=== PATIENT | male | born 1955 | race Caucasian/White ===

== ENCOUNTER 2016-09-26 23:21 | Observation (INO) ==
--- NOTE | 2016-09-26 23:45 | Emergency Department Note ---
Disposition Clinical Impression: NSTEMI (non-ST elevated myocardial infarction) Disposition: Admitted As Inpatient Condition: Good Time of Disposition: 00:46 Chest Pain HPI - General Chief Complaint: ED Chest Pain Stated Complaint: "chest pain" Time Seen by Provider: 09/26/16 23:42 Source: patient Mode of arrival: ambulatory Limitations: no limitations Vital Signs Reviewed: Yes Nursing Notes Reviewed: Yes - History of Present Illness HPI Narrative: [id number] male history of CAD s/p CABG 2003, hypertension, hyperlipidemia, pack per day smoker presents to the ED with chest pain. He first experienced chest pain but did not want to tell anyone as his was sick. Pain worsened around 1600 today. He has some associated nausea, shortness of breath without vomiting. Pain is in the midsternum that radiates up both sides of the jaw and arms. This feels just like his last heart attack. He has a strong cardiac history. He has a nitro patch that he is suppose to wear all the time, currently on his right foot. Pain has not resolved with nitropaste. He took a full dose 324 aspirin prior to arrival. Follows with Dr. Shabazz, had stents placed last year. Takes aspirin and plavix. Denies any bloody stool, black tarry stool. Pt complaint: chest pain Severity scale (1-10): 3 - Related Data Home Medications Medication Instructions Recorded Confirmed Atorvastatin [Lipitor] 40 mg PO HS 05/29/16 09/27/16 Carvedilol 12.5 mg PO HS 05/29/16 09/27/16 Clopidogrel [Plavix] 75 mg PO DAILY 05/29/16 09/27/16 Isosorbide MONOnitrate [Isosorbide 120 mg PO HS 05/29/16 09/27/16 Mononitrate ER] Lisinopril [Zestril] 20 mg PO DAILY 05/29/16 09/27/16 Nitroglycerin 0.4 mg TD DAILY 05/29/16 09/27/16 Nitroglycerin [Nitrostat] 0.4 mg SL Q5M PRN 05/29/16 09/27/16 Oxycodone HCl 10 mg PO PRN PRN 05/29/16 09/27/16 Pantoprazole Sodium [Protonix] 40 mg PO DAILY 05/29/16 09/27/16 Quetiapine Fumarate [Seroquel Xr] 50 mg PO BID 05/29/16 09/27/16 Ranolazine [Ranexa] 1,000 mg PO BID 05/29/16 09/27/16 Venlafaxine HCl [Venlafaxine HCl 150 mg PO DAILY 05/29/16 09/27/16 ER] Aspirin 325 mg PO DAILY 08/16/16 09/27/16 ClonazePAM [Klonopin] 0.5 mg PO BID 09/27/16 09/27/16 Allergies Allergy/AdvReac Type Severity Reaction Status Date / Time No Known Allergies Allergy Verified 08/16/16 10:05 All systems ED: reviewed and negative except as stated. Constitutional: Denies: fever, chills Cardiovascular: Reports: chest pain. Denies: palpitations, dyspnea on exertion Respiratory: Denies: cough, dyspnea Gastrointestinal: Denies: abdominal pain, nausea, vomiting Genitourinary: Denies: urgency, dysuria, frequency Musculoskeletal: Denies: back pain Integumentary: Denies: rash, abrasion Chest Pain PMH - Past Medical History Medical history: Reports: arthritis, CHF, COPD, coronary artery disease, GERD, hyperlipidemia, hypertension, myocardial infarction Surgical history: Reports: no surgical history Psychiatric history: Reports: depression - Social History Smoking Status: Current every day smoker Alcohol use: Reports: none Drug use: Reports: none Physical Exam - General Limitations: no limitations General appearance: alert Course Course Narrative: History of CAD presents the ED with chest pain. He was a direct bed from triage with EKG changes in the anteroseptal and lateral leads, new T-wave inversions from prior 05/03/2013. He reports the pain is similar to his heart attack past. He continues to smoke. Pain radiates up the jaw. Chest pain workup initiated. His blood pressure is 150/90, give him a trial of nitroglycerin. Reports taken a full dose aspirin prior to arrival. Will likely admit. - Reevaluation(s) Reevaluation #1: Troponin elevated 0.09. Admit for NSTEMI. Pain did not improve much after 3 nitros. Morphine ordered for pain. Hospitalist paged for admission, NSTEMI and tobacco abuse. Time: 00:48 - Consultations Consultation #1: Spoke with on-call hospitalist pradip Prasad to admit for NSTEMI. After 3 nitro his pain did not improve much. Request to get pain controlled if not consult Cardiology. Lovenox 1mg/kg. Time: 00:48 Consultation #2: Pain improved, notified hospitalist pradip Prasad to admit to floor without cardiology consult. Time: 01:38 Vital Signs Temperature 98 F 09/26/16 23:36 Pulse Rate 74 09/26/16 23:36 Respiratory Rate 16 09/26/16 23:36 Blood Pressure 150/99 09/26/16 23:36 O2 Sat by Pulse Oximetry 98 09/26/16 23:36 Temperature 98 F 09/27/16 03:11 Pulse Rate 57 09/27/16 05:00 Respiratory Rate 18 09/27/16 05:00 Blood Pressure 106/63 09/27/16 05:00 O2 Sat by Pulse Oximetry 93 L 09/27/16 05:00 Oxygen Delivery Oxygen Delivery Room Air Chest Pain - Medical Records Medical records reviewed: Yes I reviewed the patient's medical records. - Lab Data Lab results reviewed: Yes I reviewed the patient's lab results. Result diagrams: 09/26/16 23:49 09/26/16 23:49 Lab Results 09/26/16 09/26/16 09/26/16 Range/Units 23:49 23:49 23:49 WBC 10.9 (4.3-11.1) K/mcL RBC 5.19 (4.19-5.50) M/mcL Hgb 14.6 (12.9-16.9) g/dL Hct 45.0 (37.5-50.1) % MCV 86.7 (83.0-100.0) fL MCH 28.1 (28.0-33.3) pg MCHC 32.4 (31.6-35.5) g/dL RDW 13.8 (11.5-14.5) % Plt Count 289 (140-400) K/mcL MPV 9.0 L (9.4-12.4) fL Immature Gran % 0.3 (0-4) % Seg Neutrophils % 59.5 % Lymphocytes % 26.6 % Monocytes % 7.8 % Eosinophils % 4.8 % Basophils % 1.0 % Neutrophils # 6.5 (1.6-8.9) K/mcL Lymphocytes # 2.9 (0.6-4.6) K/mcL Monocytes # 0.9 (0.0-1.3) K/mcL Eosinophils # 0.5 (0.0-0.6) K/mcL Basophils # 0.1 (0.0-0.2) K/mcL PT 11.7 (9.4-12.1) Seconds INR 1.1 APTT 33.0 (26.0-36.0) Seconds Sodium 138 (136-145) mEq/L Potassium 3.8 (3.5-4.5) mEq/L Chloride 107 (98-109) mEq/L Carbon Dioxide 25 (19-29) mEq/L BUN 18 (8-26) mg/dL Creatinine 0.99 (0.72-1.25) mg/dL Est GFR ( Amer) > 60 (> 60) Est GFR (Non-Af Amer) > 60 (> 60) BUN/Creatinine Ratio 18 (6-26) Glucose 122 H (70-99) mg/dL Calculated Osmolality 289 (280-300) Calcium 9.3 (8.6-10.8) mg/dL Troponin I (0-0.03) ng/mL 09/26/16 Range/Units 23:49 WBC (4.3-11.1) K/mcL RBC (4.19-5.50) M/mcL Hgb (12.9-16.9) g/dL Hct (37.5-50.1) % MCV (83.0-100.0) fL MCH (28.0-33.3) pg MCHC (31.6-35.5) g/dL RDW (11.5-14.5) % Plt Count (140-400) K/mcL MPV (9.4-12.4) fL Immature Gran % (0-4) % Seg Neutrophils % % Lymphocytes % % Monocytes % % Eosinophils % % Basophils % % Neutrophils # (1.6-8.9) K/mcL Lymphocytes # (0.6-4.6) K/mcL Monocytes # (0.0-1.3) K/mcL Eosinophils # (0.0-0.6) K/mcL Basophils # (0.0-0.2) K/mcL PT (9.4-12.1) Seconds INR APTT (26.0-36.0) Seconds Sodium (136-145) mEq/L Potassium (3.5-4.5) mEq/L Chloride (98-109) mEq/L Carbon Dioxide (19-29) mEq/L BUN (8-26) mg/dL Creatinine (0.72-1.25) mg/dL Est GFR ( Amer) (> 60) Est GFR (Non-Af Amer) (> 60) BUN/Creatinine Ratio (6-26) Glucose (70-99) mg/dL Calculated Osmolality (280-300) Calcium (8.6-10.8) mg/dL Troponin I 0.09 H* (0-0.03) ng/mL - Radiology Data Radiology results reviewed: Yes I reviewed the patient's radiology results. Chest X-Ray 09/26/16 23:42 IMPRESSION: No significant findings in the chest. D/ / Larry Lomas MD / Larry Lomas MD Interpreting Provider: Larry Lomas MD - EKG Data EKG attestation: Yes I reviewed and interpreted this EKG. EKG results narrative: EKG performed 2329 normal sinus rhythm 61 bpm, T wave inversions in V3-V6 as well as Lead II that are new from prior EKG 05/03/2013. He is having chest pain , DIRECT bed to 3 from triage. No STEMI pattern. Heart Score - Score History: Highly Suspicious EKG: Non Specific repolarisation Disturbance Age: 45-65 Risk Factors: 1-2 risk factors Troponin: 1-3x normal limit HEART Score Total: 6 Attestation Statement - Attestation Attestation: Dr. Dunlap note: Patient was seen in conjunction with resident Dr. Charles Chao; please see his chart for complete documentation. I spent [id number] time with the patient and agree with the patient's treatment and disposition. EKG was read and immediately upon arrival the patient. He admits he has been having pain for 2 days and did not want to tell me about his pain got worse tonight and went to both sides of his jaw. No diaphoresis at this time. Pain improved after nitroglycerin and morphine. He continues to smoke. He has had multiple cardiac events before and after his bypass surgery many years ago. Admitted in stabilized condition
[2016-09-26 23:57] LABS: Basophils # 0.1 K/mcL (0.0-0.2); Eosinophils # 0.5 K/mcL (0.0-0.6); Eosinophils % 4.8 %; Hemoglobin 14.6 g/dL (12.9-16.9); Immature Granulocytes % 0.3 % (0-4); Lymphocytes # 2.9 K/mcL (0.6-4.6); Lymphocytes % 26.6 %; Mean Corpuscular HGB Conc 32.4 g/dL (31.6-35.5); Mean Corpuscular Hemoglobin 28.1 pg (28.0-33.3); Mean Corpuscular Volume 86.7 fL (83.0-100.0); Monocytes # 0.9 K/mcL (0.0-1.3); Monocytes % 7.8 %; Neutrophils # 6.5 K/mcL (1.6-8.9); Platelet Count 289 K/mcL (140-400); Red Blood Count 5.19 M/mcL (4.19-5.50); Red Cell Distribution Width 13.8 % (11.5-14.5); Segmented Neutrophils % 59.5 %
[2016-09-26] MEDS: Nitroglycerin 0.4 MG TAB.SUBL SL PRN (23:57)
[2016-09-27] MEDS: Nitroglycerin 0.4 MG TAB.SUBL SL PRN ×2 (00:02→00:07)
[2016-09-27 00:03] LABS: INR 1.1; Prothrombin Time 11.7 Seconds (9.4-12.1)
[2016-09-27] MEDS ORDERED: 0.9 % Sodium Chloride 1,000 ML ONE ×3 (00:04→14:23)
[2016-09-27] MEDS ORDERED: 0.9 % Sodium Chloride 1,000 ML IVC ONE (00:05)
[2016-09-27 00:13] LABS: BUN/Creatinine Ratio 18 (6-26); Blood Urea Nitrogen 18 mg/dL (8-26); Calcium 9.3 mg/dL (8.6-10.8); Carbon Dioxide 25 mEq/L (19-29); Chloride 107 mEq/L (98-109); Glucose 122 mg/dL (70-99); Osmolality,Calculated 289 (280-300); Potassium 3.8 mEq/L (3.5-4.5); Sodium 138 mEq/L (136-145); eGFR For African Americans > 60 (> 60); eGFR For Non-African Americans > 60 (> 60)
[2016-09-27] MEDS ORDERED: *HR* Morphine 2 MG/ML SYRINGE IVP ONE (00:44)
[2016-09-27] MEDS ORDERED: *HR* Enoxaparin 80 MG/0.8 ML SYRINGE SQ STA (00:45)
--- NOTE | 2016-09-27 01:28 | Internal Med History&Physical ---
<Elmer Carpio - Last Filed: 09/27/16 02:13> Date of Encounter: 09/27/16 Time of Encounter: 01:24 Assessment and Plan (1) NSTEMI (non-ST elevated myocardial infarction) Current visit: Yes Status: Acute Possible NSTEMI given characteristics of chest pain at rest and elevated troponin with new t-wave inversions on EKG Will consult cardiology, appreciate recommendations Patient did receive a dose of therapeutic Lovenox, which will continue tomorrow Continue supportive measures with Morphine, Nitro drip, gentle maintenance IVF as he is NPO for possible intervention per cardiology Initial troponins 0.09, will trend x2 (2) CAD (coronary artery disease) of artery bypass graft Current visit: Yes Status: Chronic Continue home ASA, Ranexa, Lipitor, Coreg and Nitro Qualifiers: Qualified Code(s): I25.810 - Atherosclerosis of coronary artery bypass graft( s) without angina pectoris (3) HTN (hypertension) Current visit: No Status: Acute Qualifiers: Hypertension type: essential hypertension Qualified Code(s): I10 - Essential (primary) hypertension (4) Systolic CHF Current visit: No Status: Chronic Not in overt failure at this point as patient is not fluid overloaded He does not take any diuretics at home, will restart home Lisinopril when he advances diet Qualifiers: Congestive heart failure chronicity: chronic Qualified Code(s): I50.22 - Chronic systolic (congestive) heart failure (5) DVT prophylaxis Current visit: No Status: Acute Therapeutic Lovenox as above Internal Medicine - H&P: HPI Chief complaint: Chest pain Admitted From: Home Plans for Post Hospital Care: Home History of present illness: Mr. Blake is a 60 year old male who presents with chest pain that started last . He states that he has chronic chest pain intermittently and is usually relieved with Nitropaste. However these last few episodes were not relieved with Nitropaste and prompted him to visit the emergency department. He states the pain is located substernally and radiates to both jaws and both arms. The pain is not related with exertion or position, as it comes and goes randomly. He has had previous heart attacks and states this feels similar. He also reports intermittent shortness of breath, lightheadedness, and nausea but not denies any vomiting. Patient states that upon arrival to the ED the only thing that relieved his chest pain was morphine, however he still has mild substernal chest pain. Of note, patient has a significant cardiac history, including his first heart attack at age 38. He has also had a CABG in 2003 and received stents last year. He follows with Dr. Shabazz as an outpatient and recently had a loop recorder placed last month for history of TIAs, and has not been analyzed yet. Past Med Surg Social Fam HX - Past Medical History Medical history: arthritis, CHF, COPD, coronary artery disease, GERD, hyperlipidemia, hypertension, myocardial infarction Psychiatric history: depression - Past Surgical History Surgical History: no surgical history - Social History Smoking Status: Current every day smoker Smokeless Tobacco Status: Yes Alcohol use: none Drug use: none - Family History Mother Living Status: Hx Family Cardiac Disorders: Yes Hx Family Respiratory Disorders: No Hx Family Cancer: Yes Hx Family GI Disorders: No Hx Family Endocrine Disorder: Yes Hx Family Neuromuscular Disorders: No Hx Family Neurologic Disorders: Yes Hx Family HEENT Disorders: No Hx Family Autoimmune Disorders: No Internal Medicine - H&P: Meds Atorvastatin [Lipitor] 40 mg PO HS 05/29/16 [History] Carvedilol 12.5 mg PO HS 05/29/16 [History] Clopidogrel [Plavix] 75 mg PO DAILY 05/29/16 [History] Isosorbide MONOnitrate [Isosorbide Mononitrate ER] 120 mg PO HS 05/29/16 [ History] Lisinopril [Zestril] 20 mg PO DAILY 05/29/16 [History] Nitroglycerin 0.4 mg TD DAILY 05/29/16 [History] Nitroglycerin [Nitrostat] 0.4 mg SL Q5M PRN 05/29/16 [History] Oxycodone HCl 10 mg PO PRN PRN 05/29/16 [History] Pantoprazole Sodium [Protonix] 40 mg PO DAILY 05/29/16 [History] Quetiapine Fumarate [Seroquel Xr] 50 mg PO BID 05/29/16 [History] Ranolazine [Ranexa] 1,000 mg PO BID 05/29/16 [History] Venlafaxine HCl [Venlafaxine HCl ER] 150 mg PO DAILY 05/29/16 [History] Aspirin 325 mg PO DAILY 08/16/16 [History] ClonazePAM [Klonopin] 0.5 mg PO BID 09/27/16 [History] Allergies No Known Allergies Allergy (Verified 08/16/16 10:05) All Systems PM: A 10-system review of systems was performed and is negative for pertinent findings except as documented above in the HPI. - Constitutional Constitutional: no chills, no fever(s), no night sweats - EENT Eyes: no change in vision, no discharge, no pain, no photophobia Ears: no ear discharge, no ear pain, no tinnitus Nose, mouth and throat: no dysphagia, no nasal discharge, no neck pain, no sore throat - Cardiovascular Cardiovascular ROS IM: chest pain, dyspnea, lightheadedness, no diaphoresis, no palpitations, no syncope - Respiratory Respiratory: dyspnea, no cough, no wheezing, no excessive phlegm production - Gastrointestinal Gastrointestinal: nausea, no abdominal pain, no diarrhea, no hematemesis, no hematochezia, no melena, no vomiting - Musculoskeletal Musculoskeletal ROS IM: no numbness, no tingling - Integumentary Integumentary IM: no rash, no unusual bruising - Neurological Neurological ROS: no confusion, no convulsions, no focal weakness, no numbness, no tingling, no tremor(s) - Hematologic/Lymphatic Hematologic/Lymphatic: no easy bruising - Constitutional Vitals: Temp Pulse Resp BP Pulse Ox 98 F 56 16 159/87 97 09/26/16 23:36 09/27/16 01:11 09/27/16 01:12 09/27/16 01:12 09/27/16 01:11 General appearance: Present: cooperative, pleasant, no acute distress, answers questions appropriately - Head Head exam: Present: atraumatic, normocephalic - Eye Eye exam: Present: PERRL, conjuntiva pink, sclera anicteric - Neck Neck exam general surgery: Present: supple, trachea midline. Absent: lymphadenopathy - Respiratory Respiratory exam: Present: CTAB. Absent: accessory muscle use, rales, rhonchi, wheezes - Cardiovascular Cardiovascular exam: Present: RRR, +S1, +S2. Absent: diastolic murmur, gallop, rubs, systolic murmur - GI/Abdominal GI/Abdominal exam: Present: normal bowel sounds, soft, no peritoneal signs. Absent: distended, tenderness - Extremities Exam Extremities exam: Present: warm, radial pulses palpable and symetrical. Absent : calf tenderness, cyanotic, pedal edema - Neurological Exam Neurological exam: Present: alert, CN II-XII intact, no focal deficits. Absent : facial droop, speech deficit - Skin Skin exam: Present: dry, intact Internal Med - H&P Results - Labs CBC & Chem 7: 09/26/16 23:49 09/26/16 23:49 - EKG Data EKG shows normal: sinus rhythm Rate: normal - EKG Data Prior EKG available for review: yes When compared to previous EKG: there are significant changes Interpretation IM: other EKG comments: new t-wave inversions noted in lateral leads not seen in previous EKG 09/27/16 02:13 <Alejandrina Acosta - Last Filed: 09/27/16 05:21> Internal Medicine - H&P: HPI Admitted From: Emergency Dept History of present illness: Mr. Blake is a 60 year old male All Systems PM: A 10-system review of systems was performed and is negative for pertinent findings except as documented above in the HPI. - Constitutional Vitals: Temp Pulse Resp BP Pulse Ox 98 F 56 16 159/87 97 09/26/16 23:36 09/27/16 01:11 09/27/16 01:12 09/27/16 01:12 09/27/16 01:11 Internal Med - H&P Results - Labs CBC & Chem 7: 09/26/16 23:49 09/26/16 23:49 - Impressions ITS Impressions Chest X-Ray 09/26/16 23:42 IMPRESSION: No significant findings in the chest. D/ / Larry Lomas MD / Larry Lomas MD Interpreting Provider: Larry Lomas MD - Attending Attestation I examined this patient and my medical decision-making was reviewed with the Resident / Furniture Servicer (Dr Carpio). I agree with the documented findings, disposition and treatment plan as described except to the extent set forth below. 60 Y/M with history of CAD/CABG in 2003, current smoker presents with sharp, severe midsternal chest pain with radiation to jaws, constant with improvement with morphine and minimal improvement nitroglycerine. O/E: RRR, lungs clear to auscultation. EKG reviewed by me shows sinus rhythm, ST depression with T-wave inversion in V2 to V6 and lead 2. A/P: Acute coronary syndrome/NSTEMI: Aspirin, Lovenox, continue clopidogrel. Nitroglycerine infusion and morphine PRN. Cardiology consultation. Keep him nothing by mouth for possible cardiac catheterization.
[2016-09-27] MEDS ORDERED: Naloxone 0.4 MG/ML INJ IVP PRN (01:44)
[2016-09-27] MEDS ORDERED: Ondansetron 4 MG/2 ML VIAL IVP PRN (01:44)
[2016-09-27] MEDS ORDERED: Nitroglycerin 25 MG/250 ML INFUS..BTL IVC SCH (02:00)
[2016-09-27] MEDS: *HR* Morphine 2 MG/ML SYRINGE IVP PRN ×2 (02:35→20:07)
[2016-09-27] MEDS: 0.9 % Sodium Chloride 1,000 ML IVC SCH ×2 (03:12→22:47)
[2016-09-27 06:16] LABS: BUN/Creatinine Ratio 18 (6-26); Blood Urea Nitrogen 16 mg/dL (8-26); Calcium 8.3 mg/dL (8.6-10.8); Carbon Dioxide 24 mEq/L (19-29); Chloride 110 mEq/L (98-109); Chol/HDL Ratio 4.3 (0-4.9); Cholesterol 108 mg/dL (< 200); Glucose 100 mg/dL (70-99); HDL Cholesterol 25 mg/dL (40-59); LDL Cholesterol,Calculated 51 mg/dL (0-99); Magnesium 1.9 mg/dL (1.6-2.6); Osmolality,Calculated 291 (280-300); Phosphorous 3.1 mg/dL (2.3-4.7); Potassium 4.1 mEq/L (3.5-4.5); Sodium 140 mEq/L (136-145); Triglycerides 158 mg/dL (< 150); eGFR For African Americans > 60 (> 60); eGFR For Non-African Americans > 60 (> 60)
[2016-09-27] MEDS: Pantoprazole 40 MG VIAL IVP SCH (06:35)
[2016-09-27] MEDS: Lisinopril 20 MG TABLET PO SCH (08:00)
[2016-09-27] MEDS: Nicotine 21 MG PATCH.TD24 TD SCH (08:03)
[2016-09-27] MEDS: Aspirin 325 MG TABLET PO SCH (08:04)
[2016-09-27] MEDS: Ranolazine 500 MG TAB.ER.12H PO SCH ×2 (08:04→20:06)
[2016-09-27] MEDS: Venlafaxine XR (24 HR) 150 MG CAP.ER.24H PO SCH (08:04)
[2016-09-27] MEDS: clonazePAM 0.5 MG TABLET PO SCH ×2 (08:04→20:06)
--- NOTE | 2016-09-27 08:29 | Cardiology Consult Note ---
Date of Encounter: 09/27/16 Time of Encounter: 08:30 Assessment and Plan (1) NSTEMI (non-ST elevated myocardial infarction) Current Visit: Yes Status: Acute Per Cardiology: Troponin is elevated at 0.09 and 0.22. Currently chest pain-free on IV nitroglycerin drip.. ECG shows ST changes in leads 2, aVF, V3-V6. Discussed and reviewed with Dr. Sagar Suarez and Dr. Collins, plan for left heart catheterization today. Further recs after catheterization. (2) CAD (coronary artery disease) Current Visit: No Status: Chronic Per Cardiology: With CABG 4 in 2003. Last heart catheterization August 2014 showed patent SVG to LAD, SVG to diagonal 1, and SVG to PDA with patent stents. Patient had successful PTCA of proximal in-stent restenosis of the SVG to the OM1, however the failed attempt at PTCA and severe distal OM1 in-stent restenosis (noted to be small vessel). No LAI graft noted-- cath report reviewed with Dr. Collins and no LAI was used for CABG. On cath report was mention of suspicion of apical LV thrombus, however echo at that time showed no evidence of apical thrombus. On aspirin, Plavix, Lovenox, statin, beta vinay, CHANTAL inhibitor, long-acting nitrate, and max dose of Ranexa. Qualifiers: Coronary Disease-Associated Artery/Lesion type: [place] artery [place] vs. transplanted heart: [place] heart Associated angina: with stable angina Qualified Code(s): I25.118 - Atherosclerotic heart disease of [place] coronary artery with other forms of angina pectoris (3) Encounter for loop recorder check Current Visit: Yes Status: Acute Per Cardiology: Had suspected TIA April 2016. Now has loop recorder inserted July 2016. Patient appears to be asymptomatic with no concerns of A. fib. Telemetry reviewed and shows sinus rhythm with no arrhythmias noted. Will interrogate loop recorder for further evaluation Discussion w patient/family: The assessment and plan as outlined above was discussed with the patient and/or family members who expressed understanding and agreement. All questions were answered. Thank you for involving us in the care of your patient. Please call with any questions. History of Present Illness Consult date: 09/27/16 Requesting physician: Alejandrina Acosta Consult reason: CP Chief complaint: CP History of present illness: Mr. Blake is a 60 year old male with a relevant PMH: CAD with CABG 4 in 2003 and history of stenting, nicotine abuse, dyslipidemia, COPD, hypertension. Follows with Dr. Shabazz with cardiology. Last saw Dr. Sagar Suarez July 2016 for loop insertion for evaluation of cryptogenic TIA. Patient seen today with son at bedside. She reports intermittent midsternal chest pressure/burning over the past 4-5 days relieved with rest. He reports yesterday evening he awakened with about 7 out of 10 midsternal chest pressure with radiation to his bilateral neck and jaw region with radiation to his bilateral arms. He reports he took nitroglycerin with minimal to no relief. Reports experienced some nausea and mild shortness of breath with his episode. He reports he continues to smoke. His episodes he denies any palpitations or fluttering sensations. Does report back in April 2016 experienced difficulty with speech with facial drooping. Has had no further recurrence. Past Med Surg Social Fam HX - Past Medical History Attestation: Yes The following information was validated with the patient. Source: patient, old records reviewed, obtained from family Medical history: arthritis, CHF, COPD, coronary artery disease, GERD, hyperlipidemia, hypertension, myocardial infarction Psychiatric history: depression - Past Surgical History Surgical History: no surgical history - Social History Smoking Status: Current every day smoker Smokeless Tobacco Status: Yes Alcohol use: none Drug use: none - Family History Mother Living Status: Hx Family Cardiac Disorders: Yes Hx Family Respiratory Disorders: No Hx Family Cancer: Yes Hx Family GI Disorders: No Hx Family Endocrine Disorder: Yes Hx Family Neuromuscular Disorders: No Hx Family Neurologic Disorders: Yes Hx Family HEENT Disorders: No Hx Family Autoimmune Disorders: No Medications and Allergies Atorvastatin [Lipitor] 40 mg PO HS 05/29/16 [History] Carvedilol 12.5 mg PO BID 05/29/16 [History] Clopidogrel [Plavix] 75 mg PO DAILY 05/29/16 [History] Isosorbide MONOnitrate [Isosorbide Mononitrate ER] 120 mg PO HS 05/29/16 [ History] Lisinopril [Zestril] 20 mg PO DAILY 05/29/16 [History] Nitroglycerin [Nitrostat] 0.4 mg SL Q5M PRN 05/29/16 [History] Oxycodone HCl 10 mg PO Q2H PRN 05/29/16 [History] Pantoprazole Sodium [Protonix] 40 mg PO DAILY 05/29/16 [History] Quetiapine Fumarate [Seroquel Xr] 50 mg PO BID 05/29/16 [History] Ranolazine [Ranexa] 1,000 mg PO BID 05/29/16 [History] Venlafaxine HCl [Venlafaxine HCl ER] 150 mg PO DAILY 05/29/16 [History] Aspirin 325 mg PO DAILY 08/16/16 [History] ClonazePAM [Klonopin] 0.5 mg PO BID 09/27/16 [History] Tamsulosin [Flomax] 0.4 mg PO DAILY 09/27/16 [History] Allergies No Known Allergies Allergy (Verified 09/27/16 09:21) All Systems Review: A 10-system review of systems was performed and is negative for pertinent findings except as documented above in the HPI. - Cardiovascular Cardiovascular: as per HPI, chest pain at rest, dyspnea at rest - Gastrointestinal Gastrointestinal: nausea Physical Examination Vital Signs, Last 4 Hours Temp Pulse Resp BP Pulse Ox 09/27/16 08:17 54 127/78 09/27/16 08:05 53 133/78 09/27/16 07:45 63 138/86 09/27/16 07:30 57 128/74 09/27/16 07:15 58 117/59 09/27/16 07:08 98.0 F 82 19 117/68 97 09/27/16 05:00 57 18 106/63 93 L General: Conversant, No Apparent Distress HEENT: Atraumatic, Normocephaly, Mucus Membranes Moist Neck: No JVD, Normal carotid pulses Cardiac: Reg Rate and Rhythm, Normal S1 and S2, No Murmur Lungs: Normal Breath Sounds, No Wheeze, Rales, Rhonchi Neuro: Alert and responsive, No focal deficits noted, Other (Somewhat somnolent) Abdomen: Soft, Non-Tender Skin: No rashes noted on visualized skin, Other (Loop recorder insertion site well approximated and healed) Musculoskeletal: No Chest Wall Tenderness Extremities: No Edema, Normal Pulses Results 09/26/16 23:49 09/27/16 05:48 Lab Results Laboratory Tests 09/26/16 09/26/16 09/27/16 23:49 23:49 05:48 INR 1.1 Troponin I 0.09 H* LDL Cholesterol, Calc 51 09/27/16 05:48 INR Troponin I 0.22 H* LDL Cholesterol, Calc ITS Impressions Chest X-Ray 09/26/16 23:42 IMPRESSION: No significant findings in the chest. D/ / Larry Lomas MD / Larry Lomas MD Interpreting Provider: Larry Lomas MD Intake & Output 09/24/16 09/25/16 09/26/16 09/27/16 22:59 22:59 23:59 23:59 Intake Total Balance Weight 84.323 kg Active Medications Aspirin (Aspirin) 325 mg PO DAILY [facility] Stop: 03/29/17 09:01 Last Admin: 09/27/16 08:04 Dose: 325 mg Atorvastatin Calcium (Lipitor) 40 mg PO HS [facility] Stop: 03/29/17 21:01 Carvedilol (Coreg) 12.5 mg PO HS [facility] Stop: 03/29/17 21:01 Clonazepam (Klonopin) 0.5 mg PO BID [facility] Stop: 03/29/17 09:01 Last Admin: 09/27/16 08:04 Dose: 0.5 mg Clopidogrel Bisulfate (Plavix) 75 mg PO DAILY [facility] Stop: 03/29/17 09:01 Last Admin: 09/27/16 08:04 Dose: 75 mg Enoxaparin Sodium (Lovenox) 80 mg 1 mg/kg (80 mg) SQ Q12HR [facility] PRN Reason: Protocol Stop: 03/29/17 15:01 Sodium Chloride (0.9 % Sodium Chloride) 1,000 mls @ 50 mls/hr IVC .Q20H [facility] Stop: 03/29/17 01:46 Last Admin: 09/27/16 03:12 Dose: 50 mls/hr Nitroglycerin (Nitroglycerin) 25 mg in 250 mls @ 3 mls/hr IVC .Q24H [facility] PRN Reason: 5 MCG/MIN Stop: 03/29/17 02:01 Last Infusion: 09/27/16 07:42 Dose: 12.5 mcg/min, 7.5 mls/hr Isosorbide Mononitrate (Imdur) 120 mg PO HS [facility] Stop: 03/29/17 21:01 Lisinopril (Zestril) 20 mg PO DAILY [facility] PRN Reason: Protocol Stop: 03/29/17 09:01 Last Admin: 09/27/16 08:00 Dose: Not Given Morphine Sulfate (Morphine Sulfate) 2 mg IVP Q3H PRN PRN Reason: Severe Pain (7-10) Stop: 03/29/17 01:45 Last Admin: 09/27/16 02:35 Dose: 2 mg Naloxone HCl (Narcan) 0.4 mg IVP Q2MIN PRN PRN Reason: Opioid Reversal Stop: 03/29/17 01:45 Nicotine (Nicoderm) 21 mg TD DAILY [facility] PRN Reason: Protocol Stop: 03/29/17 09:01 Last Admin: 09/27/16 08:03 Dose: 21 mg Nitroglycerin (Nitroglycerin) 0.4 mg SL Q5MIN PRN PRN Reason: Chest Pain Stop: 03/28/17 23:48 Last Admin: 09/27/16 00:07 Dose: 0.4 mg Omeprazole (Prilosec) 20 mg PO DAILY [facility] Stop: 03/29/17 09:01 Last Admin: 09/27/16 08:04 Dose: 20 mg Ondansetron HCl (Zofran) 4 mg IVP Q6HR PRN PRN Reason: Nausea And Vomiting Stop: 03/29/17 01:45 Oxycodone HCl (Roxicodone) 10 mg PO Q4H PRN PRN Reason: Pain Stop: 03/29/17 06:53 Pantoprazole Sodium (Protonix) 40 mg IVP 0630 [facility] Stop: 03/29/17 06:31 Last Admin: 09/27/16 06:35 Dose: 40 mg Quetiapine Fumarate (Seroquel) 50 mg PO BID [facility] Stop: 03/29/17 09:01 Last Admin: 09/27/16 08:04 Dose: 50 mg Ranolazine (Ranexa) 1,000 mg PO BID [facility] Stop: 03/29/17 09:01 Last Admin: 09/27/16 08:04 Dose: 1,000 mg Venlafaxine HCl (Effexor Xr) 150 mg PO DAILY [facility] PRN Reason: Protocol Stop: 03/29/17 09:01 Last Admin: 09/27/16 08:04 Dose: 150 mg - Imaging and Cardiology Chest Xray: report reviewed Stress Test: report reviewed Echo: report reviewed Cardiac cath: report reviewed - EKG Interpretation EKG results cardiology: personally reviewed (ST depression noted in leads 2, aVF , and V3 through V6), other (24-hour telemetry reviewed with average heart rate 57, sinus bradycardia to sinus rhythm, no significant events noted) Consult Discharge Plan - Plan Referrals: Isabelle Redman, [employer] [Primary Care Provider] -
[2016-09-27] MEDS ORDERED: *HR* Midazolam HCl 2 MG/2 ML VIAL ONE ×2 (13:38→14:21)
[2016-09-27] MEDS ORDERED: *HR* Heparin 10,000 UNIT/10 ML VIAL ONE (13:39)
[2016-09-27] MEDS ORDERED: Verapamil 5 MG/2 ML VIAL ONE (13:39)
[2016-09-27] MEDS ORDERED: *HR* FentaNYL (PF) 100 MCG/2 ML VIAL ONE ×2 (13:39→14:35)
[2016-09-27] MEDS ORDERED: Heparin 1,000 UNITS/500 mL NS 500 ML ONE (13:39)
[2016-09-27] MEDS ORDERED: Nitroglycerin 1,000 MCG/10 ML VIAL IV ONE (13:40)
--- NOTE | 2016-09-27 14:14 | Pre-Sedation Evaluation ---
Pre-sedation evaluation - Pre-sedation checklist Date of procedure: 09/27/16 Procedure: [facility] Recent Vitals: Last Vital Signs Temp 99 F 09/27/16 11:24 Pulse 60 09/27/16 11:24 Resp 16 09/27/16 11:24 BP 122/75 09/27/16 11:24 Pulse Ox 97 09/27/16 07:08 H&P (including ROS) documented in medical record: Yes Previous reaction to sedatives/anesthetics: No Dietary Status: NPO after Midnight Dentition: No loose teeth or bridges ASA Classification *see protocol: CLASS II-Mild systemic disease Plan of Care: Pt appropriate candidate for procedure/moderate/conscious sedation , Risks/benefits of procedure/sedation discussed w/ patient/family
[2016-09-27] MEDS ORDERED: *HR* Midazolam HCl 5 MG/5 ML VIAL IVP ONE (14:40)
[2016-09-27] MEDS ORDERED: *HR* Enoxaparin 80 MG/0.8 ML SYRINGE SQ SCH (15:00)
--- NOTE | 2016-09-27 15:44 | Invasive Diagnostic Lab Proc ---
Name: Sagar Blake Date of Study: 09/27/2016 Date: 1955 Ht: 72.0in Medical Record#: [id number] Age: 60 Wt: 185.41lb Gender: Male BSA: 2.06 Order #: [id number] BMI: 25.14 Physicians Procedure Physician: Steffen Collins MD[facility] Referring MD: Referring MD: Staff Name Position Time In Barbara Dee RT (R) Monitor 02:11 PM Re Perri RT (R) Scrub 02:12 PM Ron Valenzuela RN Supervisor Ore Dressing 02:12 PM Indications Indication Non-Stemi Procedures Performed Procedure L HRT ART/GRFT ANGIO PRQ CARD REVASC WI 1 VSL Pre-Procedure Checklist Informed consent is complete signed and on chart. H\\T\\P is on chart. ID band is on and ID verified with patient. Patient NPO for procedure The procedure was described for the patient and questions were answered. Blood Pressure: 121/76 ECG is on chart. Plan of Care Patient will tolerate the procedure without complications. Adequate level of comfort will be maintained. Hemodynamics will remain stable Patient will recover from procedure without complications. Respiratory function will be maintained. Cardiac rhythm will remain stable. Patient temperature will be maintained. Patient and/or family have verbalized understanding of the procedure. Patient Education Chief Complaint/Reason for Test: Cardiac Cath Developmental Category: Adult (18-64 years) Developmentally Appropriate for Age: Yes Learning Barriers: None Education Needs: Procedure Education Method: Verbal Information Taught: Cardiac Cath Educational Evaluation: Able to repeat information Intravenous Access Time IV Size Location DC'd Fluid/Drip Rate Units RN 01:36 PM 18g 1 1/" Peripheral-Lock On Arrival 0.9NaCl 25 ml/hr Allergies No Known Allergies Vital Signs Time BP (mmHg) HR (bpm) O2 Sat. RR (bpm) LOC 121 / 76 55 97 % 19 5 = Fully awake and oriented or at pre-proc level 02:13 PM / % 4 = Oriented but drowsy 02:13 PM / % 4 = Oriented but drowsy 02:11 PM 142 / 75 61 97 % 22 02:15 PM 136 / 78 66 95 % 18 02:20 PM 129 / 75 64 94 % 20 02:26 PM 134 / 68 65 93 % 26 02:31 PM 150 / 96 70 93 % 17 02:36 PM 172 / 141 81 94 % 10 02:41 PM 176 / 109 87 94 % 8 02:46 PM 167 / 116 87 89 % 18 02:51 PM 173 / 112 84 94 % 39 02:56 PM 156 / 109 82 97 % 18 03:01 PM 147 / 93 81 97 % 26 03:23 PM 158 / 96 75 96 % 20 4 = Oriented but drowsy 03:32 PM 160 / 96 71 96 % 16 4 = Oriented but drowsy Procedural Medications Time Medication Dose Units Method Given By 02:12 PM Oxygen 2 L/min nasal cannula [place], Ron RN 02:12 PM Versed 2 mg Intravenous [place], Ron RN 02:12 PM Fentanyl 50 mcg Intravenous [place], Ron RN 02:20 PM Versed 1 mg Intravenous [place], Ron RN 02:20 PM Fentanyl 25 mcg Intravenous [place], Ron RN 02:22 PM Lidocaine 2% 20 ml Subcutaneous Steffen Collins MD, [facility] 02:32 PM Versed 1 mg Intravenous [place], Ron RN 02:33 PM Fentanyl 50 mcg Intravenous [place], Ron RN 02:36 PM Nitroglycerin 15 mcg/min Intravenous [place], Ron RN 02:39 PM Versed 2 mg Intravenous [place], Ron RN 02:39 PM Fentanyl 50 mcg Intravenous [place], Ron RN 02:46 PM Heparin 3000 units Intravenous [place], Ron RN 02:51 PM Oxygen 10 L/min simple face mask Qi Ball RN 02:53 PM Oxygen 15 L/min 100% non rebreather mask Qi Ball RN 03:08 PM Oxygen 6 L/min nasal cannula Qi Ball RN 03:22 PM Oxygen 4 L/min nasal cannula Qi Ball RN 02:40 PM Benadryl 50 mg Intravenous [place], Ron CONNELLY ASA Classification: CLASS II- Mild systemic disease (i.e. well-controlled diabetes, hypertension, asthma, cigarette smoking) Daniel Score Preprocedure Postprocedure Activity 2- Moves 4 extremities sustained head lift Activity 2- Moves 4 extremities sustained head lift Circulation 2- SBP +/= 20 points of pre-anesthetic level Circulation 2- SBP +/= 20 points of pre-anesthetic level Consciousness 2- Awake and alert oriented x 3 Consciousness 2- Awake and alert oriented x 3 O2 Saturation 2- Able to maintain O2 satruation of 92% on room air O2 Saturation 2- Able to maintain O2 satruation of 92% on room air Respiratory 2- Able to deep breathe and cough well Respiratory 2- Able to deep breathe and cough well Total Score 10 Total Score 10 Contrast Agent: Isovue Diagnostic Contrast: 130 ml Total Contrast: 130 ml Fluoro Dose: 899 mGy Activated Clotting Time Time Seconds to Clot Procedure Log Time Note Enter By 02:10 PM Vitals capture started with the following parameters, Patient=Adult, Interval=5 min, Initial Mjxtlqtm=849 mmHg, Deflation Rate=5 mmHg, Cuff placed on Left Arm 02:10 PM CathStat 02:11 PM HR=61 bpm, UBLV=955/75 mmhg, SpO2=97.0 %, Resp=22 B/min, Comment=NSR 02:11 PM Pt 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 Bilateral groin prepped with Chloraprep by Barbara Dee RT (R), safety strap applied then patient was draped. Skin intact. [email or web address] 02:12 PM Physician arrived 14:12 [email or web address] 02:12 PM ASA Class CLASS II- Mild systemic disease (i.e. well-controlled diabetes, hypertension, asthma, cigarette smoking) [email or web address] 02:12 PM Bari and srinivas completed 3 02:12 PM Sign in performed according to hospital policy. [email or web address] 02:12 PM Procedure start 14:12 [email or web address] 02:12 PM Time: 14:12 Oxygen on at 2 L/min per nasal cannula by Ron Valenzuela RN [email or web address] 02:12 PM Time: 14:12 Versed 2 mg Intravenous Given by Ron Valenzuela RN [email or web address] 02:12 PM Time: 14:12 Fentanyl 50 mcg Intravenous Given by Ron Valenzuela RN [email or web address] 02:13 PM Time: 14:13 Patient comfortable and pain free: Yes [email or web address] 02:13 PM Time: 14:13LOC: 4 = Oriented but drowsy [email or web address] 02:15 PM HR=66 bpm, BZNV=794/78 mmhg, SpO2=95.0 %, Resp=18 B/min, Comment=NSR 02:20 PM [ Start or Stop Vital ] 02:20 PM Time: 14:20 Versed 1 mg Intravenous Given by Ron Valenzuela RN [email or web address] 02:20 PM Time: 14:20 Fentanyl 25 mcg Intravenous Given by Ron Valenzuela RN [email or web address] 02:20 PM HR=64 bpm, EBEP=194/75 mmhg, SpO2=94.0 %, Resp=20 B/min, Comment=NSR 02:21 PM Time out performed according to hospital policy [email or web address] 02:22 PM Recorded ECG: HR=67 Condition=Condition 1 02:22 PM Pressure channel 1 zeroed. 02:23 PM Time: 14:22 20 ml Lidocaine 2% to right groin Subcutaneous Given by [facility], [email or web address] 02[facility]23 PM Access obtained by percutaneous puncture. 6Fr 10cm [place] sheath placed in right Femoral artery. [id number] [email or web address] 02:24 PM 0.035 145cm Navilyst 3mmJ wire [id number] [email or web address] 02:24 PM 5Fr FR 4 catheter inserted over the wire [facility] [email or web address] 02:25 PM SVG to the RPDA angio performed in multiple views. [email or web address] 02:25 PM Recorded Pressure: Ao, HR=66, Condition=Condition 1 (Aorta) Ao 121/73/95 02:26 PM HR=65 bpm, DWUI=195/68 mmhg, SpO2=93.0 %, Resp=26 B/min, Comment=NSR 02:27 PM Recorded Pressure: Ao, HR=69, Condition=Condition 1 (Aorta) Ao 125/76/99 02:28 PM Time: 14:13LOC: 4 = Oriented but drowsy [email or web address] 02:28 PM Time: 14:13 Patient comfortable and pain free: Yes [email or web address] 02:29 PM Recorded Pressure: Ao, HR=70, Condition=Condition 1 (Aorta) Ao 100/62/80 02:31 PM HR=70 bpm, GFCT=137/96 mmhg, SpO2=93.0 %, Resp=17 B/min, Comment=NSR 02:32 PM Catheter removed [email or web address] 02:32 PM 5Fr LCB catheter inserted over the wire [id number] [email or web address] 02:32 PM SVG to the 1st OM angio performed in multiple views. [email or web address] 02:33 PM Time: 14:32 Versed 1 mg Intravenous Given by Ron Valenzuela RN [email or web address] 02:33 PM Time: 14:33 Fentanyl 50 mcg Intravenous Given by Ron Valenzuela [email or web address] 02:33 PM SVG to the LAD angio performed in multiple views. [email or web address] 02:35 PM Catheter removed [email or web address] 02:36 PM 5Fr FL 4 catheter inserted over the wire DNC [email or web address] 02:36 PM HR=81 bpm, ELXQ=664/141 mmhg, SpO2=94.0 %, Resp=10 B/min, Comment=NSR 02:37 PM Time: 14:36 Nitroglycerin 15 mcg/min Intravenous Given by Ron Valenzuela RN Willson pump [email or web address] 02:37 PM Recorded Pressure: Ao, HR=80, Condition=Condition 1 (Aorta) Ao 159/106/131 02:38 PM Catheter removed [email or web address] 02:38 PM 5Fr MPA catheter inserted over the wire [id number] [email or web address] 02:39 PM Time: 14:39 Versed 2 mg Intravenous Given by Ron Valenzuela RN [email or web address] 02:39 PM Time: 14:39 Fentanyl 50 mcg Intravenous Given by Ron Valenzuela RN [email or web address] 02:40 PM Time: 14:40 Benadryl 50 mg Intravenous Given by Ron Valenzuela RN [email or web address] 02:41 PM HR=87 bpm, HLVV=889/109 mmhg, SpO2=94.0 %, Resp=8 B/min, Comment=NSR 02:42 PM Catheter removed [email or web address] 02:43 PM 6Fr MPA Runway guide catheter was used to cannulate the PCI vessel successfully. reused? No [email or web address] 02:43 PM .014 PT Graphix 182cm guide wire across target lesion- successful. reused? No [email or web address] 02:43 PM Inflation device was opened. [email or web address] 02:44 PM Recorded Pressure: Ao, HR=90, Condition=Condition 1 (Aorta) Ao 173/110/138 02:46 PM HR=87 bpm, EOPN=298/116 mmhg, SpO2=89.0 %, Resp=18 B/min 02:46 PM Time: 14:46 Heparin 3000 units Intravenous Given by Ron Valenzuela RN [email or web address] 02:46 PM 2.5 mm x 8 mm Emerge Monorail balloon across target lesion- successful. reused? No [email or web address] 02:47 PM respiratory called [email or web address] 02:48 PM Balloon inflated @ 14 brenda for 10 seconds [email or web address] 02:48 PM Balloon inflated @ 14 brenda for 7 seconds [email or web address] 02:49 PM Balloon catheter removed intact. [email or web address] 02:50 PM 2.5mm x 16mm Synergy drug-eluting stent across target lesion- successful Lot #[id number] [email or web address] 02:51 PM HR=84 bpm, NOSC=589/112 mmhg, SpO2=94.0 %, Resp=39 B/min 02:51 PM Time: 14:51 Oxygen on at 10 L/min per simple face mask by Qi Ball RN [email or web address] 02:52 PM Stent deployed @ 18 brenda for 26 seconds [email or web address] 02:53 PM Stent delivery system removed intact. [email or web address] 02:53 PM Time: 14:53 Oxygen on at 15 L/min per 100% non rebreather mask by Qi Ball RN [email or web address] 02:54 PM 2.5 mm x 12mm NC Emerge balloon across target lesion- successful. reused? No [email or web address] 02:55 PM Balloon inflated @ 20 brenda for 16 seconds [email or web address] 02:55 PM Balloon inflated @ 20 brenda for 14 seconds [email or web address] 02:56 PM HR=82 bpm, EGFK=340/109 mmhg, SpO2=97.0 %, Resp=40 B/min 02:56 PM Balloon catheter removed intact. [email or web address] 02:57 PM wire removed [email or web address] 02:57 PM guide removed [email or web address] 02:58 PM 5Fr Pigtail catheter inserted over the wire [facility] [email or web address] 02:58 PM wire removed [email or web address] 02:58 PM Catheter selectively placed in left ventricle [email or web address] 02:58 PM Recorded Pressure: LV, HR=80, Condition=Condition 1 (Left Ventricle) LV 163/0/144 02:58 PM Bolus angiogram of left Ventricle complete: 10 ml/sec for a total of 25 mls [email or web address] 02:59 PM Recorded Pressure: LV, Ao, HR=80, Condition=Condition 1 (Left Ventricle) LV 162/1/135, (Aorta) Ao 162/82/116 02:59 PM Bolus angiogram of right Femoral complete: 2 ml/sec for a total of 4 mls [email or web address] 03:01 PM HR=81 bpm, ZLPZ=805/93 mmhg, SpO2=97.0 %, Resp=26 B/min 03:01 PM Lesion found in Mid RCA. Pre Stenosis: 100 Pre TRA Flow: 3: Complete and Brisk Flow/Perfusion [email or web address] 03:01 PM Lesion found in LMCA. Pre Stenosis: 99 Pre TRA Flow: [email or web address] 03:02 PM Lesion found in Proximal LAD. Pre Stenosis: 100 Pre TRA Flow: [email or web address] 03:02 PM Lesion found in Proximal Circumflex. Pre Stenosis: 100 Pre TRA Flow: [email or web address] 03:03 PM Coronary Dominance: right [email or web address] 03:03 PM Left Main Coronary Artery with 99% stenosis [email or web address] 03:03 PM Proximal Left Anterior Descending Coronary Artery with 100% stenosis. If graft is supplying this territory, 0 % stenosis. [email or web address] 03:04 PM Mid/Distal Left Anterior Descending Coronary Artery and diagonal branches with 0% stenosis. If graft is supplying this area, 0 % stenosis [email or web address] 03:04 PM Circumflex, Obtuse Marginal, Left Posterior Descending, and Left Posterolateral Coronary Arteries with 100 % stenosis. If graft is supplying this area, 0 % stenosis [email or web address] 03:04 PM Right Coronary, Right Posterior Descending Arteries with Right Posterolateral and Acute Marginal branches with 100 % stenosis. If graft is supplying this area, 0 % stenosis [email or web address] 03:04 PM Ramus with 0% stenosis. If graft is supplying this area, 0 % stenosis [email or web address] 03:04 PM Procedure completed at 15:04 [email or web address] 03:04 PM At 15:04 the ACT was 215 seconds. [email or web address] 03:05 PM Sign out completed: Radiation Dose 898.99 mGy Fluoro Time: 10.3 Isovue 370 - 200ml contrast 130 ml given by Steffen Collins MD, FACC. Complications: NoneCardiac Rehab Consult needed: YesConfirmed administered medications: Yes [email or web address] 03:05 PM Isovue 370 - 200ml,1 Bottle(s) used. [email or web address] 03:05 PM Sheath left in place to be pulled on floor/holding area [email or web address] 03:05 PM Post ECG NSR [email or web address] 03:05 PM Post Blood Pressure 147/93 [email or web address] 03:05 PM 15:05 Post Pulses Bilateral DP \\T\\ PT 2+ [email or web address] 03:06 PM Information taught Cardiac Cath and PCI [email or web address] 03:06 PM Education needs Procedure, Plan of Care, and Responsibilities of Patient in Care [email or web address] 03:06 PM Learning barriers :None [email or web address] 03:06 PM Education Methods Verbal [email or web address] 03:06 PM Education evaluation Able to repeat information [email or web address] 03:06 PM Site status No bleeding/hematoma - Rt Groin as reported by Perri Grimaldo RT (R) at 15:06 [email or web address] 03:06 PM Opsite applied [email or web address] 03:06 PM Plavix, Effient or Brilinta given No [email or web address] 03:06 PM Delay to floor No [email or web address] 03:06 PM Patient out of room: 15:06 [email or web address] 03:07 PM Family placed in consult room. [email or web address] 03:07 PM Complications: None [email or web address] 03:07 PM Fluoro Time: 10.3 [email or web address] 03:08 PM Isovue 370 - 200ml contrast 130 ml given by Steffen Collins MD, FACC. [email or web address] 03:08 PM Radiation Dose 898.99 mGy [email or web address] 03:08 PM Time: 15:08 Oxygen on at 6 L/min per nasal cannula by Qi Ball RN [email or web address] 03:22 PM Time: 15:22 Oxygen on at 4 L/min per nasal cannula by Qi Ball RN [email or web address] 03:37 PM Report given to Karla CONNELLY Pt taken to Room #13. 15:37 [email or web address] Complications Complication None Hemodynamics Pressures Site Systolic/A Wave Diastolic/V Wave Mean AO 121 73 95 AO 125 76 99 AO 100 62 80 AO 159 106 131 AO 173 110 138 LV 163 0 144 LV 162 1 135 AO 162 82 116 Post Procedure Information Blood Pressure: 147/93 mmHg Rhythm: NSR Post procedural instructions were given Site Checks Time Location Status Staff Sheath In? Note 03:06 PM Rt Groin No bleeding/hematoma Perri Grimaldo RT (R) Yes 03:22 PM Rt Groin No bleeding/ No Hematoma Qi Ball RN Yes 03:31 PM Rt Groin No bleeding/ No Hematoma Ron Valenzuela RN Pulses Time Site Pre-Procedure Post-Procedure Note Bilateral DP \\T\\ PT 2+ Bilateral radial 2+ 3:05:00 PM Bilateral DP \\T\\ PT 2+ 09/27/2016 3:22:00 PM Bilateral DP \\T\\ PT 2+ 09/27/2016 3:32:00 PM Bilateral DP \\T\\ PT 1+ Updated by Awa Dos Santos RT (R) on 09/27/2016 3:37:35 PM electronically signed on 09/27/2016 3:39:45 PM with status of Final
--- NOTE | 2016-09-27 15:46 | Electrocardiograph Report ---
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
--- NOTE | 2016-09-27 15:46 | Electrocardiograph Report ---
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
--- NOTE | 2016-09-27 15:53 | Invasive Diagnostic Lab ---
Name: Sagar Blake Date of Study: 09/27/2016 Date: 1955 Ht: 182.9 cm /72.0 in Medical Record#: [id number] Age: 60 Wt: 84.1 kg / 185.41 lb Account/Order#: [id number] Gender: Male BSA: 2.06 Order #: [id number] Fluoro Dose: 899 mGy BMI: 25.14 Procedure Physician: Steffen Collins MD, [facility] Referring MD: Isabelle Redman Referring MD: Procedures Performed: LEFT HEART CATH W/ GRAFTS PCI of Acute CT Indications: Non-Stemi, ongoing chest pain on NTG drip Impressions: There is severe three vessel coronary artery disease. The left ventricle is normal and has normal contractility EF 50% patent bypass grafts with successful PCI of SVG PDA for culprit for NSTEMI Recommendations: Optimal medical therapy of patient's disease. Aggressive risk factor modification. History/Risk Factors: COPD CAD GERD CP Hypertension Dyslipidemia CHF Procedure Access obtained in the right Femoral artery by percutaneous puncture Patient had successful PTCA/Drug-Eluting Stent placement in the SVG PDA. Complications: None Contrast: Isovue 130ml Hemodynamics: Pressures Site Systolic/ A Wave Diastolic/ V Wave End Diastolic/ Mean HR AO 121 73 95 66 AO 125 76 99 69 AO 100 62 80 70 AO 159 106 131 80 AO 173 110 138 90 LV 163 0 144 80 LV 162 1 135 79 AO 162 82 116 82 LV Ventriculography Ejection Method: LV Gram Ejection Fraction: 50% Wall Motion: CLINE Anterobasal Normal Anterolateral Normal Apical: Normal Inferoapical Normal Inferobasal Normal Coronary Dominance: right Lesion Findings/Interventions * Left Main Coronary Artery There is a 99% stenosis in the LMCA. * Left Anterior Descending There is a 100% stenosis in the Proximal LAD. * Circumflex There is a 95% stenosis in the Proximal Circumflex. * Right Coronary Artery There is a 100% stenosis in the Mid RCA. The lesion has a TRA flow of 0. There is a 16 mm long, 90-95% stenosis in the SVG to Right PDA. Initial TRA flow 2. An intervention was performed on the SVG to Right PDA with a final stenosis of 0%. There were no lesion complications. The final TRA flow was 3. Additional Findings: Grafts * The saphenous vein graft to the Right PDA has a 90-95% stenosis in the body of graft. TRA 2 flow that improved to TRA 3 after PCI. No complications. * The saphenous vein graft to the proximal 1st Marginal has a 60% in stent restenosis in the proximal anastomosis. * The saphenous vein graft to the distal 1st Marginal has a 95% in stent restenosis in the distal anastomosis, unchanged from previous [facility]. Small vessel * The saphenous vein graft to the LAD is patent. TRA flow is 3 . Updated by RT Priyanka (R) on 09/27/2016 3:23:48 PM Steffen Collins MD, FACC electronically signed on 09/27/2016 3:49:01 PM with status of Final
--- NOTE | 2016-09-27 17:05 | Invasive Diagnostic Lab Proc ---
Name: Sagar Blake Date of Study: 09/27/2016 Date: 1955 Ht: 72.0in Medical Record#: [id number] Age: 60 Wt: 185.41lb Gender: Male BSA: 2.06 Order #: [id number] BMI: 25.14 Physicians Procedure Physician: Steffen Collins MD, FACC Referring MD: Isabelle Redman, MILES Referring MD: Staff Name Position Time In Barbara Dee RT (R) Monitor 02:11 PM RePerri lyle RT (R) Scrub 02:12 PM Ron Valenzuela RN Environmental Restoration Planner 02:12 PM Indications Indication Non-Stemi Procedures Performed Procedure L HRT ART/GRFT ANGIO PRQ CARD REVASC W[place] 1 VSL Pre-Procedure Checklist Informed consent is complete signed and on chart. H\\T\\P is on chart. ID band is on and ID verified with patient. Patient NPO for procedure The procedure was described for the patient and questions were answered. Blood Pressure: 121/76 ECG is on chart. Plan of Care Patient will tolerate the procedure without complications. Adequate level of comfort will be maintained. Hemodynamics will remain stable Patient will recover from procedure without complications. Respiratory function will be maintained. Cardiac rhythm will remain stable. Patient temperature will be maintained. Patient and/or family have verbalized understanding of the procedure. Patient Education Chief Complaint/Reason for Test: Cardiac Cath Developmental Category: Adult (18-64 years) Developmentally Appropriate for Age: Yes Learning Barriers: None Education Needs: Procedure Education Method: Verbal Information Taught: Cardiac Cath Educational Evaluation: Able to repeat information Intravenous Access Time IV Size Location DC'd Fluid/Drip Rate Units RN 01:36 PM 18g 1 1/4" Peripheral-Lock On Arrival 0.9NaCl 25 ml/hr Allergies No Known Allergies Vital Signs Time BP (mmHg) HR (bpm) O2 Sat. RR (bpm) LOC 121 / 76 55 97 % 19 5 = Fully awake and oriented or at pre-proc level 02:13 PM / % 4 = Oriented but drowsy 02:13 PM / % 4 = Oriented but drowsy 02:11 PM 142 / 75 61 97 % 22 02:15 PM 136 / 78 66 95 % 18 02:20 PM 129 / 75 64 94 % 20 02:26 PM 134 / 68 65 93 % 26 02:31 PM 150 / 96 70 93 % 17 02:36 PM 172 / 141 81 94 % 10 02:41 PM 176 / 109 87 94 % 8 02:46 PM 167 / 116 87 89 % 18 02:51 PM 173 / 112 84 94 % 39 02:56 PM 156 / 109 82 97 % 18 03:01 PM 147 / 93 81 97 % 26 03:23 PM 158 / 96 75 96 % 20 4 = Oriented but drowsy 03:32 PM 160 / 96 71 96 % 16 4 = Oriented but drowsy 03:59 PM 115 / 77 71 97 % 21 4 = Oriented but drowsy 04:56 PM 130 / 86 68 98 % 23 4 = Oriented but drowsy Procedural Medications Time Medication Dose Units Method Given By 02:12 PM Oxygen 2 L/min nasal cannula Ron Valenzuela RN 02:12 PM Versed 2 mg Intravenous [place], Ron RN 02:12 PM Fentanyl 50 mcg Intravenous [place], Ron RN 02:20 PM Versed 1 mg Intravenous [place], Ron RN 02:20 PM Fentanyl 25 mcg Intravenous [place], Ron RN 02:22 PM Lidocaine 2% 20 ml Subcutaneous Steffen Collins MD, FACC 02:32 PM Versed 1 mg Intravenous [place], Ron RN 02:33 PM Fentanyl 50 mcg Intravenous [place], Ron RN 02:36 PM Nitroglycerin 15 mcg/min Intravenous [place], Ron RN 02:39 PM Versed 2 mg Intravenous [place], Ron RN 02:39 PM Fentanyl 50 mcg Intravenous [place], Ron RN 02:46 PM Heparin 3000 units Intravenous [place], Ron RN 02:51 PM Oxygen 10 L/min simple face mask Qi Ball RN 02:53 PM Oxygen 15 L/min 100% non rebreather mask Qi Ball RN 03:08 PM Oxygen 6 L/min nasal cannula Qi Ball RN 03:22 PM Oxygen 4 L/min nasal cannula Qi Ball RN 02:40 PM Benadryl 50 mg Intravenous Henthornstephany, Ron CONNELLY ASA Classification: CLASS II- Mild systemic disease (i.e. well-controlled diabetes, hypertension, asthma, cigarette smoking) Daniel Score Preprocedure Postprocedure Activity 2- Moves 4 extremities sustained head lift Activity 2- Moves 4 extremities sustained head lift Circulation 2- SBP +/= 20 points of pre-anesthetic level Circulation 2- SBP +/= 20 points of pre-anesthetic level Consciousness 2- Awake and alert oriented x 3 Consciousness 2- Awake and alert oriented x 3 O2 Saturation 2- Able to maintain O2 satruation of 92% on room air O2 Saturation 2- Able to maintain O2 satruation of 92% on room air Respiratory 2- Able to deep breathe and cough well Respiratory 2- Able to deep breathe and cough well Total Score 10 Total Score 10 Contrast Agent: Isovue Diagnostic Contrast: 130 ml Total Contrast: 130 ml Fluoro Dose: 899 mGy Activated Clotting Time Time Seconds to Clot Procedure Log Time Note Enter By 02:10 PM Vitals capture started with the following parameters, Patient=Adult, Interval=5 min, Initial Zzdxglsi=361 mmHg, Deflation Rate=5 mmHg, Cuff placed on Left Arm 02:10 PM CathStat 02:11 PM HR=61 bpm, EFMX=224/75 mmhg, SpO2=97.0 %, Resp=22 B/min, Comment=NSR 02:11 PM Pt arrived to [facility] slabs 2 at 14:11 [email or web address] 02:11 PM Barbara Dee RT (R) Position: Monitor Time in: 14:11 [email or web address] 02:12 PM Perri Grimaldo RT (R) Position: Scrub Time in: 14:12 [email or web address] 02:12 PM Ron Valenzuela RN Position: Environmental Restoration Planner Time in: 14:12 [email or web address] 02:12 PM Patient charges- Angio tray pack, Navilyst 3mm J, Pulse Oximetry and ACIST tubing and transducer [email or web address] 02:12 PM Case Delayed No [email or web address] 02:12 PM Hair removed from procedure site in holding area using clippers. Bilateral groin prepped with Chloraprep by Barbara Dee RT (R), safety strap applied then patient was draped. Skin intact. [email or web address] 02:12 PM Physician arrived 14:12 [email or web address] 02:12 PM ASA Class CLASS II- Mild systemic disease (i.e. well-controlled diabetes, hypertension, asthma, cigarette smoking) [email or web address] 02:12 PM Meet and greet completed [email or web address] 02:12 PM Sign in performed according to hospital policy. [email or web address] 02:12 PM Procedure start 14:12 [email or web address] 02:12 PM Time: 14:12 Oxygen on at 2 L/min per nasal cannula by Ron Valenzuela RN [email or web address] 02:12 PM Time: 14:12 Versed 2 mg Intravenous Given by Ron Valenzuela RN [email or web address] 02:12 PM Time: 14:12 Fentanyl 50 mcg Intravenous Given by Ron Valenzuela RN [email or web address] 02:13 PM Time: 14:13 Patient comfortable and pain free: Yes [email or web address] 02:13 PM Time: 14:13LOC: 4 = Oriented but drowsy [email or web address] 02:15 PM HR=66 bpm, UBRU=170/78 mmhg, SpO2=95.0 %, Resp=18 B/min, Comment=NSR 02:20 PM [ Start or Stop Vital ] 02:20 PM Time: 14:20 Versed 1 mg Intravenous Given by Ron Valenzuela RN [email or web address] 02:20 PM Time: 14:20 Fentanyl 25 mcg Intravenous Given by Ron Valenzuela RN [email or web address] 02:20 PM HR=64 bpm, HXGB=299/75 mmhg, SpO2=94.0 %, Resp=20 B/min, Comment=NSR 02:21 PM Time out performed according to hospital policy [email or web address] 02:22 PM Recorded ECG: HR=67 Condition=Condition 1 02:22 PM Pressure channel 1 zeroed. 02:23 PM Time: 14:22 20 ml Lidocaine 2% to right groin Subcutaneous Given by Ste[facility] Collins MD, [email or web address] 02[facility] PM Access obtained by percutaneous puncture. 6Fr 10cm Terumo [place] sheath placed in right Femoral artery. [id number] [email or web address] 02:24 PM 0.035 145cm Navilyst 3mmJ wire [id number] [email or web address] 02:24 PM 5Fr FR 4 catheter inserted over the wire [facility] [email or web address] 02:25 PM SVG to the RPDA angio performed in multiple views. [email or web address] 02:25 PM Recorded Pressure: Ao, HR=66, Condition=Condition 1 (Aorta) Ao 121/73/95 02:26 PM HR=65 bpm, OFBE=554/68 mmhg, SpO2=93.0 %, Resp=26 B/min, Comment=NSR 02:27 PM Recorded Pressure: Ao, HR=69, Condition=Condition 1 (Aorta) Ao 125/76/99 02:28 PM Time: 14:13LOC: 4 = Oriented but drowsy [email or web address] 02:28 PM Time: 14:13 Patient comfortable and pain free: Yes [email or web address] 02:29 PM Recorded Pressure: Ao, HR=70, Condition=Condition 1 (Aorta) Ao 100/62/80 02:31 PM HR=70 bpm, GZYU=697/96 mmhg, SpO2=93.0 %, Resp=17 B/min, Comment=NSR 02:32 PM Catheter removed [email or web address] 02:32 PM 5Fr LCB catheter inserted over the wire [id number] [email or web address] 02:32 PM SVG to the 1st OM angio performed in multiple views. [email or web address] 02:33 PM Time: 14:32 Versed 1 mg Intravenous Given by Ron Valenzuela RN [email or web address] 02:33 PM Time: 14:33 Fentanyl 50 mcg Intravenous Given by Ron Valenzuela RN [email or web address] 02:33 PM SVG to the LAD angio performed in multiple views. [email or web address] 02:35 PM Catheter removed [email or web address] 02:36 PM 5Fr FL 4 catheter inserted over the wire DNC [email or web address] 02:36 PM HR=81 bpm, VHSZ=722/141 mmhg, SpO2=94.0 %, Resp=10 B/min, Comment=NSR 02:37 PM Time: 14:36 Nitroglycerin 15 mcg/min Intravenous Given by Ron Valenzuela RN Willson pump [email or web address] 02:37 PM Recorded Pressure: Ao, HR=80, Condition=Condition 1 (Aorta) Ao 159/106/131 02:38 PM Catheter removed [email or web address] 02:38 PM 5Fr MPA catheter inserted over the wire [id number] [email or web address] 02:39 PM Time: 14:39 Versed 2 mg Intravenous Given by Ron Valenzuela RN [email or web address] 02:39 PM Time: 14:39 Fentanyl 50 mcg Intravenous Given by Ron Valenzuela RN [email or web address] 02:40 PM Time: 14:40 Benadryl 50 mg Intravenous Given by Ron Valenzuela RN [email or web address] 02:41 PM HR=87 bpm, TPOG=362/109 mmhg, SpO2=94.0 %, Resp=8 B/min, Comment=NSR 02:42 PM Catheter removed [email or web address] 02:43 PM 6Fr MPA Runway guide catheter was used to cannulate the PCI vessel successfully. reused? No [email or web address] 02:43 PM .014 PT Graphix 182cm guide wire across target lesion- successful. reused? No [email or web address] 02:43 PM Inflation device was opened. [email or web address] 02:44 PM Recorded Pressure: Ao, HR=90, Condition=Condition 1 (Aorta) Ao 173/110/138 02:46 PM HR=87 bpm, KYDT=501/116 mmhg, SpO2=89.0 %, Resp=18 B/min 02:46 PM Time: 14:46 Heparin 3000 units Intravenous Given by Ron Valenzuela RN [email or web address] 02:46 PM 2.5 mm x 8 mm Emerge Monorail balloon across target lesion- successful. reused? No [email or web address] 02:47 PM respiratory called [email or web address] 02:48 PM Balloon inflated @ 14 brenda for 10 seconds [email or web address] 02:48 PM Balloon inflated @ 14 brenda for 7 seconds [email or web address] 02:49 PM Balloon catheter removed intact. [email or web address] 02:50 PM 2.5mm x 16mm Synergy drug-eluting stent across target lesion- successful Lot #[id number] [email or web address] 02:51 PM HR=84 bpm, HFFO=950/112 mmhg, SpO2=94.0 %, Resp=39 B/min 02:51 PM Time: 14:51 Oxygen on at 10 L/min per simple face mask by Qi Ball RN [email or web address] 02:52 PM Stent deployed @ 18 brenda for 26 seconds [email or web address] 02:53 PM Stent delivery system removed intact. [email or web address] 02:53 PM Time: 14:53 Oxygen on at 15 L/min per 100% non rebreather mask by Qi Ball [email or web address] 02:54 PM 2.5 mm x 12mm NC Emerge balloon across target lesion- successful. reused? No [email or web address] 02:55 PM Balloon inflated @ 20 brenda for 16 seconds [email or web address] 02:55 PM Balloon inflated @ 20 brenda for 14 seconds [email or web address] 02:56 PM HR=82 bpm, WTHC=501/109 mmhg, SpO2=97.0 %, Resp=40 B/min 02:56 PM Balloon catheter removed intact. [email or web address] 02:57 PM wire removed [email or web address] 02:57 PM guide removed [email or web address] 02:58 PM 5Fr Pigtail catheter inserted over the wire DNC [email or web address] 02:58 PM wire removed [email or web address] 02:58 PM Catheter selectively placed in left ventricle [email or web address] 02:58 PM Recorded Pressure: LV, HR=80, Condition=Condition 1 (Left Ventricle) LV 163/0/144 02:58 PM Bolus angiogram of left Ventricle complete: 10 ml/sec for a total of 25 mls [email or web address] 02:59 PM Recorded Pressure: LV, Ao, HR=80, Condition=Condition 1 (Left Ventricle) LV 162/1/135, (Aorta) Ao 162/82/116 02:59 PM Bolus angiogram of right Femoral complete: 2 ml/sec for a total of 4 mls [email or web address] 03:01 PM HR=81 bpm, PJYZ=547/93 mmhg, SpO2=97.0 %, Resp=26 B/min 03:01 PM Lesion found in Mid RCA. Pre Stenosis: 100 Pre TRA Flow: 3: Complete and Brisk Flow/Perfusion [email or web address] 03:01 PM Lesion found in LMCA. Pre Stenosis: 99 Pre TRA Flow: [email or web address] 03:02 PM Lesion found in Proximal LAD. Pre Stenosis: 100 Pre TRA Flow: [email or web address] 03:02 PM Lesion found in Proximal Circumflex. Pre Stenosis: 100 Pre TRA Flow: [email or web address] 03:03 PM Coronary Dominance: right [email or web address] 03:03 PM Left Main Coronary Artery with 99% stenosis [email or web address] 03:03 PM Proximal Left Anterior Descending Coronary Artery with 100% stenosis. If graft is supplying this territory, 0 % stenosis. [email or web address] 03:04 PM Mid/Distal Left Anterior Descending Coronary Artery and diagonal branches with 0% stenosis. If graft is supplying this area, 0 % stenosis [email or web address] 03:04 PM Circumflex, Obtuse Marginal, Left Posterior Descending, and Left Posterolateral Coronary Arteries with 100 % stenosis. If graft is supplying this area, 0 % stenosis [email or web address] 03:04 PM Right Coronary, Right Posterior Descending Arteries with Right Posterolateral and Acute Marginal branches with 100 % stenosis. If graft is supplying this area, 0 % stenosis [email or web address] 03:04 PM Ramus with 0% stenosis. If graft is supplying this area, 0 % stenosis [email or web address] 03:04 PM Procedure completed at 15:04 [email or web address] 03:04 PM At 15:04 the ACT was 215 seconds. [email or web address] 03:05 PM Sign out completed: Radiation Dose 898.99 mGy Fluoro Time: 10.3 Isovue 370 - 200ml contrast 130 ml given by Steffen Collins MD, FACC. Complications: NoneCardiac Rehab Consult needed: YesConfirmed administered medications: Yes [email or web address] 03:05 PM Isovue 370 - 200ml,1 Bottle(s) used. [email or web address] 03:05 PM Sheath left in place to be pulled on floor/holding area [email or web address] 03:05 PM Post ECG NSR [email or web address] 03:05 PM Post Blood Pressure 147/93 [email or web address] 03:05 PM 15:05 Post Pulses Bilateral DP \\T\\ PT 2+ [email or web address] 03:06 PM Information taught Cardiac Cath and PCI [email or web address] 03:06 PM Education needs Procedure, Plan of Care, and Responsibilities of Patient in Care [email or web address] 03:06 PM Learning barriers :None [email or web address] 03:06 PM Education Methods Verbal [email or web address] 03:06 PM Education evaluation Able to repeat information [email or web address] 03:06 PM Site status No bleeding/hematoma - Rt Groin as reported by Perri Grimaldo RT (R) at 15:06 [email or web address] 03:06 PM Opsite applied [email or web address] 03:06 PM Plavix, Effient or Brilinta given No [email or web address] 03:06 PM Delay to floor No [email or web address] 03:06 PM Patient out of room: 15:06 [email or web address] 03:07 PM Family placed in consult room. [email or web address] 03:07 PM Complications: None [email or web address] 03:07 PM Fluoro Time: 10.3 [email or web address] 03:08 PM Isovue 370 - 200ml contrast 130 ml given by Steffen Collins MD, FACC. [email or web address] 03:08 PM Radiation Dose 898.99 mGy [email or web address] 03:08 PM Time: 15:08 Oxygen on at 6 L/min per nasal cannula by Qi Ball RN [email or web address] 03:22 PM Time: 15:22 Oxygen on at 4 L/min per nasal cannula by Qi Ball RN [email or web address] 03:37 PM Report given to Karla CONNELLY Pt taken to Room #13. 15:37 [email or web address] 04:49 PM Arterial sheath pulled using manual compression and for 13 minutes by Awa Dos Santos RT jil Complications Complication None Hemodynamics Pressures Site Systolic/A Wave Diastolic/V Wave Mean AO 121 73 95 AO 125 76 99 AO 100 62 80 AO 159 106 131 AO 173 110 138 LV 163 0 144 LV 162 1 135 AO 162 82 116 Post Procedure Information Blood Pressure: 147/93 mmHg Rhythm: NSR Post procedural instructions were given Site Checks Time Location Status Staff Sheath In? Note 03:06 PM Rt Groin No bleeding/hematoma Perri Grimaldo RT (R) Yes 03:22 PM Rt Groin No bleeding/ No Hematoma Qi Ball RN Yes 03:31 PM Rt Groin No bleeding/ No Hematoma Ron Valenzuela RN 03:59 PM Rt Groin No bleeding/ No Hematoma Awa Dos Santos 04:56 PM Rt Groin No bleeding/ No Hematoma Awa Dos Santos RT Pulses Time Site Pre-Procedure Post-Procedure Note Bilateral DP \\T\\ PT 2+ Bilateral radial 2+ 3:05:00 PM Bilateral DP \\T\\ PT 2+ 09/27/2016 3:22:00 PM Bilateral DP \\T\\ PT 2+ 09/27/2016 3:32:00 PM Bilateral DP \\T\\ PT 1+ 09/27/2016 3:59:00 PM Bilateral DP \\T\\ PT 1+ 09/27/2016 4:56:00 PM Bilateral DP \\T\\ PT 1+ Updated by Awa Dos Santos RT (R) on 09/27/2016 4:59:50 PM electronically signed on 09/27/2016 5:00:29 PM with status of Final
--- NOTE | 2016-09-27 20:45 | Internal Med Progress Note ---
Date of Encounter: 09/27/16 Time of Encounter: 10:00 - Assessment and plan (1) NSTEMI (non-ST elevated myocardial infarction) Current Visit: Yes Status: Acute Assessment and plan: Cardiology is on case. Had a catheterization and stenting today. Continue medical treatment for risk factor. Closely monitor pt. (2) DVT prophylaxis Current Visit: No Status: Acute Assessment and plan: Heparin subcutaneously (3) HTN (hypertension) Current Visit: No Status: Acute Assessment and plan: Continue home medication. BP is stable Qualifiers: Hypertension type: essential hypertension Qualified Code(s): I10 - Essential (primary) hypertension (4) Systolic CHF Current Visit: No Status: Chronic Assessment and plan: EF of 50% on catherization report. Continue beta vinay and CHANTAL inhibitor. Qualifiers: Congestive heart failure chronicity: chronic Qualified Code(s): I50.22 - Chronic systolic (congestive) heart failure - Time Spent With Patient 25 - 35 minutes - Subjective Interval history: Patient is a 60-year-old male admitted for chest pain. His past medical history is significant for CHF, COPD, CAD S/P CABG and stenting, hyperlipidemia , hypertension. Patient was seen and examined. He is on nitroglycerin drip and is still complaining 6-7 out of 10 chest pain, radiating to neck and both arm. Vitals are stable. Cardiology consult appreciated. Patient has elevated troponin and EKG change. Consider NSTEMI. Will have catheterization today. Continue closer monitoring and pain management. - Constitutional Vitals: Temp Pulse Resp BP Pulse Ox 98.3 F 68 16 139/81 93 L 09/27/16 20:17 09/27/16 20:17 09/27/16 20:17 09/27/16 20:17 09/27/16 20:17 General appearance: Present: cooperative, mild distress, pleasant, answers questions appropriately - Head Head exam: Present: atraumatic, normocephalic - Eye Eye exam: Present: PERRL, conjuntiva pink, sclera anicteric Pupils: Present: PERRL - Neck Neck exam general surgery: Present: supple, trachea midline. Absent: lymphadenopathy - Respiratory Respiratory exam: Present: CTAB. Absent: accessory muscle use, rales, rhonchi, wheezes - Cardiovascular Cardiovascular exam: Present: RRR, +S1, +S2. Absent: diastolic murmur, gallop, rubs, systolic murmur - GI/Abdominal GI/Abdominal exam: Present: normal bowel sounds, soft, no peritoneal signs. Absent: distended, tenderness - Extremities Exam Extremities exam: Present: warm, radial pulses palpable and symetrical. Absent : calf tenderness, cyanotic, pedal edema - Neurological Exam Neurological exam: Present: CN II-XII intact, oriented X3, no focal deficits. Absent: pronater drift, facial droop, speech deficit - Skin Skin exam: Present: dry, intact Internal Medicine: Result - Labs CBC & Chem 7: 09/26/16 23:49 09/27/16 05:48 Labs: BMP 09/27/16 05:48 Sodium 140 Potassium 4.1 Chloride 110 H Carbon Dioxide 24 BUN 16 Creatinine 0.91 Glucose 100 H Calcium 8.3 L Cardiac Enzymes 09/27/16 09/27/16 Range/Units 05:48 12:26 Troponin I 0.22 H* 0.26 H* (0-0.03) ng/mL - ABG Interpretation ABG results: PT/INR, D-dimer PT 11.7 Seconds (9.4-12.1) 09/26/16 23:49 Consult Discharge Plan - Plan Referrals: Isabelle Redman, ASSOCIATE ART DIRECTOR [Primary Care Provider] -
[2016-09-27] MEDS ORDERED: Isosorbide MONOnitrate (24 HR) 60 MG TAB.ER.24H PO SCH (21:00)
[2016-09-27] MEDS: *HR* OxyCODONE Immed Rel 5 MG TABLET PO PRN (22:47)
[2016-09-28 05:22] LABS: Basophils # 0.1 K/mcL (0.0-0.2); Basophils % 0.8 %; Eosinophils # 0.4 K/mcL (0.0-0.6); Eosinophils % 3.7 %; Hematocrit 42.6 % (37.5-50.1); Hemoglobin 13.8 g/dL (12.9-16.9); Immature Granulocytes % 0.3 % (0-4); Lymphocytes # 3.1 K/mcL (0.6-4.6); Lymphocytes % 30.3 %; Mean Corpuscular HGB Conc 32.4 g/dL (31.6-35.5); Mean Corpuscular Hemoglobin 28.3 pg (28.0-33.3); Mean Corpuscular Volume 87.5 fL (83.0-100.0); Monocytes # 0.9 K/mcL (0.0-1.3); Monocytes % 8.9 %; Neutrophils # 5.8 K/mcL (1.6-8.9); Platelet Count 247 K/mcL (140-400); Red Blood Count 4.87 M/mcL (4.19-5.50); Red Cell Distribution Width 14.2 % (11.5-14.5)
[2016-09-28] MEDS: Pantoprazole 40 MG VIAL IVP SCH (05:24)
[2016-09-28] MEDS: *HR* OxyCODONE Immed Rel 5 MG TABLET PO PRN (05:24)
[2016-09-28 05:47] LABS: BUN/Creatinine Ratio 16 (6-26); Blood Urea Nitrogen 13 mg/dL (8-26); Calcium 8.2 mg/dL (8.6-10.8); Carbon Dioxide 22 mEq/L (19-29); Chloride 110 mEq/L (98-109); Glucose 90 mg/dL (70-99); Osmolality,Calculated 288 (280-300); Potassium 4.1 mEq/L (3.5-4.5); Sodium 139 mEq/L (136-145); eGFR For African Americans > 60 (> 60); eGFR For Non-African Americans > 60 (> 60)
[2016-09-28] MEDS ORDERED: *HR* Heparin 5,000 UNIT/ML VIAL SQ SCH (06:00)
--- NOTE | 2016-09-28 08:31 | Cardiology Progress Note ---
Date of Encounter: 09/28/16 Time of Encounter: 08:30 Assessment and Plan (1) NSTEMI (non-ST elevated myocardial infarction) Current Visit: Yes Status: Acute Per Cardiology: Peak troponin 0.26. S/p left heart catheterization and successful PCI/DENNY of the SVG to PDA 90-95% stenosis-- culprit for NSTEMI. Patient has SVG to proximal OM1 with 60% in-stent restenosis in the proximal anastomosis, SVG to distal OM1 has 95% in-stent restenosis distal to anastomosis, unchanged from previous left heart cath (small vessel). Has patent SVG to LAD. Currently chest pain-free. Discussed and reviewed with Dr. Sagar Suarez, cardiology signoff, re- consult as needed, follow-up as outpatient scheduled. Post cath instructions provided and all questions answered. (2) CAD (coronary artery disease) Current Visit: No Status: Chronic Per Cardiology: Hx CABG 4 in 2003-- No LAI graft noted-- cath report reviewed with Dr. Collins and no LAI was used for CABG. On aspirin, Plavix, statin, BB, ACEI, long- acting nitrate, and max dose of Ranexa. Qualifiers: Coronary Disease-Associated Artery/Lesion type: [place] artery [place] vs. transplanted heart: [place] heart Associated angina: with stable angina Qualified Code(s): I25.118 - Atherosclerotic heart disease of [place] coronary artery with other forms of angina pectoris (3) Encounter for loop recorder check Current Visit: Yes Status: Acute Per Cardiology: Had suspected TIA April 2016. Now has loop recorder inserted July 2016. Patient appears to be asymptomatic with no concerns of A. fib. Telemetry reviewed and shows sinus rhythm with no arrhythmias noted. Loop interrogation pending this am-- will f/u as outpatient. (4) Nicotine addiction Current Visit: Yes Status: Chronic Per Cardiology: I provided at least 3-5 minutes of smoking cessation counseling. Patient reports he wants to quit and is willing to utilize patch at home. Qualifiers: Nicotine product type: cigarettes Qualified Code(s): F17.219 - Nicotine dependence, cigarettes, with unspecified nicotine-induced disorders Discussion w patient/family: The assessment and plan as outlined above was discussed with the patient who expressed understanding and agreement. All questions were answered. Thank you for involving us in the care of your patient. Please call with any questions. Subjective Principal diagnosis: NSTEMI Interval history: Patient denies any chest pain, shortness of breath, palpitations. Denies any concerns with his right groin site from catheterization. Objective Vital Signs, Last 4 Hours Temp Pulse Resp BP Pulse Ox 09/28/16 07:38 98.1 F 65 16 121/64 94 L General: Conversant, No Apparent Distress HEENT: Atraumatic, Normocephaly Cardiac: Reg Rate and Rhythm, Normal S1 and S2, No Murmur Lungs: Normal Breath Sounds, No Wheeze, Rales, Rhonchi Neuro: Alert and responsive, No focal deficits noted Skin: No rashes noted on visualized skin, Other (Right groin site dry and intact , no hematoma, no ecchymosis, no active bleeding, right dorsalis pedis and posterior tibial pulses 2+ palpable) Extremities: No Edema Results 09/28/16 05:10 09/28/16 05:10 Lab Results Active Medications Amlodipine Besylate (Norvasc) 2.5 mg PO DAILY TARAN PRN Reason: Protocol Stop: 03/30/17 09:01 Aspirin (Aspirin) 325 mg PO DAILY TARAN Stop: 03/29/17 09:01 Last Admin: 09/27/16 08:04 Dose: 325 mg Atorvastatin Calcium (Lipitor) 40 mg PO HS TARAN Stop: 03/29/17 21:01 Last Admin: 09/27/16 20:06 Dose: 40 mg Carvedilol (Coreg) 12.5 mg PO HS TARAN Stop: 03/29/17 21:01 Last Admin: 09/27/16 20:06 Dose: 12.5 mg Clonazepam (Klonopin) 0.5 mg PO BID TARAN Stop: 03/29/17 09:01 Last Admin: 09/27/16 20:06 Dose: 0.5 mg Clopidogrel Bisulfate (Plavix) 75 mg PO DAILY TARAN Stop: 03/29/17 09:01 Last Admin: 09/27/16 08:04 Dose: 75 mg Hydralazine HCl (Hydralazine) 10 mg IVP Q6HR PRN PRN Reason: Hypertension Stop: 03/29/17 15:17 Sodium Chloride (0.9 % Sodium Chloride) 1,000 mls @ 50 mls/hr IVC .Q20H TARAN Stop: 03/29/17 01:46 Last Admin: 09/27/16 22:47 Dose: 50 mls/hr Isosorbide Mononitrate (Imdur) 120 mg PO HS [facility] Stop: 03/29/17 21:01 Last Admin: 09/27/16 20:06 Dose: 120 mg Lisinopril (Zestril) 20 mg PO DAILY TARAN PRN Reason: Protocol Stop: 03/29/17 09:01 Last Admin: 09/27/16 08:00 Dose: Not Given Morphine Sulfate (Morphine Sulfate) 2 mg IVP Q3H PRN PRN Reason: Severe Pain (7-10) Stop: 03/29/17 01:45 Last Admin: 09/27/16 20:07 Dose: 2 mg Naloxone HCl (Narcan) 0.4 mg IVP Q2MIN PRN PRN Reason: Opioid Reversal Stop: 03/29/17 01:45 Nicotine (Nicoderm) 21 mg TD DAILY TARAN PRN Reason: Protocol Stop: 03/29/17 09:01 Last Admin: 09/27/16 08:03 Dose: 21 mg Nitroglycerin (Nitroglycerin) 0.4 mg SL Q5MIN PRN PRN Reason: Chest Pain Stop: 03/28/17 23:48 Last Admin: 09/27/16 00:07 Dose: 0.4 mg Omeprazole (Prilosec) 20 mg PO DAILY [facility] Stop: 03/29/17 09:01 Last Admin: 09/27/16 08:04 Dose: 20 mg Ondansetron HCl (Zofran) 4 mg IVP Q6HR PRN PRN Reason: Nausea And Vomiting Stop: 03/29/17 01:45 Oxycodone HCl (Roxicodone) 10 mg PO Q4H PRN PRN Reason: Pain Stop: 03/29/17 06:53 Last Admin: 09/28/16 05:24 Dose: 10 mg Pantoprazole Sodium (Protonix) 40 mg IVP 0630 [facility] Stop: 03/29/17 06:31 Last Admin: 09/28/16 05:24 Dose: 40 mg Quetiapine Fumarate (Seroquel) 50 mg PO BID [facility] Stop: 03/29/17 09:01 Last Admin: 09/27/16 20:06 Dose: Not Given Ranolazine (Ranexa) 1,000 mg PO BID [facility] Stop: 03/29/17 09:01 Last Admin: 09/27/16 20:06 Dose: 1,000 mg Venlafaxine HCl (Effexor Xr) 150 mg PO DAILY TARAN PRN Reason: Protocol Stop: 03/29/17 09:01 Last Admin: 09/27/16 08:04 Dose: 150 mg - Imaging and Cardiology Cardiac cath: report reviewed - EKG Interpretation EKG results cardiology: other (Sinus rhythm on telemetry) Consult Discharge Plan - Plan Referrals: Isabelle Redman, BIOINFORMATICIST [Primary Care Provider] -
[2016-09-28] MEDS ORDERED: Aspirin Enteric Coated 81 MG Tablet PO SCH (08:36)
[2016-09-28] MEDS ORDERED: amLODIPine 5 MG TABLET PO SCH (09:00)
[2016-09-28] MEDS: Nicotine 21 MG PATCH.TD24 TD SCH (09:08)
[2016-09-28] MEDS: Ranolazine 500 MG TAB.ER.12H PO SCH (09:08)
[2016-09-28] MEDS: Aspirin 325 MG TABLET PO SCH (09:09)
[2016-09-28] MEDS: Lisinopril 20 MG TABLET PO SCH (09:09)
[2016-09-28] MEDS: clonazePAM 0.5 MG TABLET PO SCH (09:09)
[2016-09-28] MEDS: Venlafaxine XR (24 HR) 150 MG CAP.ER.24H PO SCH (09:10)
[2016-09-28 10:53] VITALS: BP 153/93
--- NOTE | 2016-09-28 11:36 | Discharge Summary ---
Date of Encounter: 09/28/16 Time of Encounter: 11:33 - Discharge Diagnosis (1) NSTEMI (non-ST elevated myocardial infarction) Priority: Primary Status: Acute (2) Nicotine addiction Priority: Secondary Status: Chronic Qualifiers: Nicotine product type: cigarettes Substance use status: uncomplicated Qualified Code(s): F17.210 - Nicotine dependence, cigarettes, uncomplicated (3) HTN (hypertension) Priority: Secondary Status: Chronic Qualifiers: Hypertension type: essential hypertension Qualified Code(s): I10 - Essential (primary) hypertension (4) CAD (coronary artery disease) Priority: Secondary Status: Chronic Qualifiers: Coronary Disease-Associated Artery/Lesion type: bypass graft [place] vs. transplanted heart: [place] heart Associated angina: with stable angina Qualified Code(s): I25.708 - Atherosclerosis of coronary artery bypass graft(s) , unspecified, with other forms of angina pectoris (5) Systolic CHF Priority: Secondary Status: Chronic Qualifiers: Congestive heart failure chronicity: chronic Qualified Code(s): I50.22 - Chronic systolic (congestive) heart failure - Discharge Medications Prescriptions: Amlodipine [Norvasc] 2.5 mg PO DAILY #30 tablet Nicotine Patch [Nicoderm] 21 mg TD DAILY #30 patch.td24 Home Medications: Atorvastatin [Lipitor] 40 mg PO HS 05/29/16 [History] Carvedilol 12.5 mg PO BID 05/29/16 [History] Clopidogrel [Plavix] 75 mg PO DAILY 05/29/16 [History] Isosorbide MONOnitrate [Isosorbide Mononitrate ER] 120 mg PO HS 05/29/16 [ History] Lisinopril [Zestril] 20 mg PO DAILY 05/29/16 [History] Nitroglycerin [Nitrostat] 0.4 mg SL Q5M PRN 05/29/16 [History] Oxycodone HCl 10 mg PO Q2H PRN 05/29/16 [History] Pantoprazole Sodium [Protonix] 40 mg PO DAILY 05/29/16 [History] Quetiapine Fumarate [Seroquel Xr] 50 mg PO BID 05/29/16 [History] Ranolazine [Ranexa] 1,000 mg PO BID 05/29/16 [History] Venlafaxine HCl [Venlafaxine HCl ER] 150 mg PO DAILY 05/29/16 [History] Aspirin 325 mg PO DAILY 08/16/16 [History] ClonazePAM [Klonopin] 0.5 mg PO BID 09/27/16 [History] Tamsulosin [Flomax] 0.4 mg PO DAILY 09/27/16 [History] Amlodipine [Norvasc] 2.5 mg PO DAILY #30 tablet 09/28/16 [Rx] Nicotine Patch [Nicoderm] 21 mg TD DAILY #30 patch.td24 09/28/16 [Rx] Allergies/Adverse Reactions: Allergies No Known Allergies Allergy (Verified 09/27/16 09:21) Procedures/tests Complete & Pending: Procedures Performed prior 72 hours Category Date Time Status CL Cardiac Catheterization [CL] Routine Clerk 09/27/16 09:47 Completed ECG 12 lead ECG [ECG] AM 0600 Y 09/28/16 06:00 Ordered ECG 12 lead ECG [ECG] Routine Y 09/27/16 00:54 Completed ECG 12 lead ECG [ECG] Routine Y 09/27/16 15:14 Completed Date of admission: 09/27/16 01:00 Primary care physician: Isabelle Redman CNP Consults: 09/27/16 01:50 Consult to Cardiology [CONS] Routine Comment: Consulting Provider: Cardiology Eloina Reason for Consult: NSTEMI, h/o multiple MIs, may need C Call Completed: No 09/27/16 15:14 Consult to Cardiac Rehabilitation-Phase1 [CONS] Routine Comment: Reason for Consult: post op cath Call Completed: Yes Discharging clinician: Fabiola Ornelas Anticipated date of discharge: 09/28/16 - Patient Status Disposition: Home, Self-Care Condition: Good Functional capacity at discharge: independent ambulation Overall status at discharge: patient is back to baseline - Discharge Instructions Instructions: Myocardial Infarction (DC), How to Stop Smoking (DC) Follow Up With: Isabelle Redman CNP [Primary Care Provider] - 10/05/16 1:25 pm Jakub Shabazz DO [Partnered Physician] - (OFFICE WILL CALL PATIENT AT HOME WITH FOLLOW UP APPOINTMENT/ DUE TO OFFICE MAKES THEIR OWN APPOINTMENTS) Additional Instructions: F/up with in 2-3 weeks - Diet and Activity Activity: increase activity as tolerated Diet: low fat, low cholesterol, low salt diet Hospital course: Mr. Blake is a 60 year old male with history of chronic nicotine dependence and coronary artery disease s/p CABG was admitted with retrosternal chest pain. He was noted to have ischemic changes on EKG along with slight troponin elevation and was started on therapeutic anticoagulation, aspirin and beta vinay for non -ST elevation GA. Cardiology was consulted and patient underwent left heart catheterization and received drug-eluting stent to SVG og PDA. He is recommended to be on medical management and is being continued on aspirin, Plavix, beta vinay, statin, CHANTAL inhibitor, long-acting nitrate and Ranexa. Smoking cessation counseling was done, at least for 5 minutes and patient is motivated to quit smoking and requests for nicotine transdermal patches and a prescription is being provided for the same. Patient is otherwise medically stable for discharge with outpatient cardiology follow-up. - Time Spent with Patient Total time spent providing and/or coordinating discharge services: Greater than 30 minutes (45 min) - Constitutional Vitals: Temp Pulse Resp BP Pulse Ox 98.8 F 71 16 153/93 98 09/28/16 10:52 09/28/16 10:52 09/28/16 10:52 09/28/16 10:52 09/28/16 10:52 General appearance: Present: A&O X 3, answers questions appropriately - Respiratory Respiratory exam: Present: CTAB. Absent: accessory muscle use, rales, rhonchi, wheezes - Cardiovascular Cardiovascular exam: Present: RRR, +S1, +S2. Absent: diastolic murmur, gallop, rubs, systolic murmur
--- NOTE | 2016-09-28 15:49 | Electrocardiograph Report ---
[place] [id number] Test Date: 2016-09-27 Pat Name: Sagar Blake Department: 110 Room: 2N13 Gender: M Psychology Clinician: : 1955 Requested By: Steffen Collins Order Number: [id number] Reading MD: Harper Suarez Measurements Intervals [place] Rate: 62 P: 31 SD: 143 QRS: 10 QRSD: 107 T: 211 QT: 439 QTc: 444 Interpretive Statements SINUS RHYTHM ST DEVIATION AND MODERATE T-WAVE ABNORMALITY, CONSIDER ANTEROLATERAL ISCHEMIA ST DEVIATION AND MODERATE T-WAVE ABNORMALITY, CONSIDER INFERIOR ISCHEMIA Electronically Signed On 09-28-2016 15:48:14 EDT by Harper Suarez
== END 2016-09-28 12:38 | disposition home or self-care (01) ==
LOC: EMEROO 23:21 → 3BNU 23:21 → SUATTDRO 09-27 01:00 → 3BNU 09-27 01:35 → 2NNU 09-27 16:44
PROVIDERS: ADMIT Internal Medicine; ATTEND Internal Medicine

== ENCOUNTER 2017-06-14 19:57 | Inpatient (IN) ==
[2017-06-14] MEDS ORDERED: *HR* Heparin 5,000 UNIT/ML VIAL IVP PRN ×2 (20:03)
[2017-06-14] MEDS ORDERED: *HR* Heparin 5,000 UNIT/ML VIAL IVP ONE (20:03)
--- NOTE | 2017-06-14 20:07 | Emergency Department Note ---
Disposition Clinical Impression: NSTEMI (non-ST elevated myocardial infarction), JUAN (acute kidney injury) Disposition: Admitted As Inpatient Condition: Undetermined Referrals: NONE,PCP [Non-Partnered Physician] - Forms: ED Satisfaction Letter Time of Disposition: 21:21 Chest Pain HPI - General Chief Complaint: ED Chest Pain Stated Complaint: chest pain Time Seen by Provider: 06/14/17 19:58 Source: patient, family, EMS Mode of arrival: EMS Limitations: no limitations Vital Signs Reviewed: Yes Nursing Notes Reviewed: Yes - History of Present Illness HPI Narrative: 61-year-old male with history of DE and 5-way bypass [facility] emergency department after experiencing worsening chest pain that began yesterday. The patient states that it acutely worsened this evening. He has taken 4 nitroglycerin without relief. The patient is diaphoretic upon arrival. The patient feels very short of breath and nauseated and feels as though this was exactly like his previous DE in September 2015. The patient states he had 3 stents placed at that time. He denies any other complaints at this time. The patient states he did not think much of his chest pain yesterday has been taking nitroglycerin for it. The patient again is very diaphoretic upon arrival to the emergency department. He denies any black or bloody stools and any history of GI bleed. The patient has been taking his medications as prescribed. Pt complaint: chest pain Onset (ago): day(s) (1, worsened tonight) Duration: constant, gradually worsening Onset: during rest Pain Location: substernal, left chest Severity: severe Severity scale (1-10): 10 Quality: tightness, heaviness Pain Radiation: neck, jaw/teeth Improves with: nothing Worsens with: nothing Associated symptoms: Reports: nausea, diaphoresis, dyspnea Treatments prior to arrival chest pain: nitroglycerin - Related Data On Oral Contraceptives: No Home Medications Medication Instructions Recorded Confirmed Atorvastatin [Lipitor] 40 mg PO HS 05/29/16 09/27/16 Carvedilol 12.5 mg PO BID 05/29/16 09/27/16 Clopidogrel [Plavix] 75 mg PO DAILY 05/29/16 09/27/16 Isosorbide MONOnitrate [Isosorbide 120 mg PO HS 05/29/16 09/27/16 Mononitrate ER] Lisinopril [Zestril] 20 mg PO DAILY 05/29/16 09/27/16 Nitroglycerin [Nitrostat] 0.4 mg SL Q5M PRN 05/29/16 09/27/16 Oxycodone HCl 10 mg PO Q2H PRN 05/29/16 09/27/16 Pantoprazole Sodium [Protonix] 40 mg PO DAILY 05/29/16 09/27/16 Quetiapine Fumarate [Seroquel Xr] 50 mg PO BID 05/29/16 09/27/16 Ranolazine [Ranexa] 1,000 mg PO BID 05/29/16 09/27/16 Venlafaxine HCl [Venlafaxine HCl 150 mg PO DAILY 05/29/16 09/27/16 ER] Aspirin 325 mg PO DAILY 08/16/16 09/27/16 Tamsulosin [Flomax] 0.4 mg PO DAILY 09/27/16 09/27/16 Allergies Allergy/AdvReac Type Severity Reaction Status Date / Time No Known Allergies Allergy Verified 09/27/16 09:21 All systems ED: reviewed and negative except as stated. Constitutional: Denies: fever, chills, weakness ENT ED: Denies: congestion Cardiovascular: Reports: chest pain, dyspnea on exertion. Denies: edema, syncope Respiratory: Reports: dyspnea. Denies: cough, wheezes Gastrointestinal: Reports: nausea. Denies: abdominal pain, vomiting, diarrhea, constipation Genitourinary: Denies: urgency, dysuria Musculoskeletal: Reports: neck pain. Denies: back pain, arthralgia, myalgia Neurological: Denies: headache, weakness, paresthesias Chest Pain PMH - Past Medical History Medical history: Reports: arthritis, CHF, COPD, coronary artery disease, GERD, hyperlipidemia, hypertension, myocardial infarction Surgical history: Reports: no surgical history Psychiatric history: Reports: depression - Social History Smoking Status: Current every day smoker Alcohol use: Reports: none Drug use: Reports: none Physical Exam - General Limitations: no limitations General appearance: alert, anxious, in distress - Head Head exam: atraumatic, normocephalic, normal inspection - Eye Eye exam: Present: normal appearance, PERRL, EOMI - ENT ENT exam: normal exam, normal oropharynx, mucous membranes moist - Neck Neck exam: Present: normal inspection, full ROM, trachea midline - Chest Chest inspection: Present: normal inspection, symmetric chest wall rise - Respiratory Respiratory exam: Present: normal lung sounds bilaterally - Cardiovascular Cardiovascular exam: Present: regular rate, normal rhythm, normal heart sounds - Abdominal Exam Abdominal exam: Present: soft, Non-Tender. Absent: tenderness, distention, guarding, rebound, rigidity - Extremities Exam Extremities exam: Present: normal inspection, full ROM. Absent: tenderness, pedal edema Course - Consultations Consultation #1: Spoke to Dr. Shabazz in cardiology who agreed that they will see the patient in consult. He stated that given the patient's pain is under control and the fact that we have started him on heparin, he has taken aspirin and he is not having any ST elevation that we do not feel as though he needs to have a cardiac catheter this evening. They will see him on consultation. No further recommendations this time. Time: 20:51 Vital Signs Temperature 98.1 F 06/14/17 19:58 Pulse Rate 94 06/14/17 19:58 Respiratory Rate 24 06/14/17 19:58 Blood Pressure 184/102 06/14/17 19:58 O2 Sat by Pulse Oximetry 100 06/14/17 19:58 Temperature 98.1 F 06/14/17 19:58 Pulse Rate 94 06/14/17 19:58 Respiratory Rate 24 06/14/17 19:58 Blood Pressure 184/102 06/14/17 19:58 O2 Sat by Pulse Oximetry 100 06/14/17 19:58 Oxygen Delivery Oxygen Delivery Room Air Chest Pain - MDM Narrative Medical decision making narrative: Patient's EKG initially demonstrated inferolateral ST depression. The patient was started on a heparin drip, given aspirin, started on a nitro drip. The patient's EKG was repeated and demonstrated an improvement on the ST depression. The patient states that his pain went from a 10 to a 4. He is resting comfortably at this time. After speaking with cardiology they recommended admission to the hospital with continued heparin and they will see the patient in consultation. No further recommendation given at this time. I do not feels that the patient meets catheter lab criteria at this time. We will admit the patient to the hospitalist with concern for N STEMI. Accepted by the hospitalist Dr. Sanches. - Lab Data Lab results reviewed: Yes I reviewed the patient's lab results. Result diagrams: 06/14/17 20:06 06/14/17 20:06 Lab Results 06/14/17 06/14/17 06/14/17 Range/Units 20:05 20:06 20:06 WBC 9.3 (4.3-11.1) K/mcL RBC 5.32 (4.19-5.50) M/mcL Hgb 14.8 (12.9-16.9) g/dL Hct 44.9 (37.5-50.1) % MCV 84.4 (83.0-100.0) fL MCH 27.8 L (28.0-33.3) pg MCHC 33.0 (31.6-35.5) g/dL RDW 13.7 (11.5-14.5) % Plt Count 232 (140-400) K/mcL MPV 8.8 L (9.4-12.4) fL Immature Gran % 0.4 (0-4) % Seg Neutrophils % 52.7 % Lymphocytes % 29.6 % Monocytes % 14.5 % Eosinophils % 2.2 % Basophils % 0.6 % Neutrophils # 4.9 (1.6-8.9) K/mcL Lymphocytes # 2.8 (0.6-4.6) K/mcL Monocytes # 1.4 H (0.0-1.3) K/mcL Eosinophils # 0.2 (0.0-0.6) K/mcL Basophils # 0.1 (0.0-0.2) K/mcL PT 11.4 (9.4-12.1) Seconds INR 1.1 APTT 29.6 (26.0-36.0) Seconds Sodium 135 L (136-145) mEq/L Potassium 4.1 (3.5-4.5) mEq/L Chloride 100 (98-109) mEq/L Carbon Dioxide 25 (19-29) mEq/L BUN 18 (8-26) mg/dL Creatinine 1.51 H (0.72-1.25) mg/dL Est GFR ( Amer) 57 L (> 60) Est GFR (Non-Af Amer) 47 L (> 60) BUN/Creatinine Ratio 12 (6-26) Glucose 94 (70-99) mg/dL Calculated Osmolality 282 (280-300) Calcium 9.7 (8.6-10.8) mg/dL Troponin I (0-0.03) ng/mL 06/14/17 Range/Units 20:06 WBC (4.3-11.1) K/mcL RBC (4.19-5.50) M/mcL Hgb (12.9-16.9) g/dL Hct (37.5-50.1) % MCV (83.0-100.0) fL MCH (28.0-33.3) pg MCHC (31.6-35.5) g/dL RDW (11.5-14.5) % Plt Count (140-400) K/mcL MPV (9.4-12.4) fL Immature Gran % (0-4) % Seg Neutrophils % % Lymphocytes % % Monocytes % % Eosinophils % % Basophils % % Neutrophils # (1.6-8.9) K/mcL Lymphocytes # (0.6-4.6) K/mcL Monocytes # (0.0-1.3) K/mcL Eosinophils # (0.0-0.6) K/mcL Basophils # (0.0-0.2) K/mcL PT (9.4-12.1) Seconds INR APTT (26.0-36.0) Seconds Sodium (136-145) mEq/L Potassium (3.5-4.5) mEq/L Chloride (98-109) mEq/L Carbon Dioxide (19-29) mEq/L BUN (8-26) mg/dL Creatinine (0.72-1.25) mg/dL Est GFR ( Amer) (> 60) Est GFR (Non-Af Amer) (> 60) BUN/Creatinine Ratio (6-26) Glucose (70-99) mg/dL Calculated Osmolality (280-300) Calcium (8.6-10.8) mg/dL Troponin I 0.04 H* (0-0.03) ng/mL - Radiology Data Radiology results reviewed: Yes I reviewed the patient's radiology results. - EKG Data EKG attestation: Yes I reviewed and interpreted this EKG. EKG results narrative: Heart rate 10 5 bpm. MA interval 147 ms. QTc 408 ms. Normal axis. Sinus tachycardia. ST depression noted in leads 2, aVF, V3 through V6. This is new compared to old EKG from 05/02/2017. ST elevation noted in aVR. EKG changes from EKG as mentioned before. EKG #2:2016: R rate 91 bpm. MA interval 141 ms. QTC 419 ms. Normal sinus rhythm with mild ST depression in V2, V3, V4, V5, V6 that is improved from EKG performed at 1953. No ST elevation.
--- NOTE | 2017-06-14 20:07 | Emergency Department Note ---
START Narrative - START START: I examined this patient and my medical decision-making was reviewed with the Resident Physician. I agree with the documented findings, disposition and treatment plan as described except to the extent set forth below. 61 year old male [place] and states that he is having crushing chest pain that is simliar to his episodes in the past and has had a 5-vessel bypass in 2014 followed by a 3 vessel ccath which resutled in stents secondary to the stenosis of the grafts. He appears diaphoretic and is compmlaing onf nausea and shortness of breath that started this evening. He has taken 4 nitro before arrival. WE will start cardiopulmonary workup and it appears he has numerous leads with ST depression in addition to sT elevation in AvR. PAtinet will be started on nitro drip, heparin, and brillenta for therapy now. We will consult cardiology and admit .
[2017-06-14] MEDS: *HR* Ticagrelor 90 MG TABLET PO ONE ×2 (20:14→22:01)
[2017-06-14] MEDS: Nitroglycerin 25 MG/250 ML INFUS..BTL IVC SCH (20:15)
[2017-06-14] MEDS ORDERED: Heparin 25,000 UNIT/500 ML D5W 25,000 UNIT/500 ML MLS IVC SCH (20:15)
[2017-06-14 20:16] LABS: Basophils # 0.1 K/mcL (0.0-0.2); Basophils % 0.6 %; Eosinophils # 0.2 K/mcL (0.0-0.6); Eosinophils % 2.2 %; Hematocrit 44.9 % (37.5-50.1); Hemoglobin 14.8 g/dL (12.9-16.9); Immature Granulocytes % 0.4 % (0-4); Lymphocytes # 2.8 K/mcL (0.6-4.6); Lymphocytes % 29.6 %; Mean Corpuscular Hemoglobin 27.8 pg (28.0-33.3); Mean Corpuscular Volume 84.4 fL (83.0-100.0); Mean Platelet Volume 8.8 fL (9.4-12.4); Monocytes # 1.4 K/mcL (0.0-1.3); Monocytes % 14.5 %; Neutrophils # 4.9 K/mcL (1.6-8.9); Platelet Count 232 K/mcL (140-400); Red Blood Count 5.32 M/mcL (4.19-5.50); Red Cell Distribution Width 13.7 % (11.5-14.5); Segmented Neutrophils % 52.7 %
[2017-06-14 20:20] LABS: INR 1.1; Prothrombin Time 11.4 Seconds (9.4-12.1)
[2017-06-14 20:23] LABS: Activated Partial Thrombo Time 29.6 Seconds (26.0-36.0)
[2017-06-14 20:30] LABS: Calcium 9.7 mg/dL (8.6-10.8); Potassium 4.1 mEq/L (3.5-4.5)
[2017-06-14] MEDS ORDERED: 0.9 % Sodium Chloride 1,000 ML IVC ONE (20:44)
[2017-06-14] MEDS ORDERED: Aspirin 325 MG TABLET PO ONE (20:44)
[2017-06-14] MEDS ORDERED: *HR* Morphine 2 MG/ML SYRINGE IVP ONE ×2 (21:00→22:35)
--- NOTE | 2017-06-14 22:10 | Internal Med History&Physical ---
<Tonie Gardiner - Last Filed: 06/15/17 00:55> Date of Encounter: 06/15/17 Time of Encounter: 21:54 Assessment and Plan (1) NSTEMI (non-ST elevated myocardial infarction) Current visit: Yes Status: Acute NSTEMI at admission. Rerosternal chest pain that radiated to jaw and left arm. Total of 15 nitroglcerin taken today along with nitro patch. EKG showed anterolateral ischemia. 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 Shabazz Continue home medications Qualifiers: Citizen [place] vs. transplanted heart: [place] heart Associated angina: with unspecified angina Qualified Code(s): I25.709 - Atherosclerosis of coronary artery bypass graft(s), unspecified, with unspecified angina pectoris (3) JUAN (acute kidney injury) Current visit: Yes Status: Acute JUAN most likely pre-renal Cr 1.51 IV fluids hold lisinipril avoid nephrotoxic agents (4) HTN (hypertension) Current visit: No Status: Chronic History of hypertension blood pressure elevated at admission 184/102 Continue carvedilol holding lisinopril Qualifiers: Hypertension type: essential hypertension Qualified Code(s): I10 - Essential (primary) hypertension (5) DVT prophylaxis Current visit: No Status: Acute heparin Internal Medicine - H&P: HPI Chief complaint: chest pain Admitted From: Home Plans for Post Hospital Care: Home History of present illness: Mr. Blake is a 61 year old male with a past medical history of multiple [place] with 5 stents, HLD, TIA presented to the hospital complaining of chest pain that began this morning. He stated that it was a pressure like sensation that was retrosternal and radiated down his left arm but was relieved with nitroglycerin tablets (he also has a patch). He reported that he took 15 nitroglycerin in total today. He did not go to the hospital until the evening after he had eaten dinner. He felt sudden severe chest pressure that was similar to when he had an NJ in the past. He also felt diaphoretic, nausea, blurry vision, headache, shortness of breathe. He then drove to the hospital with his . He reported that he has chest pain about every day and has to take nitroglycerin about 5x a week. He reported that in September 2016 he had a CABG with 5 stents placed. He reports that he has had many caths and NJ since he was 38yo. He has a significant family history of cardiac disease: his mother at 53 [place], father 78, brother. He reported that he has to be admitted about once a year for chest pain. Dr. Shabazz is his floriculture professor. He denied fever, chills, syncope, wheezing, hemoptysis, abdominal pain, diarrhea. EKG in the ED showed . He received IV heparin, morphine, nitroglcerin drip which reduced his pain from 10 to 4. Cardiology was consulted and will see patient tomorrow. Past Med Surg Social Fam HX - Past Medical History Source: patient Medical history: arthritis, CHF, COPD, coronary artery disease, GERD, hyperlipidemia, hypertension, myocardial infarction Psychiatric history: depression - Past Surgical History Surgical History: no surgical history, angioplasty/stent, coronary bypass (CABG) - Social History Smoking Status: Former smoker Smokeless Tobacco Status: Yes Alcohol use: none Drug use: none Current living situation: Home Activity Level: Independent ambulation - Family History Mother Living Status: Hx Family Cardiac Disorders: Yes ([place]) Hx Family Respiratory Disorders: No Hx Family Cancer: Yes Hx Family GI Disorders: No Hx Family Endocrine Disorder: Yes Hx Family Neuromuscular Disorders: No Hx Family Neurologic Disorders: Yes Hx Family HEENT Disorders: No Hx Family Autoimmune Disorders: No Father Hx Family Cardiac Disorders: Yes Brother Hx Family Cardiac Disorders: Yes ([place]) Internal Medicine - H&P: Meds Atorvastatin [Lipitor] 40 mg PO HS 05/29/16 [History] Carvedilol 12.5 mg PO BID 05/29/16 [History] Clopidogrel [Plavix] 75 mg PO DAILY 05/29/16 [History] Isosorbide MONOnitrate [Isosorbide Mononitrate ER] 120 mg PO HS 05/29/16 [ History] Lisinopril [Zestril] 10 mg PO DAILY 05/29/16 [History] Nitroglycerin [Nitrostat] 0.4 mg SL Q5M PRN 05/29/16 [History] Oxycodone HCl 10 mg PO TID PRN 05/29/16 [History] Pantoprazole Sodium [Protonix] 40 mg PO DAILY 05/29/16 [History] Quetiapine Fumarate [Seroquel Xr] 50 mg PO BID 05/29/16 [History] Ranolazine [Ranexa] 1,000 mg PO BID 05/29/16 [History] Venlafaxine HCl [Venlafaxine HCl ER] 150 mg PO DAILY 05/29/16 [History] Aspirin 325 mg PO DAILY 08/16/16 [History] Tamsulosin [Flomax] 0.4 mg PO DAILY 09/27/16 [History] Nitroglycerin [Nitro-Dur] 1 patch TD DAILY 06/14/17 [History] 3 Allergy/AdvReac Type Severity Reaction Status Date / Time No Known Allergies Allergy Verified 06/14/17 21:23 All Systems PM: A 10-system review of systems was performed and is negative for pertinent findings except as documented above in the HPI. - Constitutional Constitutional: chills, night sweats, no fever(s), no falls - EENT Eyes: blurry vision, change in vision Nose, mouth and throat: nasal congestion, no sinus pain, no sore throat - Cardiovascular Cardiovascular ROS IM: chest pain, diaphoresis, dyspnea, no palpitations, no syncope - Respiratory Respiratory: cough, no hemoptysis, no wheezing - Gastrointestinal Gastrointestinal: nausea, no abdominal pain, no diarrhea, no vomiting - Genitourinary Genitourinary ROS male: no dysuria, no hematuria - Integumentary Integumentary IM: no rash - Neurological Neurological ROS: headache(s), no dizziness, no frequent falls, no loss of vision - Constitutional Vitals: Temp Pulse Resp BP Pulse Ox 98.1 F 96 24 175/100 98 06/14/17 19:58 06/14/17 21:00 06/14/17 19:58 06/14/17 21:00 06/14/17 21:00 General appearance: Present: mild distress, A&O X 3, pleasant - Head Head exam: Present: atraumatic, normocephalic - Eye Eye exam: Present: conjunctival injection, normal appearance, PERRL - ENT ENT exam: Present: mucous membranes moist, normal exam - Neck Neck exam general surgery: Present: normal inspection. Absent: lymphadenopathy , tenderness - Respiratory Respiratory exam: Present: CTAB. Absent: rales, wheezes - Cardiovascular Cardiovascular exam: Present: RRR, +S1, +S2. Absent: clicks - GI/Abdominal GI/Abdominal exam: Absent: firm, guarding, tenderness - Extremities Exam Extremities exam: Present: normal inspection. Absent: calf tenderness, pedal edema, tenderness - Back Exam Back exam: Present: normal inspection. Absent: rash noted, tenderness - Neurological Exam Neurological exam: Present: alert, oriented X3 - Skin Skin exam: Present: dry, intact Internal Med - H&P Results - Labs CBC & Chem 7: 06/14/17 20:06 06/14/17 20:06 Labs: Short CBC 06/14/17 Range/Units 20:06 WBC 9.3 (4.3-11.1) K/mcL Hgb 14.8 (12.9-16.9) g/dL Hct 44.9 (37.5-50.1) % Plt Count 232 (140-400) K/mcL Neutrophils # 4.9 (1.6-8.9) K/mcL BMP 06/14/17 20:06 Sodium 135 L Potassium 4.1 Chloride 100 Carbon Dioxide 25 BUN 18 Creatinine 1.51 H Glucose 94 Calcium 9.7 Cardiac Enzymes 06/14/17 Range/Units 20:06 Troponin I 0.04 H* (0-0.03) ng/mL - Impressions ITS Impressions Chest X-Ray 06/14/17 19:58 IMPRESSION: 1. Low lung volumes is secondary bronchovascular crowding. No acute abnormalities detected otherwise. D/ / Jay Hyman MD / Jay Hyman MD Interpreting Provider: Jay Hyman MD <Hakan Sanches - Last Filed: 06/15/17 01:36> Date of Encounter: 06/15/17 Time of Encounter: 00:40 - Constitutional Constitutional: no fever(s) - EENT Eyes: no blurry vision, no change in vision - Cardiovascular Cardiovascular ROS IM: chest pain, diaphoresis, dyspnea, dyspnea on exertion, no palpitations, no syncope - Respiratory Respiratory: no hemoptysis, no wheezing - Neurological Neurological ROS: no dizziness, no focal weakness, no frequent falls, no weakness - Constitutional Vitals: Temp Pulse Resp BP Pulse Ox 99 F 85 22 157/91 94 06/15/17 00:30 06/15/17 00:30 06/15/17 00:30 06/15/17 00:30 06/15/17 00:30 Internal Med - H&P Results - Labs CBC & Chem 7: 06/14/17 20:06 06/14/17 20:06 - EKG Data -: EKG Interpreted by Myself EKG shows normal: sinus rhythm - EKG Data Prior EKG available for review: yes When compared to previous EKG: there are significant changes EKG comments: 06/15/17 01:30 lateral wall ischemic changes noted - Diagnostic Studies Chest x-ray Status: image reviewed by me (negative) - Attending Attestation I discussed the patient [place], PMH, ROS, lab data, and exam findings with Dr. Gardiner. I then saw and examined patient independently as well. Patient has extensive history of CAD and NJ. He presented to ER today with chest pain and pressure very similar to that of prior NJ. He had recent LHC with PCI/Stent placement this spring. He has been complaint with his medication and he has not smoked since September when he had his PCI/Stent. He still has minimal chest pain now, and it is much improved compared to presentation in ER. He denies any fever or cough. We will continue his nitroglycerin drip, heparin drip, and Morphine as needed for ongoing chest pain. He will remain npo for now until cardiology see him in the morning. I recommend LHC, but I defer to cardiology. Other than my comments above and noted exam findings, I agree with Dr. Gardiner's assessment and plan.
[2017-06-14] MEDS ORDERED: Naloxone 0.4 MG/ML INJ IVP PRN (22:41)
[2017-06-14] MEDS ORDERED: Ondansetron ODT 4 MG TAB.RAPDIS SL PRN (22:41)
[2017-06-14] MEDS ORDERED: *HR* Morphine 2 MG/ML SYRINGE IVP PRN (22:48)
[2017-06-15] MEDS: 0.9 % Sodium Chloride 1,000 ML IVC SCH ×4 (00:05→22:29)
[2017-06-15] MEDS: *HR* Morphine 2 MG/ML SYRINGE IVP PRN ×4 (01:16→22:27)
[2017-06-15 06:14] LABS: BUN/Creatinine Ratio 16 (6-26); Blood Urea Nitrogen 17 mg/dL (8-26); Calcium 8.5 mg/dL (8.6-10.8); Carbon Dioxide 22 mEq/L (19-29); Chloride 106 mEq/L (98-109); Glucose 106 mg/dL (70-99); Osmolality,Calculated 284 (280-300); Potassium 3.9 mEq/L (3.5-4.5); Sodium 136 mEq/L (136-145); eGFR For African Americans > 60 (> 60); eGFR For Non-African Americans > 60 (> 60)
[2017-06-15] MEDS: Venlafaxine XR (24 HR) 150 MG CAP.ER.24H PO SCH (08:15)
[2017-06-15] MEDS: Aspirin 325 MG TABLET PO SCH (08:15)
[2017-06-15] MEDS: Ranolazine 500 MG TAB.ER.12H PO SCH ×2 (08:15→19:51)
--- NOTE | 2017-06-15 08:21 | Electrocardiograph Report ---
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
--- NOTE | 2017-06-15 08:21 | Electrocardiograph Report ---
[place] [address] Test Date: 2017-06-14 Pat Name: Sagar Blake Department: 104 Room: 2NE33 Gender: M Administrative Staff Supervisor: : 1955 Requested By: Michael Hester Order Number: [id number] Reading MD: Harper Suarez Measurements Intervals [place] Rate: 105 P: 43 RI: 147 QRS: -30 QRSD: 113 T: 123 QT: 347 QTc: 408 Interpretive Statements SINUS TACHYCARDIA POSSIBLE LEFT ATRIAL ENLARGEMENT [-0.1mV P WAVE IN V1/V2] MODERATE INTRAVENTRICULAR CONDUCTION DELAY [105+ ms QRS DURATION, 80+ ms Q/S IN V1/V2, NO Q AND 60+ ms R IN I/aVL/V5/V6] ST DEVIATION AND MODERATE T-WAVE ABNORMALITY, CONSIDER LATERAL ISCHEMIA [-0.1+ mV T WAVE IN I/aVL/V5/V6] Electronically Signed On 06-15-2017 8:19:20 EST by Harper Suarez
--- NOTE | 2017-06-15 08:21 | Electrocardiograph Report ---
[place] [id number] Test Date: 2017-06-14 Pat Name: Sagar Blake Department: 104 Room: 2NE33 Gender: M Hydrology Technician: : 1955 Requested By: Og Crabtree Order Number: [id number] Reading MD: Harper Suarez Measurements Intervals [place] Rate: 91 P: 15 AL: 141 QRS: -29 QRSD: 106 T: 128 QT: 370 QTc: 419 Interpretive Statements SINUS RHYTHM POSSIBLE LEFT ATRIAL ENLARGEMENT [-0.1mV P WAVE IN V1/V2] BORDERLINE LEFT AXIS DEVIATION [QRS AXIS < -20] ST DEVIATION AND MODERATE T-WAVE ABNORMALITY, CONSIDER LATERAL ISCHEMIA [-0.1+ mV T WAVE IN I/aVL/V5/V6] Electronically Signed On 06-15-2017 8:19:30 EST by Harper Suarez
[2017-06-15 08:33] LABS: Basophils # 0.1 K/mcL (0.0-0.2); Basophils % 1.1 %; Eosinophils # 0.2 K/mcL (0.0-0.6); Eosinophils % 2.9 %; Immature Granulocytes % 0.5 % (0-4); Lymphocytes # 2.6 K/mcL (0.6-4.6); Lymphocytes % 38.6 %; Mean Corpuscular HGB Conc 31.8 g/dL (31.6-35.5); Mean Corpuscular Hemoglobin 27.6 pg (28.0-33.3); Mean Corpuscular Volume 86.8 fL (83.0-100.0); Mean Platelet Volume 8.8 fL (9.4-12.4); Monocytes # 0.9 K/mcL (0.0-1.3); Monocytes % 14.2 %; Neutrophils # 2.8 K/mcL (1.6-8.9); Platelet Count 208 K/mcL (140-400); Red Blood Count 5.07 M/mcL (4.19-5.50); Segmented Neutrophils % 42.7 %
--- NOTE | 2017-06-15 09:17 | Cardiology Consult Note ---
Date of Encounter: 06/15/17 Time of Encounter: 09:40 Assessment and Plan (1) NSTEMI (non-ST elevated myocardial infarction) Current Visit: Yes Status: Acute Patient continues to have chest pain despite IV NTG. Troponin 0.04, 0.18. Also in the setting of JUAN on admission. JUAN resolved. Known CAD. Last [facility] 09/2016- showed severe 3 vessel CAD. 90-95% stenosis in the SVG to Right PDA. PTCA and DENNY completed. 60% stenosis in the proximal SVG-1st OM. 95% ISR in the distal SVG-OM1. SVG to LAD was patent. Plan for [facility] today. Continues to have chest pain despite IV NTG. R/B/A of [facility] discussed. Patient agrees to proceed. Check TTE. (2) CAD (coronary artery disease) Current Visit: No Status: Chronic H/o 4V CABG and multiple PCI. Continue asa, plavix, statin, and bb. Reports compliance with medication. Qualifiers: Coronary Disease-Associated Artery/Lesion type: bypass graft [place] vs. transplanted heart: [place] heart Associated angina: with stable angina Qualified Code(s): I25.708 - Atherosclerosis of coronary artery bypass graft(s) , unspecified, with other forms of angina pectoris Discussion w patient/family: The assessment and plan as outlined above was discussed with the patient and/or family members who expressed understanding and agreement. All questions were answered. Thank you for involving us in the care of your patient. Please call with any questions. History of Present Illness Consult date: 06/15/17 Requesting physician: Hakan Sanches Consult reason: NSTEMI Chief complaint: Chest pain History of present illness: Mr. Blake is a 61 year old male with a history of 4V CABG 2003, multiple PCI, mild ischemic cardiomyopathy, and HTN who presents with increased chest pain over the past 24 hours. He has a history of recent [place] in September 2016. He received DENNY to his SVG to RPDA at that time. He states his shortness of breath improved after his stent. He experienced chronic angina since that time but was improved. He reports taking 3-5 NTG SL daily over the last several months. Over the past two days he took up to 15 SL NTG. His pain increased yesterday after eating his dinner and was not relieved after multiple SL NTG. His pain radiated to his neck, Jaw and bilateral arms. He states that his pain is like his previous [place]. Cardiac enzymes were found to be mildly elevated. Cardiology consulted for NSTEMI. Past Med Surg Social Fam HX - Past Medical History Medical history: arthritis, CHF, COPD, coronary artery disease, GERD, hyperlipidemia, hypertension, myocardial infarction Psychiatric history: depression - Past Surgical History Surgical History: no surgical history - Social History Smoking Status: Current every day smoker Smokeless Tobacco Status: Yes Alcohol use: none Drug use: none - Family History Father Hx Family Cardiac Disorders: Yes Brother Hx Family Cardiac Disorders: Yes ([place]) Mother Living Status: Hx Family Cardiac Disorders: Yes ([place]) Hx Family Respiratory Disorders: No Hx Family Cancer: Yes Hx Family GI Disorders: No Hx Family Endocrine Disorder: Yes Hx Family Neuromuscular Disorders: No Hx Family Neurologic Disorders: Yes Hx Family HEENT Disorders: No Hx Family Autoimmune Disorders: No Medications and Allergies Atorvastatin [Lipitor] 40 mg PO HS 05/29/16 [History] Carvedilol 12.5 mg PO BID 05/29/16 [History] Clopidogrel [Plavix] 75 mg PO DAILY 05/29/16 [History] Isosorbide MONOnitrate [Isosorbide Mononitrate ER] 120 mg PO HS 05/29/16 [ History] Lisinopril [Zestril] 10 mg PO DAILY 05/29/16 [History] Nitroglycerin [Nitrostat] 0.4 mg SL Q5M PRN 05/29/16 [History] Oxycodone HCl 10 mg PO TID PRN 05/29/16 [History] Pantoprazole Sodium [Protonix] 40 mg PO DAILY 05/29/16 [History] Quetiapine Fumarate [Seroquel Xr] 50 mg PO BID 05/29/16 [History] Ranolazine [Ranexa] 1,000 mg PO BID 05/29/16 [History] Venlafaxine HCl [Venlafaxine HCl ER] 150 mg PO DAILY 05/29/16 [History] Aspirin 325 mg PO DAILY 08/16/16 [History] Tamsulosin [Flomax] 0.4 mg PO DAILY 09/27/16 [History] Nitroglycerin [Nitro-Dur] 1 patch TD DAILY 06/14/17 [History] 3 Allergy/AdvReac Type Severity Reaction Status Date / Time No Known Allergies Allergy Verified 06/14/17 21:23 All Systems Review: A 10-system review of systems was performed and is negative for pertinent findings except as documented above in the HPI. Physical Examination Vital Signs, Last 4 Hours Temp Pulse Resp BP Pulse Ox 06/15/17 08:42 73 18 110/57 97 06/15/17 06:44 97.9 F 72 12 112/66 95 General: Conversant, No Apparent Distress HEENT: Atraumatic, Normocephaly, Mucus Membranes Moist Neck: No JVD, Normal carotid pulses Cardiac: Reg Rate and Rhythm, Normal S1 and S2, No Murmur Lungs: Normal Breath Sounds, No Wheeze, Rales, Rhonchi Neuro: Alert and responsive, No focal deficits noted Abdomen: Soft, Non-Tender Skin: No rashes noted on visualized skin Musculoskeletal: No Chest Wall Tenderness Extremities: No Clubbing, No Cyanosis, No Edema, Normal Pulses Results 06/15/17 08:22 06/15/17 05:00 Lab Results 06/15/17 06/15/17 06/15/17 03:19 03:19 05:00 WBC Hgb Hct Plt Count APTT 60.5 H D Sodium 136 Potassium 3.9 Chloride 106 Carbon Dioxide 22 BUN 17 Creatinine 1.07 Glucose 106 H Calcium 8.5 L Troponin I 0.18 H* 06/15/17 06/15/17 06/15/17 08:22 08:22 08:22 WBC 6.6 Hgb 14.0 Hct 44.0 Plt Count 208 APTT 55.7 H Sodium Potassium Chloride Carbon Dioxide BUN Creatinine Glucose Calcium Troponin I 0.11 H* - Imaging and Cardiology Echo: report reviewed Cardiac cath: report reviewed - EKG Interpretation EKG results cardiology: personally reviewed Consult Discharge Plan - Plan Referrals: Isabelle Redman, [employer] [Primary Care Provider] -
[2017-06-15] MEDS: *HR* HYDROmorphone 2 MG/ML SYRINGE IVP PRN ×4 (12:45→23:59)
[2017-06-15] MEDS: Nitroglycerin 25 MG/250 ML INFUS..BTL IVC SCH ×2 (12:46→16:10)
[2017-06-15] MEDS ORDERED: *HR* Midazolam HCl 2 MG/2 ML VIAL ONE ×2 (13:25→14:38)
[2017-06-15] MEDS ORDERED: 0.9 % Sodium Chloride 1,000 ML ONE ×2 (13:25→13:31)
[2017-06-15] MEDS ORDERED: *HR* Heparin 10,000 UNIT/10 ML VIAL ONE (13:31)
[2017-06-15] MEDS ORDERED: Heparin 1,000 UNITS/500 mL NS 500 ML ONE (13:31)
[2017-06-15] MEDS ORDERED: Nitroglycerin 1,000 MCG/10 ML VIAL IV ONE (13:31)
--- NOTE | 2017-06-15 13:36 | Pre-Sedation Evaluation ---
Pre-sedation evaluation - Pre-sedation checklist Date of procedure: 06/15/17 [address]: [facility] Recent Vitals: Last Vital Signs Temp 98.2 F 06/15/17 10:56 Pulse 59 06/15/17 10:56 Resp 12 06/15/17 10:56 BP 125/75 06/15/17 10:56 Pulse Ox 97 06/15/17 10:56 H&P (including ROS) documented in medical record: Yes Previous reaction to sedatives/anesthetics: No Dietary Status: NPO after Midnight Airway Assessment: Patient can open mouth completely, TMJ function normal Dentition: No loose teeth or bridges Possible difficult airway: No ASA Classification *see protocol: CLASS IV-Severe systemic disease/constant threat to pt's life Plan of Care: Pt appropriate candidate for procedure/moderate/conscious sedation , Risks/benefits of procedure/sedation discussed w/ patient/family, If not NPO; Risk of intake outweiged by necessity to perform procedure
[2017-06-15] MEDS ORDERED: *HR* Morphine 2 MG/ML SYRINGE ONE (14:24)
--- NOTE | 2017-06-15 15:18 | Invasive Diagnostic Lab Proc ---
Name: Sagar Blake Date of Study: 06/15/2017 Date: 1955 Ht: 72.0in Medical Record#: [id number] Age: 61 Wt: 194.01lb Gender: Male BSA: 2.1 Order #: [id number] BMI: 26.28 Physicians Procedure Physician: Bhavik Rosales DO Referring MD: Referring MD: Staff Name Position Time In Kyara Byrd RN Monitor 01:23 PM Binta Hackett RN Forest Pathology Professor 01:23 PM Jamaal Cortez RT (R) Scrub 01:24 PM Indications Indication Non-Stemi Procedures Performed Procedure L HRT ART/GRFT ANGIO PRQ CARD DENNY STENT W/ANGIO 1 VSL Pre-Procedure Checklist Informed consent is complete signed and on chart. H&P is on chart. ID band is on and ID verified with patient. Patient NPO for procedure The procedure was described for the patient and questions were answered. ECG is on chart. Plan of Care Patient will tolerate the procedure without complications. Adequate level of comfort will be maintained. Hemodynamics will remain stable Patient will recover from procedure without complications. Respiratory function will be maintained. Cardiac rhythm will remain stable. Patient temperature will be maintained. Patient and/or family have verbalized understanding of the procedure. Patient Education Chief Complaint/Reason for Test: Cardiac Cath Developmental Category: Adult (18-64 years) Developmentally Appropriate for Age: Yes Learning Barriers: None Education Needs: Procedure Education Method: Verbal Information Taught: Cardiac Cath Educational Evaluation: Able to repeat information Intravenous Access Time IV Size Location DC'd Fluid/Drip Rate Units RN 10:58 AM 18g 1 1/4" Patent On Arrival Lt Antecubital 10:58 AM 18g 1 1/4" Patent On Arrival Rt Antecubital Allergies No Known Allergies Vital Signs Time BP (mmHg) HR (bpm) O2 Sat. RR (bpm) LOC 01:29 PM / % 5 = Fully awake and oriented or at pre-proc level 01:29 PM / % 4 = Oriented but drowsy 01:56 PM / % 4 = Oriented but drowsy 02:11 PM / % 4 = Oriented but drowsy 02:26 PM / % 4 = Oriented but drowsy 02:41 PM / % 5 = Fully awake and oriented or at pre-proc level 02:06 PM 148 / 92 77 99 % 15 02:11 PM 158 / 83 74 94 % 19 02:16 PM 154 / 89 70 94 % 18 02:22 PM 167 / 103 69 98 % 22 02:26 PM 130 / 103 66 96 % 16 02:32 PM 120 / 93 64 98 % 17 02:37 PM 137 / 87 69 99 % 20 02:41 PM 126 / 85 70 98 % 21 02:47 PM 168 / 99 75 93 % 21 01:40 PM 164 / 78 61 95 % 18 01:41 PM 128 / 74 62 95 % 17 01:46 PM 126 / 76 62 95 % 18 01:51 PM 127 / 56 67 98 % 18 01:56 PM 136 / 81 64 98 % 18 02:01 PM 140 / 75 65 99 % 17 Procedural Medications Time Medication Dose Units Method Given By 01:28 PM Oxygen 2 L/min nasal cannula Binta Hackett RN 01:31 PM Versed 2 mg Intravenous Binta Hackett RN 01:47 PM Lidocaine 2% 10 ml Subcutaneous Bhavik Rosales DO 01:48 PM Lidocaine 2% 10 ml Subcutaneous Bhavik Rosales DO 02:04 PM Heparin 2000 units Intravenous Binta Hackett RN 02:08 PM Nitroglycerin 100 mcg Intracoronary Bhavik Rosales DO 02:24 PM Morphine 2 mg Intravenous Binta Hackett RN 02:39 PM Versed 1 mg Intravenous Binta Hackett RN ASA Classification: CLASS IV- Severe systemic that is constant threat to patient's life Daniel Score Preprocedure Postprocedure Activity 2- Moves 4 extremities sustained head lift Activity 2- Moves 4 extremities sustained head lift Circulation 2- SBP +/= 20 points of pre-anesthetic level Circulation 2- SBP +/= 20 points of pre-anesthetic level Consciousness 2- Awake and alert oriented x 3 Consciousness 2- Awake and alert oriented x 3 O2 Saturation 2- Able to maintain O2 satruation of 92% on room air O2 Saturation 2- Able to maintain O2 satruation of 92% on room air Respiratory 2- Able to deep breathe and cough well Respiratory 2- Able to deep breathe and cough well Total Score 10 Total Score 10 Contrast Agent: Isovue Diagnostic Contrast: 175 ml Total Contrast: 175 ml Fluoro Dose: 2674 mGy Activated Clotting Time Time Seconds to Clot 02:13 PM 271 02:52 PM 199 Procedure Log Time Note Enter By 01:20 PM CathStat 01:20 PM Case Start 01:23 PM Pt arrived to slab worker 2 at 13:23 mm: PM Kyara Byrd RN Position: Monitor Time in: :: PM Binta Hackett RN Position: Forest Pathology Professor Time in: ::24 PM Jamaal Cortez (R) Position: Scrub Time in: 13:24 mm:24 PM Patient charges- Angio tray pack, Navilyst 3mm J, Pulse Oximetry and ACIST tubing and transducer mm: PM Case Delayed No : PM Hair removed from procedure site in procedure lab using clippers. Bilateral groin prepped with Chloraprep by Jamaal Cortez (R), safety strap applied then patient was draped. Skin intact. : PM Physican paged/called 13:24. oumm: PM Physican responded and notified patient is ready 13:24 mm: PM Physician arrived 13:: PM Meet and greet completed : PM Sign in performed according to hospital policy. : PM Procedure start 13:: PM Time: 13:28 Oxygen on at 2 L/min per nasal cannula by Binta Hackett RN : PM Time: 13:29 Patient comfortable and pain free: No mm: PM Complaint: Pain; Pain Score: 6 (1-10); Pain Location: Chest; Relief Measure: Medication; Response: . : PM Time: 13:29LOC: 5 = Fully awake and oriented or at pre-proc level oumm:31 PM Vitals capture started with the following parameters, Patient=Adult, Interval=5 min, Initial Arxsnuqv=824 mmHg, Deflation Rate=5 mmHg, Cuff placed on Right Arm :31 PM Time: 13:31 Versed 2 mg Intravenous Given by Binta Hackett RN [email or web address] 01:32 PM Recorded ECG: HR=60 Condition=Condition 1 01:34 PM Pressure channel 2 zeroed. 01:34 PM Vitals capture stopped. 01:34 PM Pressure channel 2 zeroed. 01:35 PM Vitals capture started with the following parameters, Patient=Adult, Interval=5 min, Initial Nryyopwv=065 mmHg, Deflation Rate=5 mmHg, Cuff placed on Right Arm 01:38 PM Vitals capture stopped. 01:39 PM NIBP STAT measurement started. 01:39 PM ASA Class CLASS IV- Severe systemic that is constant threat to patient's life tsoummers 01:40 PM HR=61 bpm, AUMD=164/78 mmhg, SpO2=95.0 %, Resp=18 B/min, Comment=SR 01:40 PM Vitals capture started with the following parameters, Patient=Adult, Interval=5 min, Initial Fbblrape=954 mmHg, Deflation Rate=5 mmHg, Cuff placed on Right Arm 01:41 PM HR=62 bpm, KVMV=834/74 mmhg, SpO2=95.0 %, Resp=17 B/min, Comment=SR 01:46 PM HR=62 bpm, MEDQ=057/76 mmhg, SpO2=95.0 %, Resp=18 B/min, Comment=SR 01:48 PM Clinical Presentation: Non-STEMI tsoummers 01:48 PM Time out performed according to hospital policy oumm 01:48 PM Time: 13:48 10 ml Lidocaine 2% to right groin Subcutaneous Given by Bhavik Rosales DO oumm 01:49 PM Micro-Introducer Kit utilized for sheath placement tsoumm 01:50 PM Access obtained by percutaneous puncture. 6Fr 10cm Terumo [place] sheath placed in right Femoral artery. [id number] oummers 01:50 PM 0.035 145cm Navilyst 3mmJ wire [id number] oumm 01:51 PM HR=67 bpm, QHEB=630/56 mmhg, SpO2=98.0 %, Resp=18 B/min, Comment=SR 01:51 PM 6Fr FR 4 catheter inserted over the wire [facility] mm 01:51 PM Recorded Pressure: LV, HR=63, Condition=Condition 1 (Left Ventricle) LV 75/-18/-8 01:52 PM Recorded Pressure: LV, Ao, HR=65, Condition=Condition 1 (Left Ventricle) LV 116/-2/8, (Aorta) Ao 114/55/79 01:52 PM Catheter selectively placed in left ventricle tsoummers 01:52 PM Bolus angiogram of left Ventricle complete: hand injection tsoummers 01:53 PM SVG to the LAD angio performed in multiple views. tsoummers 01:53 PM Recorded Pressure: Ao, HR=64, Condition=Condition 1 (Aorta) Ao 127/64/89 01:54 PM Recorded Pressure: Ao, HR=63, Condition=Condition 1 (Aorta) Ao 133/66/92 01:55 PM SVG to the RPDA angio performed in one view. tsoummers 01:56 PM HR=64 bpm, NWAQ=100/81 mmhg, SpO2=98.0 %, Resp=18 B/min, Comment=SR 01:56 PM Time: 13:29LOC: 4 = Oriented but drowsy tsoummers 01:56 PM Time: 13:29 Patient comfortable and pain free: Yes tsoummers 01:57 PM Recorded Pressure: Ao, HR=64, Condition=Condition 1 (Aorta) Ao 117/23/56 01:58 PM RCA angiography performed in multiple views. tsoummers 01:58 PM Catheter removed tsoumm 01:58 PM 6Fr JL4 Runway guide catheter was used to cannulate the PCI vessel successfully. reused? No tsoummers 01:59 PM Recorded Pressure: Ao, HR=64, Condition=Condition 1 (Aorta) Ao 128/61/87 02:00 PM LCA angiography performed in multiple views. tsoumm 02:01 PM Guide catheter removed intact. tsoummers 02:01 PM HR=65 bpm, XZTX=196/75 mmhg, SpO2=99.0 %, Resp=17 B/min, Comment=SR 02:01 PM 6Fr JL5 Runway guide catheter was used to cannulate the PCI vessel successfully. reused? No tsoummers 02:02 PM Recorded Pressure: Ao, HR=63, Condition=Condition 1 (Aorta) Ao 69/-1/27 02:04 PM Inflation device was opened. tsoumm 02:04 PM Time: 14:04 Heparin 2000 units Intravenous Given by Binta Hackett RN tsoummjason 02:05 PM Wire removed tsoummjason 02:05 PM .014 ChoICE PT Extra Support 300cm guide wire across target lesion- successful. reused? No tsoummers 02:06 PM Coronary Dominance: right tsoummers 02:06 PM Lesion found in Mid RCA. Pre Stenosis: 100 Pre TRA Flow: tsoummers 02:06 PM HR=77 bpm, PLYO=133/92 mmhg, SpO2=99.0 %, Resp=15 B/min, Comment=SR 02:06 PM Lesion found in Proximal LAD. Pre Stenosis: 100 Pre TRA Flow: 0: No Flow/No perfusion tsoummers 02:07 PM Lesion found in Proximal Circumflex. Pre Stenosis: 95 Pre TRA Flow: tsoummers 02:07 PM 2.0 mm x 15 mm Emerge Monorail balloon across target lesion- successful. reused? No tsoummers 02:09 PM Time: 14:08 Nitroglycerin 100 mcg Intracoronary Given by Bhavik Rosales DO tsoummers 02:09 PM Lesion found in LMCA. Pre Stenosis: 99 Pre TRA Flow: tsoummers 02:09 PM Right Coronary, Right Posterior Descending Arteries with Right Posterolateral and Acute Marginal branches with 100 % stenosis. If graft is supplying this area, 100 % stenosis tsoummers 02:10 PM Circumflex, Obtuse Marginal, Left Posterior Descending, and Left Posterolateral Coronary Arteries with 95 % stenosis. If graft is supplying this area, 100% stenosis tsoummers 02:11 PM Left Main Coronary Artery with 99% stenosis tsoummers 02:11 PM Proximal Left Anterior Descending Coronary Artery with 100% stenosis. If graft is supplying this territory, 0 % stenosis. tsoummers 02:11 PM HR=74 bpm, WOWK=830/83 mmhg, SpO2=94.0 %, Resp=19 B/min, Comment=SR 02:11 PM Time: 13:56LOC: 4 = Oriented but drowsy tsoummers 02:11 PM Time: 13:56 Patient comfortable and pain free: Yes tsoummers 02:12 PM Balloon catheter removed intact. tsoummers 02:12 PM Guide wire removed intact. tsoummers 02:12 PM Guide catheter removed intact. tsoummers 02:12 PM 6Fr XB LAD 3.5 Larned Bright-Tip guide catheter was used to cannulate the PCI vessel successfully. reused? No tsoummers 02:13 PM At 14:13 the ACT was 271 seconds. tsoummers 02:14 PM guide wire reinserted tsoummers 02:16 PM HR=70 bpm, PUEB=034/89 mmhg, SpO2=94.0 %, Resp=18 B/min, Comment=SR 02:17 PM 1.5 mm x 15 mm Emerge Monorail balloon across target lesion- successful. reused? No tsoummers 02:22 PM HR=69 bpm, JTSE=739/103 mmhg, SpO2=98.0 %, Resp=22 B/min, Comment=SR 02:22 PM Balloon inflated @ 14 brenda for 21 seconds tsoummers 02:23 PM Balloon inflated @ 14 brenda for 15 seconds tsoummers 02:23 PM Recorded Pressure: Ao, HR=67, Condition=Condition 1 (Aorta) Ao 171/92/123 02:24 PM Time: 14:24 Morphine 2 mg Intravenous Given by Binta Hackett RN 02:26 PM HR=66 bpm, FUEV=090/103 mmhg, SpO2=96.0 %, Resp=16 B/min, Comment=SR 02:26 PM Time: 14:11LOC: 4 = Oriented but drowsy mm 02:26 PM Time: 14:11 Patient comfortable and pain free: No tsoummers 02:26 PM Pt complains of chest pressure, treated with medication. tsoumm 02:29 PM Balloon catheter removed intact. mm 02:29 PM Guide wire removed intact. mm 02:29 PM .014 ChoICE PT Extra Support 300cm guide wire across target lesion- successful. reused? No oummers 02:30 PM 2.0 x 15mm Emerge Monorail reinserted. tsmm 02:32 PM HR=64 bpm, MDPO=791/93 mmhg, SpO2=98.0 %, Resp=17 B/min, Comment=SR 02:32 PM Balloon inflated @ 10 brenda for 15 seconds tsoummers 02:33 PM Balloon inflated @ 14 brenda for 23 seconds tsoummers 02:33 PM Balloon inflated @ 14 brenda for 16 seconds tsoummers 02:34 PM Balloon inflated @ 14 brenda for 16 seconds tsoummers 02:34 PM Balloon catheter removed intact. tsoummers 02:35 PM 2.5 mm x 15mm NC Emerge balloon across target lesion- successful. reused? No tsoummers 02:36 PM Balloon inflated @ 12 brenda for 13 seconds tsoummers 02:37 PM Balloon inflated @ 14 brenda for 14 seconds tsoummers 02:37 PM Balloon inflated @ 16 brenda for 15 seconds tsoummers 02:37 PM HR=69 bpm, DJWR=285/87 mmhg, SpO2=99.0 %, Resp=20 B/min, Comment=SR 02:38 PM Balloon inflated @ 18 brenda for 17 seconds tsoummers 02:38 PM Balloon catheter removed intact. tsoummers 02:39 PM Time: 14:39 Versed 1 mg Intravenous Given by Binta Hackett RN tsoummers 02:40 PM 2.5mm x 20mm Synergy drug-eluting stent across target lesion- successful Lot #[id number] tsoummers 02:41 PM Stent deployed @ 14 brenda for 20 seconds tsoummers 02:41 PM HR=70 bpm, XBPK=550/85 mmhg, SpO2=98.0 %, Resp=21 B/min, Comment=SR 02:41 PM Time: 14:26 Patient comfortable and pain free: Yes tsoummers 02:41 PM Time: 14:26LOC: 4 = Oriented but drowsy tsoummers 02:42 PM Stent delivery system removed intact. tsoummers 02:42 PM 2.5mm x 16mm Synergy drug-eluting stent across target lesion- successful Lot #[id number] tsoummers 02:43 PM Stent deployed @ 18 brenda for 18 seconds tsoummers 02:44 PM Stent balloon reinflated @ 18 brenda for 12 seconds tsoummers 02:45 PM Stent delivery system removed intact. tsoummers 02:46 PM Guide wire removed intact. tsoummers 02:47 PM Guide catheter removed intact. tsoummers 02:47 PM HR=75 bpm, HQLT=333/99 mmhg, SpO2=93.0 %, Resp=21 B/min, Comment=SR 02:48 PM Procedure completed at 14:48 tsmmers 02:49 PM Sign out completed: Radiation Dose 2673.67 mGy Fluoro Time: 25.3 Isovue 370 - 200ml contrast 275 ml given by Bhavik Rosales DO. Complications: NoneCardiac Rehab Consult needed: YesConfirmed administered medications: Yes tsmmers 02:49 PM Isovue 370 - 200ml,2 Bottle(s) used. tsoummers 02:49 PM Post ECG Sinus Rhythm tsoummers 02:49 PM Post Blood Pressure 168/99 tsoummers 02:49 PM Information taught Cardiac Cath and PCI tsoummers 02:49 PM Education needs Procedure, Plan of Care, and Responsibilities of Patient in Care tsoumm 02:49 PM Learning barriers :None tsoummers 02:49 PM Education Methods Verbal tsoummers 02:49 PM Education evaluation Able to repeat information tsoummers 02:49 PM Site status No bleeding/hematoma - Rt Groin as reported by Jamaal Cortez RT (R) at 14:49 tsoummers 02:50 PM Opsite applied tsoummers 02:50 PM Complications: None tsoummers 02:50 PM Fluoro Time: 25.3 tsoummers 02:50 PM Isovue 370 - 200ml contrast 275 ml given by Bhavik Rosales DO. tsoumm 02:51 PM Radiation Dose 2673.67 mGy tsoummers 02:51 PM Vitals capture stopped. 02:52 PM At 14:52 the ACT was 199 seconds. tsoummers 02:52 PM Sheath left in place to be pulled on floor/holding area tsoummers 02:57 PM Time: 14:41LOC: 5 = Fully awake and oriented or at pre-proc level tsoummers 02:57 PM Time: 14:41 Patient comfortable and pain free: Yes tsoummers 02:59 PM Family placed in consult room. tsoummers 03:06 PM Report given to Radha CONNELLY Pt taken to ICU Room #04. 15:06 tsoummers 03:06 PM Patient out of room: 15:06 tsoummers Complications Complication None Hemodynamics Pressures Site Systolic/A Wave Diastolic/V Wave Mean LV 75 -18 -8 LV 116 -2 8 AO 114 55 79 AO 127 64 89 AO 133 66 92 AO 117 23 56 AO 128 61 87 AO 69 -1 27 AO 171 92 123 Post Procedure Information Blood Pressure: 168/99 mmHg Rhythm: Sinus Rhythm Post procedural instructions were given Site Checks Time Location Status Staff Sheath In? Note 02:49 PM Rt Groin No bleeding/hematoma Jamaal Cortez RT (R) Pulses Time Site Pre-Procedure Post-Procedure Note 06/15/2017 10:58:00 AM Bilateral DP 2+ 06/15/2017 10:58:00 AM Bilateral radial 2+ Updated by Kyara Byrd RN on 06/15/2017 3:12:45 PM electronically signed on 06/15/2017 3:13:29 PM with status of Final
--- NOTE | 2017-06-15 15:34 | Event Note ---
Date of Encounter: 06/15/17 Time of Encounter: 09:10 Patient continues to have chest pain and also has a headache. Associated with some shortness of breath with minimal exertion. On nitro drip and heparin drip. Awaiting evaluation by cardiology. Plan for cardiac catheterization later today. We will change pain medication regimen to Dilaudid to control pain better.
[2017-06-15] MEDS ORDERED: Mag Hydrox/Al Hydrox/Simeth 30 ML UDC PO ONE (17:33)
[2017-06-16] MEDS: *HR* Morphine 2 MG/ML SYRINGE IVP PRN ×4 (01:55→14:06)
[2017-06-16 03:23] LABS: Basophils % 0.5 %; Eosinophils # 0.3 K/mcL (0.0-0.6); Eosinophils % 4.1 %; Hemoglobin 12.6 g/dL (12.9-16.9); Immature Granulocytes % 0.3 % (0-4); Lymphocytes # 2.6 K/mcL (0.6-4.6); Lymphocytes % 39.8 %; Mean Corpuscular HGB Conc 32.3 g/dL (31.6-35.5); Mean Corpuscular Hemoglobin 28.3 pg (28.0-33.3); Mean Corpuscular Volume 87.4 fL (83.0-100.0); Mean Platelet Volume 8.8 fL (9.4-12.4); Monocytes # 0.8 K/mcL (0.0-1.3); Monocytes % 12.7 %; Neutrophils # 2.8 K/mcL (1.6-8.9); Platelet Count 178 K/mcL (140-400); Red Blood Count 4.46 M/mcL (4.19-5.50); Red Cell Distribution Width 14.3 % (11.5-14.5); Segmented Neutrophils % 42.6 %
[2017-06-16 03:38] LABS: BUN/Creatinine Ratio 18 (6-26); Blood Urea Nitrogen 15 mg/dL (8-26); Calcium 8.3 mg/dL (8.6-10.8); Carbon Dioxide 24 mEq/L (19-29); Chloride 107 mEq/L (98-109); Glucose 100 mg/dL (70-99); Osmolality,Calculated 283 (280-300); Potassium 4.1 mEq/L (3.5-4.5); Sodium 136 mEq/L (136-145); eGFR For African Americans > 60 (> 60); eGFR For Non-African Americans > 60 (> 60)
[2017-06-16] MEDS: *HR* HYDROmorphone 2 MG/ML SYRINGE IVP PRN ×6 (04:00→23:11)
[2017-06-16] MEDS: Nitroglycerin 25 MG/250 ML INFUS..BTL IVC SCH (06:05)
[2017-06-16] MEDS: Ranolazine 500 MG TAB.ER.12H PO SCH ×2 (08:02→21:25)
[2017-06-16] MEDS: Aspirin 325 MG TABLET PO SCH (08:03)
[2017-06-16] MEDS: Venlafaxine XR (24 HR) 150 MG CAP.ER.24H PO SCH (08:03)
--- NOTE | 2017-06-16 10:17 | Cardiology Progress Note ---
Date of Encounter: 06/16/17 Time of Encounter: 09:00 Assessment and Plan (1) NSTEMI (non-ST elevated myocardial infarction) Current Visit: Yes Status: Acute Patient continues to have chest pain after PCI to the LCX artery, despite IV NTG and dilauded. Recommended to increase IV NTG this morning. Pain improved with increase, will convert to imdur. Troponin 0.04, 0.18. Also in the setting of JUAN on admission. JUAN resolved. S/p LHC yesterday. Previous stent placed in September in the SVG - PDA is occluded. SVG to LAI is patent. SVG to OM occluded. Patient recieved DENNY to the LCX artery. TTE shows EF 40% with segmental WMA. Slightly decreased from previous. EF 45% in 2016. No significant valvular disease. Repeat EKG shows no change from previous. LHC films reviewed by and POC discussed. Repeat LHC not recommended. Continue medical management and rule out non-cardiac causes of chest pain. Consider GI work-up. Change NTG Gtt to imdur. Continue asa, plavix, statin, and bb. Continue Ranexa. Change imdur to 120 BID. Stopp IV NTG. Recommend converting to home pain medications. Patient agrees with plan. Please call with questions. (2) CAD (coronary artery disease) Current Visit: No Status: Chronic H/o 4V CABG and multiple PCI. s/p PCI to the LCX artery 06/15/17. Continue asa , plavix, statin, and bb. Reports compliance with medication. Qualifiers: Coronary Disease-Associated Artery/Lesion type: bypass graft [place] vs. transplanted heart: [place]' heart Associated angina: with stable angina Qualified Code(s): I25.708 - Atherosclerosis of coronary artery bypass graft(s) , unspecified, with other forms of angina pectoris Discussion w patient/family: The assessment and plan as outlined above was discussed with the patient and/or family members who expressed understanding and agreement. All questions were answered. Thank you for involving us in the care of your patient. Please call with any questions. Subjective Principal diagnosis: NSTEMI Interval history: Mr. Blake continues to have constant chest pain that was not relieved after PCI. Objective Vital Signs, Last 4 Hours Temp Pulse Resp BP Pulse Ox 06/16/17 08:00 67 30 144/90 94 06/16/17 07:55 97.6 F 06/16/17 07:38 79 06/16/17 07:00 73 30 141/86 94 General: Conversant, No Apparent Distress HEENT: Atraumatic, Normocephaly, Mucus Membranes Moist Neck: No JVD, Normal carotid pulses Cardiac: Reg Rate and Rhythm, Normal S1 and S2, No Murmur Lungs: Normal Breath Sounds, No Wheeze, Rales, Rhonchi Neuro: Alert and responsive, No focal deficits noted Abdomen: Soft, Non-Tender Skin: No rashes noted on visualized skin Musculoskeletal: No Chest Wall Tenderness Extremities: No Clubbing, No Cyanosis, No Edema, Normal Pulses, Other (right femoral access without redness or swelling. ) Results 06/16/17 03:11 06/16/17 03:11 Lab Results 06/15/17 06/16/17 06/16/17 16:14 03:11 03:11 WBC 6.6 Hgb 12.6 L Hct 39.0 Plt Count 178 APTT 47.1 H Sodium 136 Potassium 4.1 Chloride 107 Carbon Dioxide 24 BUN 15 Creatinine 0.85 Glucose 100 H Calcium 8.3 L Consult Discharge Plan - Plan Referrals: Isabelle Redman, [facility] [Primary Care Provider] -
[2017-06-16] MEDS ORDERED: Isosorbide MONOnitrate (24 HR) 30 MG TAB.ER.24H PO SCH ×2 (10:45→11:55)
[2017-06-16] MEDS ORDERED: GI Cocktail 40 ML EACH PO ONE (13:57)
--- NOTE | 2017-06-16 14:01 | Internal Med Progress Note ---
Date of Encounter: 06/16/17 Time of Encounter: 08:30 - Assessment and plan (1) Chest pain Current Visit: Yes Status: Acute Assessment and plan: Status post cardiac catheterization. Patient was found to have occlusion of prior stents placed in September SVG to PDA and to OM. A new drug-eluting stent was placed to LCx. On nitro drip currently for managing chest pain. Cardiology following. We will await recommendations to control his pain better. In the meantime continue intravenous narcotic medications for breakthrough pain. High risk for complications. We will also give a trial of GI cocktail to treat GI causes of chest pain. Qualifiers: Chest pain type: precordial pain Qualified Code(s): R07.2 - Precordial pain (2) NSTEMI (non-ST elevated myocardial infarction) Current Visit: Yes Status: Acute Assessment and plan: Status post left heart catheterization. (3) JUAN (acute kidney injury) Current Visit: Yes Status: Resolved Assessment and plan: Renal function has normalized at this time. We will stop IV fluids (4) CAD (coronary artery disease) of artery bypass graft Current Visit: Yes Status: Chronic Assessment and plan: Status post left heart catheterization. Patient does have occluded prior stents. Could be contributing to his chest pain. Adjust medications per cardiology recommendations to control pain better. Continue aspirin, Plavix, beta vinay. 2-D echocardiogram shows an EF of 40% which is slightly decreased from his prior echocardiogram. He also has segmental left ventricular systolic dysfunction and mild diastolic dysfunction. Qualifiers: [place] vs. transplanted heart: [place] heart Associated angina: with unstable angina Qualified Code(s): I25.700 - Atherosclerosis of coronary artery bypass graft(s), unspecified, with unstable angina pectoris (5) HTN (hypertension) Current Visit: Yes Status: Chronic Assessment and plan: Well-controlled Qualifiers: Hypertension type: essential hypertension Qualified Code(s): I10 - Essential (primary) hypertension (6) DVT prophylaxis Current Visit: No Status: Acute Assessment and plan: Currently on IV heparin - Subjective Interval history: Patient underwent left heart catheterization yesterday and is now in ICU for monitoring postprocedure. Complains of continued chest pain that 7 out of 10 in severity. Denies any shortness of breath. No nausea. On nitroglycerin and heparin drips. - Constitutional Vitals: Temp Pulse Resp BP Pulse Ox 97.9 F 83 30 140/78 94 11/30/17 13:10 06/16/17 12:00 06/16/17 12:00 06/16/17 12:00 06/16/17 12:00 General appearance: Present: mild distress, A&O X 3, pleasant, answers questions appropriately - Neck Neck exam general surgery: Present: supple, trachea midline. Absent: lymphadenopathy - Respiratory Respiratory exam: Present: prolonged expiratory phase. Absent: accessory muscle use, rales, rhonchi, wheezes - Cardiovascular Cardiovascular exam: Present: RRR, +S1, +S2. Absent: diastolic murmur, gallop, rubs, systolic murmur - GI/Abdominal GI/Abdominal exam: Present: normal bowel sounds, soft, no peritoneal signs. Absent: distended, tenderness - Extremities Exam Extremities exam: Present: warm, radial pulses palpable and symmetrical. Absent : calf tenderness, cyanotic, pedal edema - Neurological Exam Neurological exam: Present: CN II-XII intact, oriented X3, no focal deficits. Absent: facial droop, speech deficit Internal Medicine: Result - Labs CBC & Chem 7: 06/16/17 03:11 06/16/17 03:11 Labs: Short CBC 06/16/17 Range/Units 03:11 WBC 6.6 (4.3-11.1) K/mcL Hgb 12.6 L (12.9-16.9) g/dL Hct 39.0 (37.5-50.1) % Plt Count 178 (140-400) K/mcL Neutrophils # 2.8 (1.6-8.9) K/mcL BMP 06/16/17 03:11 Sodium 136 Potassium 4.1 Chloride 107 Carbon Dioxide 24 BUN 15 Creatinine 0.85 Glucose 100 H Calcium 8.3 L - ABG Interpretation ABG results: PT/INR, D-dimer PT 11.4 Seconds (9.4-12.1) 06/14/17 20:05 - Impressions Impressions Echocardiogram 06/15/17 11:59 Impressions: LVEF 40%. Mildly dilated left ventricle. Segmental left ventricular systolic dysfunction. Mild left ventricular diastolic dysfunction. Atypical septal motion consistent with post-operative status. Normal right ventricular structure and function. Unable to estimate RVSP due to lack of TR jet. No significant valvular dysfunction. Future studies should be performed with Definity contrast. Left Ventricular Wall Motion: Rest Echo Findings The mid inferior, basal inferior, mid inferior lateral and basal inferior lateral issa were hypokinetic. All other wall segments showed normal motion. Findings: Study Quality * Technically sub-optimal due to poor echocardiographic windows. ECG Findings * Normal sinus rhythm. Left Ventricle * LVEF 40%. * Mildly dilated left ventricle. * Segmental left ventricular systolic dysfunction. * Mild left ventricular diastolic dysfunction. * Atypical septal motion consistent with post-operative status. Right Ventricle * Normal right ventricular structure and function. Left Atrium * Mildly dilated left atrium. Right Atrium * Mildly dilated right atrium. Aortic Valve * Trileaflet aortic valve with normal function. * No aortic regurgitation. * No aortic stenosis. Mitral Valve * Normal mitral valve structure and function. * No mitral regurgitation. * No mitral stenosis. Tricuspid Valve * Normal tricuspid valve structure and function. * No tricuspid regurgitation. * Unable to estimate RVSP due to lack of TR jet. Pulmonic Valve * Normal pulmonic valve structure and function. * No pulmonic regurgitation. Aorta * Normally sized aortic root. Pericardium * The pericardium appears normal. IVC * The IVC is not well evaluated. Pulmonary Artery * Normal visualized portions of the main pulmonary artery. - VTE Documentation of Mechanical Device: Intermittent pneumatic compression device Consult Discharge Plan - Plan Referrals: Isabelle Redman, MARKETING CONTENT MANAGER [Primary Care Provider] -
[2017-06-16] MEDS ORDERED: *HR* Morphine 2 MG/ML SYRINGE IVP PRN (17:42)
[2017-06-16] MEDS ORDERED: Naloxone 0.4 MG/ML INJ IVP PRN (17:42)
[2017-06-16] MEDS ORDERED: Ondansetron ODT 4 MG TAB.RAPDIS SL PRN (17:42)
[2017-06-16] MEDS: Isosorbide MONOnitrate (24 HR) 30 MG TAB.ER.24H PO SCH (21:25)
[2017-06-16] MEDS: *HR* OxyCODONE Immed Rel 5 MG TABLET PO PRN (21:31)
[2017-06-17] MEDS: *HR* HYDROmorphone 2 MG/ML SYRINGE IVP PRN (05:43)
[2017-06-17 07:48] VITALS: BP 103/62
[2017-06-17] MEDS: Isosorbide MONOnitrate (24 HR) 30 MG TAB.ER.24H PO SCH (08:39)
[2017-06-17] MEDS: Ranolazine 500 MG TAB.ER.12H PO SCH (08:42)
[2017-06-17] MEDS ORDERED: Venlafaxine XR (24 HR) 150 MG CAP.ER.24H PO SCH (09:00)
[2017-06-17] MEDS ORDERED: Aspirin 325 MG TABLET PO SCH (09:00)
[2017-06-17] MEDS: *HR* OxyCODONE Immed Rel 5 MG TABLET PO PRN (09:48)
--- NOTE | 2017-06-17 11:32 | Cardiology Progress Note ---
Date of Encounter: 06/17/17 Time of Encounter: 09:30 Assessment and Plan (1) NSTEMI (non-ST elevated myocardial infarction) Current Visit: Yes Status: Acute Troponin 0.04, 0.18. Also in the setting of JUAN on admission. JUAN resolved. S/p LHC yesterday. Previous stent placed in September in the SVG - PDA is occluded. RCA occluded. SVG to LAI is patent. SVG to OM occluded. Patient received DENNY to the LCX artery per Dr. Rosales. Full report pending. TTE shows EF 40% with segmental WMA. Slightly decreased from previous. EF 45% in 2016. No significant valvular disease. Repeat EKG shows no change from previous. LHC films reviewed by and POC discussed. Repeat LHC not recommended. Continue medical management and rule out non-cardiac causes of chest pain. Consider GI work-up in out-pt setting. On maximal medical therapy. Continue asa, plavix, statin, and bb. Continue Ranexa. Tolerating imdur 120 mg BID and pain improved. NTG SL PRN. Importance of DAPT with asa and plavix uninterrupted for minimum of one year discussed and he voiced understanding. Out-pt f/u scheduled next Tuesday with Dr. Shabazz. Patient agrees with plan. Please call with questions. Cardiology signing off. (2) CAD (coronary artery disease) Current Visit: No Status: Chronic H/o 4V CABG and multiple PCI. s/p PCI to the LCX artery 06/15/17. Continue asa , plavix, statin, and bb. Reports compliance with medication. Qualifiers: Coronary Disease-Associated Artery/Lesion type: bypass graft [place] vs. transplanted heart: [place] heart Associated angina: with stable angina Qualified Code(s): I25.708 - Atherosclerosis of coronary artery bypass graft(s) , unspecified, with other forms of angina pectoris Discussion w patient/family: The assessment and plan as outlined above was discussed with the patient and/or family members who expressed understanding and agreement. All questions were answered. Thank you for involving us in the care of your patient. Please call with any questions. Subjective Principal diagnosis: NSTEMI Interval history: Mr. Blake reports chest pain improved . Continues to have a 5-6/10 chest pain that has been constant since admission. He ambulated in the hallway without difficulty. Objective Vital Signs, Last 4 Hours Temp Pulse Resp BP Pulse Ox 06/17/17 07:47 97.7 F 67 17 103/62 96 General: Conversant, No Apparent Distress HEENT: Atraumatic, Normocephaly, Mucus Membranes Moist Neck: No JVD, Normal carotid pulses Cardiac: Reg Rate and Rhythm, Normal S1 and S2, No Murmur Lungs: Normal Breath Sounds, No Wheeze, Rales, Rhonchi Neuro: Alert and responsive, No focal deficits noted Abdomen: Soft, Non-Tender Skin: No rashes noted on visualized skin Musculoskeletal: No Chest Wall Tenderness Extremities: No Clubbing, No Cyanosis, No Edema, Normal Pulses Results 06/16/17 03:11 06/16/17 03:11 - Imaging and Cardiology Echo: report reviewed Cardiac cath: report reviewed - EKG Interpretation EKG results cardiology: personally reviewed - VTE Documentation of Mechanical Device: Intermittent pneumatic compression device Consult Discharge Plan - Plan Additional Instructions: pcp requested Referrals: Isabelle Redman POLISHER NUMERAL [Primary Care Provider] -
--- NOTE | 2017-06-17 13:55 | Discharge Summary ---
Date of Encounter: 06/17/17 Time of Encounter: 10:00 - Discharge Diagnosis (1) Chest pain Priority: Primary Status: Acute Qualifiers: Chest pain type: precordial pain Qualified Code(s): R07.2 - Precordial pain (2) NSTEMI (non-ST elevated myocardial infarction) Priority: Secondary Status: Acute (3) JUAN (acute kidney injury) Priority: Secondary Status: Resolved (4) CAD (coronary artery disease) of artery bypass graft Priority: Secondary Status: Chronic Qualifiers: [place] vs. transplanted heart: [place] heart Associated angina: with unstable angina Qualified Code(s): I25.700 - Atherosclerosis of coronary artery bypass graft(s), unspecified, with unstable angina pectoris (5) HTN (hypertension) Priority: Secondary Status: Chronic Qualifiers: Hypertension type: essential hypertension Qualified Code(s): I10 - Essential (primary) hypertension (6) DVT prophylaxis Priority: Secondary Status: Acute - Discharge Medications Prescriptions: Isosorbide MONOnitrate [Isosorbide Mononitrate ER] 120 mg PO BID #60 tab.er.24h Home Medications: Atorvastatin [Lipitor] 40 mg PO HS 05/29/16 [History] Carvedilol 12.5 mg PO BID 05/29/16 [History] Clopidogrel [Plavix] 75 mg PO DAILY 05/29/16 [History] Lisinopril [Zestril] 10 mg PO DAILY 05/29/16 [History] Nitroglycerin [Nitrostat] 0.4 mg SL Q5M PRN 05/29/16 [History] Oxycodone HCl 10 mg PO TID PRN 05/29/16 [History] Pantoprazole Sodium [Protonix] 40 mg PO DAILY 05/29/16 [History] Quetiapine Fumarate [Seroquel Xr] 50 mg PO BID 05/29/16 [History] Ranolazine [Ranexa] 1,000 mg PO BID 05/29/16 [History] Venlafaxine HCl [Venlafaxine HCl ER] 150 mg PO DAILY 05/29/16 [History] Aspirin 325 mg PO DAILY 08/16/16 [History] Tamsulosin [Flomax] 0.4 mg PO DAILY 09/27/16 [History] Isosorbide MONOnitrate [Isosorbide Mononitrate ER] 120 mg PO BID #60 tab.er.24h 06/17/17 [Rx] Allergies/Adverse Reactions: 3 Allergy/AdvReac Type Severity Reaction Status Date / Time No Known Allergies Allergy Verified 06/14/17 21:23 Procedures/tests Complete & Pending: Procedures Performed prior 72 hours Category Date Time Status CL Cardiac Catheterization [CL] Routine Psych Coordinator 06/15/17 10:08 Ordered ECG 12 lead ECG [ECG] Routine Y 06/14/17 20:16 Completed ECG 12 lead ECG [ECG] Routine Y 06/16/17 08:58 Completed EKG [ECG 12 lead ECG] [ECG] Stat Y 06/15/17 03:53 Completed EV echocardiogram Routine Y 06/15/17 11:59 Completed Date of admission: 06/14/17 21:35 Primary care physician: Isabelle Redman CNP Consults: 06/15/17 10:09 Consult to Cardiac Rehabilitation-Phase1 [CONS] Routine Comment: Reason for Consult: NSTEMI Call Completed: Yes Discharging clinician: Og Crabtree Anticipated date of discharge: 06/17/17 - Patient Status Disposition: Home, Self-Care Condition: Good Functional capacity at discharge: independent ambulation Overall status at discharge: patient is progressing back to baseline - Discharge Instructions Instructions: Isosorbide Mononitrate (By mouth), Myocardial Infarction (DC), Chest Pain (DC) Follow Up With: Isabelle Redman CNP [Primary Care Provider] - (in 1-2 weeks) Additional Instructions: Follow up with Cardiology as scheduled pcp requested - Diet and Activity Activity: increase activity as tolerated Diet: low fat, low cholesterol, low salt diet Hospital course: Mr. Blake is a 61 year old male patient with a history of coronary artery disease, prior ME with 5 stents and CABG, hypertension, hyperlipidemia presented to the ER with complaints of chest pain. He was found to have an elevation in his troponin with ST depression in lateral leads. He was started on treatment for non-ST elevation ME with IV heparin and IV nitro drip and intravenous morphine intermittently to control his pain. His symptoms only improved slightly with this management. Cardiology was consulted. Patient underwent left heart catheterization and was found to have occlusion of prior stents from SVG to PDA and OM. He also had stenosis in his left circumflex and this was stented with a drug-eluting stent. Patient's pain continued to persist through most of yesterday and his Imdur dosage was increased to 120 mg twice daily. Today his pain is much better and he is feeling much better. He is clinically stable for discharge home. He will follow up with cardiology for further management of his coronary artery disease and cardiomyopathy. His EF was 40% on echocardiogram. - Time Spent with Patient Total time spent providing and/or coordinating discharge services: Greater than 30 minutes (35 min) - Constitutional Vitals: Temp Pulse Resp BP Pulse Ox 97.7 F 67 17 103/62 96 06/17/17 07:47 06/17/17 07:47 06/17/17 07:47 06/17/17 07:47 06/17/17 07:47 General appearance: Present: mild distress, A&O X 3, pleasant, answers questions appropriately - Respiratory Respiratory exam: Present: CTAB. Absent: accessory muscle use, rales, rhonchi, wheezes - Cardiovascular Cardiovascular exam: Present: RRR, +S1, +S2. Absent: diastolic murmur, gallop, rubs, systolic murmur - GI/Abdominal GI/Abdominal exam: Present: normal bowel sounds, soft, no peritoneal signs. Absent: distended, tenderness - Extremities Exam Extremities exam: Present: warm, radial pulses palpable and symmetrical. Absent : calf tenderness, cyanotic, pedal edema - Neurological Exam Neurological exam: Present: alert, oriented X3, no focal deficits. Absent: facial droop, speech deficit - Skin Skin exam: Present: dry, intact - VTE Documentation of Mechanical Device: Intermittent pneumatic compression device
--- NOTE | 2017-06-17 16:50 | Electrocardiograph Report ---
[place] [id number] Test Date: 2017-06-16 Pat Name: Sagar Blake Department: 109 Room: 2NE24 Gender: M County Adviser: JUDI : 1955 Requested By: Og Crabtree Order Number: [id number] Reading MD: Jakub Shabazz DO Measurements Intervals [place] Rate: 75 P: 36 TX: 144 QRS: 9 QRSD: 108 T: 169 QT: 417 QTc: 446 Interpretive Statements Sinus rhythm Anteroseptal and lateral ST-T changes possibly due to ischemia Electronically Signed On 06-17-2017 16:48:42 EST by Jakub Shabazz DO
== END 2017-06-17 15:24 | disposition home or self-care (01) | DRG 247 ==
LOC: EMEROO 19:57 → 2NENU 21:00 → ICNU 06-15 15:21 → 2NENU 06-16 18:41
PROVIDERS: ADMIT Pediatrics; ATTEND Internal Medicine

== ENCOUNTER 2017-12-16 14:26 | Inpatient (IN) ==
[2017-12-16] MEDS ORDERED: Aspirin 81 MG TAB.CHEW PO ONE (14:31)
--- NOTE | 2017-12-16 14:39 | Emergency Department Note ---
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 Cardiology feels he has unstable angina and needs him placed on heparin Plavix nitroglycerin drip. He will require admission. Pt complaint: chest pain Onset (ago): day(s) Duration: intermittent Onset: during exertion Pain Location: substernal, left chest Quality: tightness, aching, heaviness Pain Radiation: none Improves with: rest Worsens with: exertion Context: other (Here in the retail coverage merchandiser lead's office with new EKG changes) Associated symptoms: Reports: other (Generalized weakness) Treatments prior to arrival chest pain: aspirin - Related Data Home Medications Medication Instructions Recorded Confirmed Atorvastatin [Lipitor] 40 mg PO HS 05/29/16 12/16/17 Carvedilol 12.5 mg PO BID 05/29/16 12/16/17 Clopidogrel [Plavix] 75 mg PO DAILY 05/29/16 12/16/17 Lisinopril [Zestril] 10 mg PO DAILY 05/29/16 12/16/17 Nitroglycerin [Nitrostat] 0.4 mg SL Q5M PRN 05/29/16 12/16/17 OxyCODONE Immed Rel [Roxicodone 10 10 mg PO TID PRN 05/29/16 12/16/17 MG] Pantoprazole Sodium [Protonix] 40 mg PO BID 05/29/16 12/16/17 Quetiapine Fumarate [Seroquel Xr] 50 mg PO BID 05/29/16 12/16/17 Ranolazine [Ranexa] 1,000 mg PO BID 05/29/16 12/16/17 Venlafaxine HCl [Venlafaxine HCl 150 mg PO DAILY 05/29/16 12/16/17 ER] Aspirin 325 mg PO DAILY 08/16/16 12/16/17 Allergies Allergy/AdvReac Type Severity Reaction Status Date / Time No Known Allergies Allergy Verified 10/07/17 11:12 All systems ED: reviewed and negative except as stated. Constitutional: Denies: fever, chills, weakness, weight change Eyes: Denies: eye pain, eye discharge, vision change ENT ED: Denies: ear pain, throat pain, dental pain, hearing loss, epistaxis, congestion, dysphagia Cardiovascular: Reports: chest pain. Denies: palpitations, dyspnea on exertion , edema, syncope Respiratory: Denies: cough, dyspnea, wheezes, hemoptysis, stridor Gastrointestinal: Denies: abdominal pain, nausea, vomiting, diarrhea, constipation, hematemesis, melena, hematochezia Genitourinary: Denies: urgency, dysuria, frequency, hematuria Musculoskeletal: Denies: back pain, neck pain, arthralgia, myalgia Integumentary: Denies: rash, abrasion, lesions Neurological: Denies: headache, weakness, numbness, paresthesias, confusion, abnormal gait, vertigo Psychiatric: Denies: anxiety, depression, suicidal thoughts, homicidal thoughts , auditory hallucinations, visual hallucinations Endocrine: Denies: fatigue Hematological/Lymphatic: Denies: easy bleeding, easy bruising Allergic/Immunologic: Denies: facial swelling, urticaria Chest Pain PMH - Past Medical History Medical history: Reports: arthritis, CHF, COPD, coronary artery disease, GERD, hyperlipidemia, hypertension, myocardial infarction Surgical history: Reports: no surgical history, angioplasty/stent, coronary bypass (CABG) Psychiatric history: Reports: depression - Social History Smoking Status: Current every day smoker Alcohol use: Reports: none Drug use: Reports: none Physical Exam - General Limitations: no limitations General appearance: alert, in no apparent distress - Head Head exam: atraumatic, normocephalic, normal inspection - Eye Eye exam: Present: normal appearance, PERRL, EOMI - ENT ENT exam: normal exam, normal oropharynx, mucous membranes moist - Neck Neck exam: Present: normal inspection, full ROM, trachea midline - Chest Chest inspection: Present: normal inspection, symmetric chest wall rise - Respiratory Respiratory exam: Present: normal lung sounds bilaterally - Cardiovascular Cardiovascular exam: Present: regular rate, normal rhythm, normal heart sounds - Abdominal Exam Abdominal exam: Present: soft, Non-Tender. Absent: tenderness, distention, guarding, rebound, rigidity - Extremities Exam Extremities exam: Present: normal inspection, full ROM. Absent: tenderness, pedal edema - Expanded Lower Extremity Exam Neurovascular/Tendon exam: Absent: motor deficit, sensory deficit, tendon deficit Gait: not tested/not observed - Back Exam Back exam: Present: normal inspection, full ROM. Absent: tenderness - Neurological Exam Neurological exam: Present: alert, oriented X3 - Psychiatric Psychiatric exam: Present: normal affect, normal mood - Skin Skin exam: Present: warm, dry, intact, normal color Course - Reevaluation(s) Reevaluation #1: Patient is having intermittent chest pain currently now complaining of pain again. We will give him some IV nitroglycerin and Zofran. Time: 16:01 - Consultations Consultation #1: Discussed with Dr. Rosales cardiology he will see the patient in consult. Time: 15:44 Consultation #2: Discussed with , admit. Time: 16:01 Vital Signs Temperature 97.4 F L 12/16/17 14:38 Pulse Rate 68 12/16/17 14:38 Respiratory Rate 14 12/16/17 14:38 Blood Pressure 126/88 12/16/17 14:38 O2 Sat by Pulse Oximetry 97 12/16/17 14:38 Temperature 97.4 F L 12/16/17 14:38 Pulse Rate 59 12/16/17 15:45 Respiratory Rate 20 12/16/17 15:45 Blood Pressure 119/70 12/16/17 15:45 O2 Sat by Pulse Oximetry 94 12/16/17 15:45 Oxygen Delivery Oxygen Delivery Room Air Chest Pain - Lab Data Result diagrams: 12/16/17 14:44 12/16/17 14:44 Lab Results 12/16/17 12/16/17 12/16/17 Range/Units 14:34 14:44 14:44 WBC 8.9 (4.3-11.1) K/mcL RBC 5.13 (4.19-5.50) M/mcL Hgb 14.9 (12.9-16.9) g/dL Hct 45.6 (37.5-50.1) % MCV 88.9 (83.0-100.0) fL MCH 29.0 (28.0-33.3) pg MCHC 32.7 (31.6-35.5) g/dL RDW 14.3 (11.5-14.5) % Plt Count 271 (140-400) K/mcL MPV 8.9 L (9.4-12.4) fL Immature Gran % 0.2 (0-4) % Seg Neutrophils % 49.1 % Lymphocytes % 31.8 % Monocytes % 11.8 % Eosinophils % 6.2 % Basophils % 0.9 % Neutrophils # 4.4 (1.6-8.9) K/mcL Lymphocytes # 2.8 (0.6-4.6) K/mcL Monocytes # 1.1 (0.0-1.3) K/mcL Eosinophils # 0.6 (0.0-0.6) K/mcL Basophils # 0.1 (0.0-0.2) K/mcL PT 11.5 (9.4-12.1) Seconds INR 1.1 APTT 31.2 (26.0-36.0) Seconds Sodium 134 L (136-145) mEq/L Potassium 4.4 (3.5-5.1) mEq/L Chloride 101 (98-107) mEq/L Carbon Dioxide 26 (23-29) mEq/L BUN 23 (8-23) mg/dL Creatinine 1.28 (0.70-1.30) mg/dL Est GFR ( Amer) > 60 (> 60) Est GFR (Non-Af Amer) 57 L (> 60) BUN/Creatinine Ratio 18 (6-26) Glucose 89 (70-105) mg/dL Calculated Osmolality 281 (280-300) Calcium 9.4 (8.6-10.3) mg/dL Troponin I < 0.03 (< 0.04) ng/mL - EKG Data EKG attestation: Yes I reviewed and interpreted this EKG. EKG shows normal: sinus rhythm Rate: normal Rhythm: NSR [place]/QRS: normal T wave inversions noted in: I, II, aVR, v2, v3, v4, v5, v6 Interpretation: other (New T-wave inversion in the anterior lateral leads. Also inferior) Heart Score - Score History: Highly Suspicious EKG: Non Specific repolarisation Disturbance Age: 45-65 Risk Factors: Equal/Greater than 3 risk factor or history of atherosclerotic disease Troponin: Less than normal limit HEART Score Total: 6 Critical Care Time Critical Care Time: Yes Total Critical Care Time: 45 Attestation: The high probability of a clinically significant, sudden or life threatening deterioration of the [cardiovascular] system(s) required my full and direct attention, intervention and personal management. The aggregate critical care time was [45] minutes. This time is in addition to time spent performing reported procedures but includes the following: [x] Data Review and interpretation [x] Patient assessment and monitoring of vital signs [x] Documentation [x] Medication orders and management
[2017-12-16] MEDS ORDERED: *HR* Heparin 5,000 UNIT/ML VIAL IVP ONE (14:44)
[2017-12-16] MEDS ORDERED: *HR* Heparin 5,000 UNIT/ML VIAL IVP PRN ×2 (14:44)
[2017-12-16] MEDS ORDERED: Heparin 25,000 UNIT/500 ML D5W 25,000 UNIT/500 ML BAG IVC SCH (14:45)
[2017-12-16] MEDS ORDERED: Nitroglycerin 25 MG/250 ML INFUS..BTL IVC SCH (14:45)
[2017-12-16 14:57] LABS: Basophils # 0.1 K/mcL (0.0-0.2); Basophils % 0.9 %; Eosinophils # 0.6 K/mcL (0.0-0.6); Eosinophils % 6.2 %; Hematocrit 45.6 % (37.5-50.1); Hemoglobin 14.9 g/dL (12.9-16.9); Immature Granulocytes % 0.2 % (0-4); Lymphocytes # 2.8 K/mcL (0.6-4.6); Lymphocytes % 31.8 %; Mean Corpuscular HGB Conc 32.7 g/dL (31.6-35.5); Mean Corpuscular Volume 88.9 fL (83.0-100.0); Mean Platelet Volume 8.9 fL (9.4-12.4); Monocytes # 1.1 K/mcL (0.0-1.3); Monocytes % 11.8 %; Neutrophils # 4.4 K/mcL (1.6-8.9); Platelet Count 271 K/mcL (140-400); Red Blood Count 5.13 M/mcL (4.19-5.50); Red Cell Distribution Width 14.3 % (11.5-14.5); Segmented Neutrophils % 49.1 %
[2017-12-16 15:05] LABS: INR 1.1; Prothrombin Time 11.5 Seconds (9.4-12.1)
[2017-12-16 15:08] LABS: Activated Partial Thrombo Time 31.2 Seconds (26.0-36.0)
[2017-12-16 15:15] LABS: BUN/Creatinine Ratio 18 (6-26); Blood Urea Nitrogen 23 mg/dL (8-23); Calcium 9.4 mg/dL (8.6-10.3); Carbon Dioxide 26 mEq/L (23-29); Chloride 101 mEq/L (98-107); Glucose 89 mg/dL (70-105); Osmolality,Calculated 281 (280-300); Potassium 4.4 mEq/L (3.5-5.1); Sodium 134 mEq/L (136-145); Troponin I < 0.03 ng/mL (< 0.04); eGFR For African Americans > 60 (> 60); eGFR For Non-African Americans 57 (> 60)
[2017-12-16] MEDS ORDERED: Ondansetron 4 MG/2 ML VIAL IVP ONE (15:57)
[2017-12-16] MEDS ORDERED: *HR* Morphine 2 MG/ML SYRINGE IVP ONE (15:57)
[2017-12-16] MEDS ORDERED: Ipratropium/Albuterol Neb 3 ML IH PRN (16:32)
[2017-12-16] MEDS ORDERED: Acetaminophen 325 MG TABLET PO PRN (16:32)
[2017-12-16] MEDS ORDERED: Ondansetron 4 MG/2 ML VIAL IVP PRN (16:36)
[2017-12-16] MEDS ORDERED: OXYCODONE Oral CONC 10 MG/0.5 ML ORAL.SYG SL PRN (16:36)
[2017-12-16] MEDS ORDERED: Naloxone 0.4 MG/ML INJ IVP PRN (16:36)
--- NOTE | 2017-12-16 16:43 | Internal Med History&Physical ---
Date of Encounter: 12/16/17 Time of Encounter: 16:40 Internal Medicine - H&P: HPI Chief complaint: Chest pain Admitted From: Emergency Dept History of present illness: Mr. Blake is a 62 year old male with a past medical history of CAD status post stents and CABG, hypertension, hyperlipidemia, COPD not oxygen dependent , discharge from this hospital in June 2017, was sent from Dr. Shabazz's office complaining of chest pain that has been going on and off for the past week. Midsternal with no radiation improved after being started of nitroglycerin in down to a 2 out of 10. EKG showed old T-wave inversions on the anterior and lateral leads but no T-wave inversions in the inferior leads. Troponin 0.03 chest x-rays unremarkable sodium is 134. Patient is in discomfort complaining of nausea and diaphoresis. He was started on a heparin drip, nitroglycerin drip and was loaded with Plavix. Cardiology will evaluate this patient Past Med Surg Social Fam HX - Past Medical History Medical history: arthritis, CHF (Systolic), COPD (Not oxygen dependent), coronary artery disease, GERD, hyperlipidemia, hypertension, myocardial infarction (CABG, history of stents) Additional medical history: depression, chronic low back pain, s/p neck mass, lung nodules, sialadenitis, lymphadenitis, dyslipidemia, unstable angina, degenerative disease spine, congestive heart failure, shortness of breath, dizziness, fatigue, heart stents aug 2014, hx of cabg, tobacco abuse, loop recorder Psychiatric history: depression - Past Surgical History Surgical History: no surgical history, angioplasty/stent, coronary bypass (CABG) Additional surgical history: loop recorder insertion-07/2015, - Social History Smoking Status: Former smoker Smokeless Tobacco Status: Yes Alcohol use: none Drug use: none - Family History Father Hx Family Cardiac Disorders: Yes Brother Hx Family Cardiac Disorders: Yes ([place]) Mother Living Status: Hx Family Cardiac Disorders: Yes ([place]) Hx Family Respiratory Disorders: No Hx Family Cancer: Yes Hx Family GI Disorders: No Hx Family Endocrine Disorder: Yes Hx Family Neuromuscular Disorders: No Hx Family Neurologic Disorders: Yes Hx Family HEENT Disorders: No Hx Family Autoimmune Disorders: No - Additional Family History Additional family history: Mother and brother with history of MIs Internal Medicine - H&P: Meds Atorvastatin [Lipitor] 40 mg PO HS 05/29/16 [History] Carvedilol 12.5 mg PO BID 05/29/16 [History] Clopidogrel [Plavix] 75 mg PO DAILY 05/29/16 [History] Lisinopril [Zestril] 10 mg PO DAILY 05/29/16 [History] Nitroglycerin [Nitrostat] 0.4 mg SL Q5M PRN 05/29/16 [History] OxyCODONE Immed Rel [Roxicodone 10 MG] 10 mg PO TID PRN 05/29/16 [History] Pantoprazole Sodium [Protonix] 40 mg PO BID 05/29/16 [History] Quetiapine Fumarate [Seroquel Xr] 50 mg PO BID 05/29/16 [History] Ranolazine [Ranexa] 1,000 mg PO BID 05/29/16 [History] Venlafaxine HCl [Venlafaxine HCl ER] 150 mg PO DAILY 05/29/16 [History] Aspirin 325 mg PO DAILY 08/16/16 [History] 3 Allergy/AdvReac Type Severity Reaction Status Date / Time No Known Allergies Allergy Verified 10/07/17 11:12 All Systems PM: A 10-system review of systems was performed and is negative for pertinent findings except as documented above in the HPI. Review of systems: Chest tightness, other systems out of the 10 reviewed were negative - Constitutional Vitals: Temp Pulse Resp BP Pulse Ox 97.4 F L 67 20 117/72 97 12/16/17 14:38 12/16/17 16:15 12/16/17 16:15 12/16/17 16:15 12/16/17 16:15 General appearance: Present: A&O X 3 - Head Head exam: Present: atraumatic, normocephalic - Eye Eye exam: Present: PERRL, conjuntiva pink, sclera anicteric Pupils: Present: PERRL - Neck Neck exam general surgery: Present: supple, trachea midline. Absent: lymphadenopathy - Respiratory Respiratory exam: Present: CTAB. Absent: accessory muscle use, rales, rhonchi, wheezes - Cardiovascular Cardiovascular exam: Present: RRR, +S1, +S2. Absent: diastolic murmur, gallop, rubs, systolic murmur - GI/Abdominal GI/Abdominal exam: Present: normal bowel sounds, soft, no peritoneal signs. Absent: distended, tenderness - Extremities Exam Extremities exam: Present: warm, radial pulses palpable and symmetrical. Absent : calf tenderness, cyanotic, pedal edema - Neurological Exam Neurological exam: Present: CN II-XII intact, oriented X3, no focal deficits. Absent: pronater drift, facial droop, speech deficit - Skin Skin exam: Present: dry, intact Internal Med - H&P Results - Labs CBC & Chem 7: 12/16/17 14:44 12/16/17 14:44 Labs: Short CBC 12/16/17 Range/Units 14:44 WBC 8.9 (4.3-11.1) K/mcL Hgb 14.9 (12.9-16.9) g/dL Hct 45.6 (37.5-50.1) % Plt Count 271 (140-400) K/mcL Neutrophils # 4.4 (1.6-8.9) K/mcL BMP 12/16/17 14:44 Sodium 134 L Potassium 4.4 Chloride 101 Carbon Dioxide 26 BUN 23 Creatinine 1.28 Glucose 89 Calcium 9.4 Cardiac Enzymes 12/16/17 Range/Units 14:44 Troponin I < 0.03 (< 0.04) ng/mL - Impressions ITS Impressions Chest X-Ray 12/16/17 14:34 IMPRESSION: No acute abnormality D/ / Adi Bentley MD / Adi Bentley MD Interpreting Provider: Adi Bentley MD - Assessment and plan (1) Unstable angina pectoris Current Visit: Yes Status: Acute Assessment and plan: Unstable angina Continue heparin and nitroglycerin drips Coreg, aspirin, Plavix, Lipitor, check lipid panel Cardiology consulted Telemetry, troponins Limited echocardiogram Omeprazole for GI prophylaxis and heparin drip for DVT prophylaxis. The patient will be admitted as inpatient, expected to stay [place] midnights. Full code. Time spent on this admission 40 minutes (2) CAD (coronary artery disease) Current Visit: No Status: Chronic Qualifiers: Coronary Disease-Associated Artery/Lesion type: bypass graft [place] vs. transplanted heart: [place] heart Associated angina: with stable angina Qualified Code(s): I25.708 - Atherosclerosis of coronary artery bypass graft(s) , unspecified, with other forms of angina pectoris (3) HTN (hypertension) Current Visit: No Status: Chronic Qualifiers: Hypertension type: essential hypertension Qualified Code(s): I10 - Essential (primary) hypertension (4) Nicotine addiction Current Visit: No Status: Chronic Assessment and plan: The patient said he quit smoking Qualifiers: Nicotine product type: cigarettes Substance use status: uncomplicated Qualified Code(s): F17.210 - Nicotine dependence, cigarettes, uncomplicated (5) Systolic CHF Current Visit: No Status: Chronic Assessment and plan: Stable, no exacerbation Qualifiers: Qualified Code(s): I50.22 - Chronic systolic (congestive) heart failure (6) Hyponatremia Current Visit: Yes Status: Acute Assessment and plan: Monitor - Time Spent With Patient Total time spent is greater than 50% in coordination of care (as documented) at patient's floor/unit and/or counseling patient:
[2017-12-16] MEDS: Ranolazine 500 MG TAB.ER.12H PO SCH (20:47)
[2017-12-16] MEDS: *HR* OxyCODONE Immed Rel 5 MG TABLET PO PRN (20:47)
[2017-12-16] MEDS: 0.9 % Sodium Chloride 1,000 ML IVC SCH (20:50)
[2017-12-16] MEDS ORDERED: Capsaicin 0.025% 60 GM TUBE TP PRN (21:35)
[2017-12-16 21:41] LABS: Basophils # 0.1 K/mcL (0.0-0.2); Basophils % 0.9 %; Eosinophils # 0.5 K/mcL (0.0-0.6); Eosinophils % 6.7 %; Hematocrit 42.1 % (37.5-50.1); Hemoglobin 14.2 g/dL (12.9-16.9); Immature Granulocytes % 0.4 % (0-4); Lymphocytes # 2.6 K/mcL (0.6-4.6); Lymphocytes % 32.3 %; Mean Corpuscular HGB Conc 33.7 g/dL (31.6-35.5); Mean Corpuscular Hemoglobin 29.5 pg (28.0-33.3); Mean Corpuscular Volume 87.5 fL (83.0-100.0); Mean Platelet Volume 8.7 fL (9.4-12.4); Monocytes % 11.8 %; Neutrophils # 3.8 K/mcL (1.6-8.9); Platelet Count 257 K/mcL (140-400); Red Blood Count 4.81 M/mcL (4.19-5.50); Red Cell Distribution Width 14.3 % (11.5-14.5); Segmented Neutrophils % 47.9 %
[2017-12-16 21:56] LABS: INR 1.1
[2017-12-16 22:07] LABS: BUN/Creatinine Ratio 20 (6-26); Blood Urea Nitrogen 22 mg/dL (8-23); Carbon Dioxide 24 mEq/L (23-29); Chloride 104 mEq/L (98-107); Glucose 99 mg/dL (70-105); Osmolality,Calculated 283 (280-300); Sodium 135 mEq/L (136-145); eGFR For African Americans > 60 (> 60); eGFR For Non-African Americans > 60 (> 60)
[2017-12-16 23:54] LABS: Activated Partial Thrombo Time 56.6 Seconds (26.0-36.0)
[2017-12-17 04:37] LABS: BUN/Creatinine Ratio 19 (6-26); Blood Urea Nitrogen 21 mg/dL (8-23); Calcium 8.4 mg/dL (8.6-10.3); Carbon Dioxide 23 mEq/L (23-29); Chloride 107 mEq/L (98-107); Cholesterol 91 mg/dL (< 200); Glucose 135 mg/dL (70-105); HDL Cholesterol 23 mg/dL (40-59); LDL Cholesterol,Calculated 51 mg/dL (0-99); Osmolality,Calculated 285 (280-300); Sodium 135 mEq/L (136-145); Triglycerides 85 mg/dL (< 150); eGFR For African Americans > 60 (> 60); eGFR For Non-African Americans > 60 (> 60)
[2017-12-17] MEDS: *HR* OxyCODONE Immed Rel 5 MG TABLET PO PRN ×2 (05:56→21:53)
[2017-12-17] MEDS: Venlafaxine XR (24 HR) 150 MG CAP.ER.24H PO SCH (09:46)
[2017-12-17] MEDS: Aspirin Enteric Coated 81 MG Tablet PO SCH (09:47)
[2017-12-17] MEDS: Ranolazine 500 MG TAB.ER.12H PO SCH ×2 (09:47→21:50)
[2017-12-17] MEDS: OXYCODONE Oral CONC 10 MG/0.5 ML ORAL.SYG SL PRN (10:19)
[2017-12-17] MEDS: 0.9 % Sodium Chloride 1,000 ML IVC SCH ×2 (10:24→18:08)
--- NOTE | 2017-12-17 13:07 | Cardiology Consult Note ---
<Dina Gallardo - Last Filed: 12/17/17 13:10> Date of Encounter: 12/17/17 Time of Encounter: 12:00 Assessment and Plan (1) Unstable angina pectoris Current Visit: Yes Status: Acute Per cardiology: -Symptoms concerning for unstable angina. -Continued symptoms at rest. -On nitro drip, chest pain still 4/10. On heparin drip -Significant CAD history. -ECG with new T wave inversions leads III, V1. -Troponins negative x3. -With ongoing chest pain, despite nitro drip, recommend LHC. Risks versus benefits of LHC explained to patient and family. Patient states understanding and agreeable to proceed. -Further recommendations pending LHC. (2) Ischemic cardiomyopathy Current Visit: Yes Status: Resolved Per cardiology: -Known ICM. -TTE with LVEF 45%, global hypokinesis. -TTE 06/15/2017: LVEF 40%. Mildly dilated left surgical. Mild diastolic dysfunction. Atypical septal motion consistent with postoperative status. Normal RV size and function. The basal to mid inferior and inferolateral segments were hypokinetic. No significant valvular dysfunction. -ON BB. -Euvolemic on exam. -Consider addition of gio/arb prior to discharge. (3) CAD (coronary artery disease) Current Visit: No Status: Chronic Per cardiology: -Known significant CAD history. -[facility] 07/01/2017 ([facility]): Severe 3V CAD. LAD ostial 100%. RCA mid 100%. OM1 proximal patent stent, then 100% stenosis. SVG to OM2 occluded. SVG to D1 occluded. SVG to dRCA patent with 95% in-stent restenosis of dRCA distal to SVG instertion. LVEDP nl. DENNY x1 in dRCA (final stenosis 0%). -On asa, statin, BB, plavix. Denies missed doses of asa or plavix. -Plan for LHC today. Qualifiers: Coronary Disease-Associated Artery/Lesion type: bypass graft [place] vs. transplanted heart: [place] heart Associated angina: with unstable angina Qualified Code(s): I25.700 - Atherosclerosis of coronary artery bypass graft(s) , unspecified, with unstable angina pectoris Discussion w patient/family: The assessment and plan as outlined above was discussed with the patient and/or family members who expressed understanding and agreement. All questions were answered. Thank you for involving us in the care of your patient. Please call with any questions. Discussed and reviewed with . History of Present Illness Consult date: 12/16/17 Requesting physician: Will Alvarado Consult reason: unstable angina Chief complaint: chest pain History of present illness: Mr. Blake is a 62 year old male with a relevant past medical history of depression, HLD, CAD s/p CABG and multiple PCIs, [place], COPD, HTN, GERD, ICM who presented to outpatient cardiology visit and complained of chest pain. Patient was recommended for ER evaluation. Patient reports chest pressure for one week. Reports worsened with exertion and lessened with nitro. Reports increased shortness of breath. Reports current chest pressure rates 4/10. Past Med Surg Social Fam HX - Past Medical History Attestation: Yes The following information was validated with the patient. Source: patient, old records reviewed Medical history: arthritis, cardiomyopathy, CHF, COPD, coronary artery disease, GERD, hyperlipidemia, hypertension, myocardial infarction Additional medical history: depression, chronic low back pain, s/p neck mass, lung nodules, sialadenitis, lymphadenitis, dyslipidemia, unstable angina, degenerative disease spine, congestive heart failure, shortness of breath, dizziness, fatigue, heart stents aug 2014, hx of cabg, tobacco abuse, loop recorder Psychiatric history: depression - Past Surgical History Surgical History: no surgical history, angioplasty/stent, coronary bypass (CABG) Additional surgical history: loop recorder insertion-07/2015, - Social History Smoking Status: Former smoker Smokeless Tobacco Status: Yes Alcohol use: none Drug use: none - Family History Father Age at : 78 Cause of : heart attack Hx Family Cardiac Disorders: Yes Brother Name: Rashid Age: 51 Hx Family Cardiac Disorders: Yes ([place]) Mother Living Status: Age at : 43 Cause of : heart attack Hx Family Cardiac Disorders: Yes ([place]) Hx Family Respiratory Disorders: No Hx Family Cancer: Yes Hx Family GI Disorders: No Hx Family Endocrine Disorder: Yes Hx Family Neuromuscular Disorders: No Hx Family Neurologic Disorders: Yes Hx Family HEENT Disorders: No Hx Family Autoimmune Disorders: No Medications and Allergies Atorvastatin [Lipitor] 40 mg PO HS 05/29/16 [History] Carvedilol 12.5 mg PO BID 05/29/16 [History] Clopidogrel [Plavix] 75 mg PO DAILY 05/29/16 [History] Lisinopril [Zestril] 10 mg PO DAILY 05/29/16 [History] Nitroglycerin [Nitrostat] 0.4 mg SL Q5M PRN 05/29/16 [History] OxyCODONE Immed Rel [Roxicodone 10 MG] 10 mg PO TID PRN 05/29/16 [History] Pantoprazole Sodium [Protonix] 40 mg PO BID 05/29/16 [History] Quetiapine Fumarate [Seroquel Xr] 50 mg PO BID 05/29/16 [History] Ranolazine [Ranexa] 1,000 mg PO BID 05/29/16 [History] Venlafaxine HCl [Venlafaxine HCl ER] 150 mg PO DAILY 05/29/16 [History] Aspirin 325 mg PO DAILY 08/16/16 [History] 3 Allergy/AdvReac Type Severity Reaction Status Date / Time No Known Allergies Allergy Verified 10/07/17 11:12 All Systems Review: The remainder of the systems were reviewed and are negative - Cardiovascular Cardiovascular: as per HPI, chest pain at rest, chest pain with exertion, dyspnea on exertion Physical Examination Vital Signs, Last 4 Hours Temp Pulse Resp BP Pulse Ox 12/17/17 11:24 97.7 F 78 16 104/69 94 General: Conversant, No Apparent Distress, Other (Diaphoretic. ) HEENT: Atraumatic, Normocephaly, Mucus Membranes Moist Neck: No JVD, Normal carotid pulses Cardiac: Reg Rate and Rhythm, Normal S1 and S2, No Murmur Lungs: Normal Breath Sounds, No Wheeze, Rales, Rhonchi Neuro: Alert and responsive, No focal deficits noted Abdomen: Soft, Non-Tender Skin: No rashes noted on visualized skin Musculoskeletal: No Chest Wall Tenderness Extremities: No Clubbing, No Cyanosis, No Edema, Normal Pulses Results 12/16/17 21:24 12/17/17 03:24 Lab Results Impressions Chest X-Ray 12/16/17 14:34 IMPRESSION: No acute abnormality D/ / Adi Bentley MD / Adi Bentley MD Interpreting Provider: Adi Bentley MD Echocardiogram Limited Views 12/16/17 16:45 Impressions: LVEF 45%. Mild global LV systolic dysfunction. Borderline mildly dilated left ventricle. Normal right ventricular structure and function. Left Ventricular Wall Motion: Rest Echo Findings The apex, apical inferior, mid inferior, basal inferior, apical anterior, mid anterior, basal anterior, apical septal, mid inferior septal, basal inferior septal, apical lateral, mid anterior lateral, basal anterior lateral, mid anterior septal, mid inferior lateral, basal anterior septal and basal inferior lateral issa were hypokinetic. Findings: Study Quality * Technically adequate exam. ECG Findings * Normal sinus rhythm. Left Ventricle * LVEF 45%. * Borderline mildly dilated left ventricle. Right Ventricle * Normal right ventricular structure and function. Aorta * Normally sized aortic root. Active Medications Acetaminophen (Tylenol) 650 mg PO Q4HR PRN PRN Reason: fever and mild pain Stop: 06/17/18 16:33 Last Admin: 12/17/17 12:46 Dose: 650 mg Albuterol/Ipratropium (Duoneb) 3 ml IH [id number] PRN; Protocol PRN Reason: Shortness Of Breath/Wheezing Stop: 06/17/18 16:33 Aspirin (Aspirin Ec) 81 mg PO DAILY [facility] Stop: 06/18/18 09:01 Last Admin: 12/17/17 09:47 Dose: 81 mg Atorvastatin Calcium (Lipitor) 80 mg PO HS [facility] Stop: 06/17/18 21:01 Last Admin: 12/16/17 20:47 Dose: 80 mg Carvedilol (Coreg) 12.5 mg PO BIDWM TARAN Stop: 06/17/18 18:01 Last Admin: 12/17/17 09:46 Dose: 12.5 mg Clopidogrel Bisulfate (Plavix) 75 mg PO DAILY [facility] Stop: 06/18/18 09:01 Last Admin: 12/17/17 09:46 Dose: 75 mg Heparin Sodium (Porcine) (Heparin) 4,000 unit IVP Q6HR PRN PRN Reason: SEE COMMENTS Stop: 06/17/18 14:45 Heparin Sodium (Porcine) (Heparin) 2,000 unit IVP Q6H PRN PRN Reason: SEE COMMENTS Stop: 06/17/18 14:45 Last Admin: 12/17/17 00:43 Dose: 2,000 unit Nitroglycerin (Nitroglycerin Premix 25 Mg/250 Ml) 25 mg in 250 mls @ 3 mls/hr IVC .Q24H [facility] PRN Reason: 5 MCG/MIN Stop: 06/17/18 14:46 Last Infusion: 12/17/17 11:42 Dose: 20 mcg/min, 12 mls/hr Heparin Sodium/Dextrose (Heparin 25,000 Unit/500 Ml D5w) 25,000 unit in 500 mls @ 21.119 mls/hr IVC .[id number] TARAN; 12 UNIT/KG/HR PRN Reason: Protocol Stop: 06/17/18 14:46 Last Titration: 12/17/17 00:43 Dose: 14 unit/kg/hr, 24.639 mls/hr Sodium Chloride (0.9 % Sodium Chloride) 1,000 mls @ 75 mls/hr IVC .[id number] [facility] Stop: 12/17/17 19:24 Last Admin: 12/17/17 10:24 Dose: 75 mls/hr Naloxone HCl (Narcan) 0.4 mg IVP Q2MIN PRN PRN Reason: SEE COMMENTS Stop: 06/17/18 16:37 Omeprazole (Prilosec) 40 mg PO DAILY@0630 [facility] PRN Reason: Protocol Stop: 06/18/18 06:31 Last Admin: 12/17/17 05:53 Dose: 40 mg Ondansetron HCl (Zofran) 4 mg IVP Q8HR PRN PRN Reason: Nausea And Vomiting Stop: 06/17/18 16:37 Oxycodone HCl (Roxicodone) 10 mg PO TID PRN PRN Reason: Severe Pain Last Admin: 12/17/17 05:56 Dose: 10 mg Oxycodone HCl (Oxycodone Oral Conc) 5 mg SL Q4H PRN; Protocol PRN Reason: mild to moderate pain Stop: 06/17/18 16:37 Last Admin: 12/17/17 10:19 Dose: 5 mg Oxycodone HCl (Oxycodone Oral Conc) 10 mg SL Q4H PRN; Protocol PRN Reason: Severe Pain Stop: 06/17/18 16:37 Last Admin: 12/17/17 12:46 Dose: 10 mg Quetiapine Fumarate (Seroquel) 50 mg PO BID [facility] Stop: 06/17/18 21:01 Last Admin: 12/17/17 09:47 Dose: 50 mg Ranolazine (Ranexa) 1,000 mg PO BID [facility] Stop: 06/17/18 21:01 Last Admin: 12/17/17 09:47 Dose: 1,000 mg Venlafaxine HCl (Effexor Xr) 150 mg PO DAILY [facility] PRN Reason: Protocol Stop: 06/18/18 09:01 Last Admin: 12/17/17 09:46 Dose: 150 mg Laboratory Tests 12/16/17 12/16/17 12/16/17 14:44 14:44 21:24 Hgb 14.9 Creatinine Troponin I < 0.03 < 0.03 12/17/17 12/17/17 12/17/17 03:24 03:24 08:36 Hgb Creatinine 1.12 Troponin I < 0.03 < 0.03 - Imaging and Cardiology Chest Xray: report reviewed Echo: report reviewed Cardiac cath: report reviewed - EKG Interpretation EKG results cardiology: personally reviewed (ECG with SR, New T wave inversions leads III, V1.), other (Telemetry reviewed with average HR previous 12 hours noted to be 80, SR. PVCs and PACs noted.) Consult Discharge Plan - Plan Referrals: Isabelle Redman, [employer]STRUCTION WORK[employer] [Primary Care Provider] - <Bhavik Rosales - Last Filed: 12/17/17 15:11> Date of Encounter: 12/17/17 - Attending Attestation I have personally performed a face to face evaluation on this patient. I have reviewed and agree with the care plan. History and Exam by me shows: Pt presents with ongoing chest pain, now 4/10, improves for several hours, then returns, has not been completely pain free this admission. He notes chest pain more severe when tried to use bathroom, improved with sitting, then lying back down ROS: ten systems reviewed positives in HPI PE: agree with above, with addition pt is mildly diaphoretic IMP/plan: 1. ACS, ongoing chest pain consistent with previous anginal symptoms, not responding to medical tx, long converstation with pt, and son at bedside, will proceed with urgent LHC/possible. 2. Severe triple vessel dx., with known failed SVG to OM1 and SVG to D1, patent SVG to LAD and RCA, recent PCi with DENNY SVG to RCA, previous PCI with DENNY LMT, Proximal Cx, Assessment and Plan Discussion w patient/family: The assessment and plan as outlined above was discussed with the patient and/or family members who expressed understanding and agreement. All questions were answered. Thank you for involving us in the care of your patient. Please call with any questions. History of Present Illness History of present illness: Mr. Blake is a 62 year old male All Systems Review: The remainder of the systems were reviewed and are negative Physical Examination Vital Signs, Last 4 Hours Temp Pulse Resp BP Pulse Ox 12/17/17 11:24 97.7 F 78 16 104/69 94 Results 12/16/17 21:24 12/17/17 03:24 Lab Results 12/16/17 12/16/17 12/16/17 21:24 21:24 21:24 WBC 8.0 Hgb 14.2 Hct 42.1 Plt Count 257 INR 1.1 APTT 56.6 H D Sodium 135 L Potassium 4.0 Chloride 104 Carbon Dioxide 24 BUN 22 Creatinine 1.11 Glucose 99 Calcium 9.0 Troponin I 12/16/17 12/17/17 12/17/17 21:24 03:24 03:24 WBC Hgb Hct Plt Count INR APTT Sodium 135 L Potassium 4.0 Chloride 107 Carbon Dioxide 23 BUN 21 Creatinine 1.12 Glucose 135 H Calcium 8.4 L Troponin I < 0.03 < 0.03 12/17/17 12/17/17 06:48 08:36 WBC Hgb Hct Plt Count INR APTT 66.4 H Sodium Potassium Chloride Carbon Dioxide BUN Creatinine Glucose Calcium Troponin I < 0.03
[2017-12-17] MEDS ORDERED: ISOVUE-370 200 ML INFUS..BTL IV ONE (13:53)
[2017-12-17] MEDS ORDERED: 0.9 % Sodium Chloride 1,000 ML ONE (13:53)
[2017-12-17] MEDS ORDERED: *HR* Heparin 10,000 UNIT/10 ML VIAL ONE (13:53)
[2017-12-17] MEDS ORDERED: Nitroglycerin 1,000 MCG/10 ML VIAL IV ONE (13:53)
[2017-12-17] MEDS ORDERED: Heparin 1,000 UNITS/500 mL 500 ML ONE (13:53)
[2017-12-17] MEDS ORDERED: *HR* Midazolam HCl 2 MG/2 ML VIAL ONE (14:18)
--- NOTE | 2017-12-17 14:23 | Pre-Sedation Evaluation ---
Pre-sedation evaluation - Pre-sedation checklist Date of procedure: 12/17/17 Procedure: heart cath Recent Vitals: Last Vital Signs Temp 97.7 F 12/17/17 11:24 Pulse 78 12/17/17 11:24 Resp 16 12/17/17 11:24 BP 104/69 12/17/17 11:24 Pulse Ox 94 12/17/17 11:24 H&P (including ROS) documented in medical record: Yes Previous reaction to sedatives/anesthetics: No Dietary Status: NPO after Midnight Airway Assessment: Patient can open mouth completely, TMJ function normal Dentition: No loose teeth or bridges Possible difficult airway: No ASA Classification *see protocol: CLASS IV-Severe systemic disease/constant threat to pt's life Plan of Care: Pt appropriate candidate for procedure/moderate/conscious sedation , Risks/benefits of procedure/sedation discussed w/ patient/family, If not NPO; Risk of intake outweiged by necessity to perform procedure
[2017-12-17] MEDS ORDERED: *HR* Morphine 2 MG/ML SYRINGE ONE (15:00)
--- NOTE | 2017-12-17 16:11 | Invasive Diagnostic Lab Proc ---
Name: Sagar Blake Date of Study: 12/17/2017 Date: 1955 Ht: 72.0in Medical Record#: [id number] Age: 62 Wt: 194.45lb Gender: Male BSA: 2.11 Order #: [id number] BMI: 26.34 Physicians Procedure Physician: Bhavik Rosales DO Referring MD: Referring MD: Staff Name Position Time In LuceroJaguar RN Monitor 02:19 PM Ross Zafar RN Operations Welder 02:19 PM Yessenia Cortez RT (R) Scrub 02:19 PM Indications Indication Unstable Angina Procedures Performed Procedure L HRT ART/GRFT ANGIO PRQ CARD DENNY STENT W/ANGIO 1 VSL Pre-Procedure Checklist Informed consent is complete signed and on chart. H&P is on chart. ID band is on and ID verified with patient. Patient NPO for procedure The procedure was described for the patient and questions were answered. ECG is on chart. Plan of Care Patient will tolerate the procedure without complications. Adequate level of comfort will be maintained. Hemodynamics will remain stable Patient will recover from procedure without complications. Respiratory function will be maintained. Cardiac rhythm will remain stable. Patient temperature will be maintained. Patient and/or family have verbalized understanding of the procedure. Patient Education Chief Complaint/Reason for Test: Cardiac Cath Developmental Category: Adult (18-64 years) Developmentally Appropriate for Age: Yes Learning Barriers: None Education Needs: Procedure Education Method: Verbal Information Taught: Cardiac Cath Educational Evaluation: Able to repeat information Intravenous Access Time IV Size Location DC'd Fluid/Drip Rate Units RN 18g 1 1/4" Patent On Arrival Rt Arm Ross Zafar RN 20g 1 1/4" Patent On Arrival Lt Antecubital Ross Zafar RN Allergies No Known Allergies Vital Signs Time BP (mmHg) HR (bpm) O2 Sat. RR (bpm) LOC 02:20 PM / % 5 = Fully awake and oriented or at pre-proc level 02:20 PM / % 4 = Oriented but drowsy 02:22 PM 134 / 80 % 02:26 PM 108 / 66 71 90 % 02:31 PM 110 / 65 70 91 % 02:36 PM 108 / 64 71 94 % 02:41 PM 107 / 61 70 93 % 02:46 PM 113 / 66 73 96 % 02:51 PM 119 / 70 71 93 % 02:56 PM 128 / 76 72 94 % 03:01 PM 125 / 69 70 92 % 03:06 PM 119 / 68 70 94 % Procedural Medications Time Medication Dose Units Method Given By 02:19 PM Oxygen 2 L/min nasal cannula Ross Zafar RN 02:23 PM Versed 2 mg Intravenous Ross Zafar RN 02:38 PM Lidocaine 2% 10 ml Subcutaneous Bhavik Roasles DO 02:55 PM Heparin 3000 units Intravenous Ross Zafar RN 02:58 PM Nitroglycerin 100 mcg Intracoronary Bhavik Rosales DO 03:00 PM Morphine 2 mg Intravenous Ross Zafar RN ASA Classification: CLASS IV- Severe systemic that is constant threat to patient's life Daniel Score Preprocedure Postprocedure Activity 2- Moves 4 extremities sustained head lift Activity Circulation 2- SBP +/= 20 points of pre-anesthetic level Circulation Consciousness 2- Awake and alert oriented x 3 Consciousness O2 Saturation 2- Able to maintain O2 satruation of 92% on room air O2 Saturation Respiratory 2- Able to deep breathe and cough well Respiratory Total Score 10 Total Score Contrast Agent: Isovue Diagnostic Contrast: 150 ml Total Contrast: 150 ml Fluoro Dose: 965 mGy Activated Clotting Time Time Seconds to Clot 02:54 PM 136 03:07 PM 230 Procedure Log Time Note Enter By 02:18 PM CathStat 02:19 PM Pt arrived to laborer plumbing 2 at 14:19 [facility] 02:19 PM Patient charges- Angio tray pack, Navilyst 3mm J, Pulse Oximetry and ACIST tubing and transducer jcallihan 02:19 PM Jaguar Barker RN Position: Monitor [facility]: 14:19 [facility] Ross Zafar RN Position: Operations Welder [facility] 14:19 [facility] 02[facility] PM Yessenia Cortez RT (R) Position: Scrub Time in: 14:19 jcallan 02:19 PM Hair removed from procedure site in procedure lab using clippers. Bilateral groin prepped with Chloraprep by Ross Zafar RN, then patient was draped. Skin intact. jcallihan 02:19 PM Physician arrived 14:19 jcallihan 02:19 PM Bari and greet completed [facility] 02[facility]19 PM Sign in performed according to hospital policy. jcallihan 02:19 PM Procedure start 14:19 jcallan :19 PM Time: 14:19 Oxygen on at 2 L/min per nasal cannula by Ross Zafar RN 02:20 PM Time: 14:20 Patient comfortable and pain free: Yes jcallihan :20 PM Time: 14:20LOC: 5 = Fully awake and oriented or at pre-proc level [facility] PM Clinical Presentation: Unstable angina jcallan 02:20 PM Vitals capture started with the following parameters, Patient=Adult, Interval=5 min, Initial Tyhojzfb=164 mmHg, Deflation Rate=5 mmHg, Cuff placed on Right Arm 02:22 PM SCFK=782/80 mmhg 02:23 PM Time: 14:23 Versed 2 mg Intravenous Given by Ross Zafar RN jcgabi 02:26 PM HR=71 bpm, MOMU=446/66 mmhg, SpO2=90.0 %, Comment=nsr 02:31 PM HR=70 bpm, JRSL=691/65 mmhg, SpO2=91.0 %, Comment=nsr 02:36 PM Time: 14:20LOC: 4 = Oriented but drowsy jcallihan 02:36 PM Time: 14:20 Patient comfortable and pain free: Yes jcallihan 02:36 PM HR=71 bpm, YTCI=342/64 mmhg, SpO2=94.0 %, Comment=nsr 02:37 PM ASA Class CLASS IV- Severe systemic that is constant threat to patient's life jcallihan 02:38 PM Time out performed according to hospital policy jcallihan 02:38 PM Time: 14:38 10 ml Lidocaine 2% to right groin Subcutaneous Given by Bhavik Rosales DO jcallihan 02:41 PM HR=70 bpm, QSRQ=530/61 mmhg, SpO2=93.0 %, Comment=nsr 02:41 PM Micro-Introducer Kit utilized for sheath placement [facility] 02[facility]41 PM Access obtained by percutaneous puncture. 6Fr 10cm Terumo [place] sheath placed in right Femoral artery. [id number] jcallihan 02:42 PM 6Fr FR 4 catheter inserted over the wire [facility] 02:43 PM Recorded Pressure: LV, HR=74, Condition=Condition 1 (Left Ventricle) LV 101/3/5 02:43 PM Recorded Pressure: LV, Ao, HR=71, Condition=Condition 1 (Left Ventricle) LV 99/-3/6, (Aorta) Ao 100/52/70 02:44 PM Catheter selectively placed in left ventricle jcallihan 02:44 PM Hand injected LV Gram jcallihan 02:45 PM repositioned cath jcallihan 02:45 PM RCA angiography performed in multiple views. jcallihan 02:45 PM repositioned cath jcallihan 02:46 PM SVG to the RPDA angio performed in multiple views. jcallihan 02:46 PM HR=73 bpm, FKDE=590/66 mmhg, SpO2=96.0 %, Comment=nsr 02:46 PM Recorded Pressure: Ao, HR=71, Condition=Condition 1 (Aorta) Ao 109/55/78 02:47 PM SVG to the 1st OM angio performed in multiple views. jcallihan 02:48 PM SVG to the 1st Diagonal angio performed in multiple views. jcallihan 02:49 PM SVG to the LAD angio performed in multiple views. jcallihan 02:50 PM Catheter removed jcallihan 02:50 PM Coronary Dominance: right jcallihan 02:50 PM 6Fr FL 4 catheter inserted over the wire DN jcallihan 02:51 PM HR=71 bpm, FUGY=083/70 mmhg, SpO2=93.0 %, Comment=nsr 02:51 PM Right Coronary, Right Posterior Descending Arteries with Right Posterolateral and Acute Marginal branches with 100 % stenosis. If graft is supplying this area, 95 % stenosis jcallihan 02:52 PM LCA angiography performed in multiple views. jcallihan 02:52 PM Catheter removed jcallihan 02:52 PM PCI Status Urgent jcallihan 02:52 PM PCI Indication: PCI for high risk Non-STEMI or unstable angina jcallihan 02:52 PM 6Fr JR 4 Runway guide catheter was used to cannulate the PCI vessel successfully. reused? No jcallihan 02:53 PM .014 ChoICE PT Extra Support 300cm guide wire across target lesion- successful. reused? No jcallihan 02:53 PM Inflation device was opened. jcallihan 02:53 PM Recorded Pressure: Ao, HR=73, Condition=Condition 1 (Aorta) Ao 111/57/79 02:54 PM At 14:54 the ACT was 136 seconds. jcallihan 02:55 PM Time: 14:55 Heparin 3000 units Intravenous Given by Ross Zafar RN 02:55 PM Recorded Pressure: Ao, HR=71, Condition=Condition 1 (Aorta) Ao 127/66/91 02:56 PM HR=72 bpm, OSWT=689/76 mmhg, SpO2=94.0 %, Comment=nsr 02:58 PM 3.0mm x 16mm Synergy drug-eluting stent across target lesion- successful Lot #[id number] jcallihan 02:58 PM Time: 14:58 Nitroglycerin 100 mcg Intracoronary Given by Bhavik Rosales DO jcallihan 02:59 PM Stent deployed @ 16 brenda for 15 seconds jcallihan 03:00 PM Stent delivery system removed intact. jcallihan 03:00 PM Recorded Pressure: Ao, HR=68, Condition=Condition 1 (Aorta) Ao 130/65/92 03:01 PM Time: 15:00 Morphine 2 mg Intravenous Given by Ross Zafar RN jcgabi 03:01 PM Groin shot obtained jcallihan 03:01 PM HR=70 bpm, GPAA=443/69 mmhg, SpO2=92.0 %, Comment=nsr 03:02 PM Guide catheter removed intact. jcallihan 03:02 PM Guide wire removed intact. jcallihan 03:03 PM Procedure completed at 15:03 jcallihan 03:03 PM Did you address TRA flow and Dominance? Yes jcallihan 03:03 PM Sign out completed: Radiation Dose 965 mGy Fluoro Time: 6.6 Isovue 370 - 200ml contrast 150 ml given by Bhavik Rosales DO. Complications: NoneCardiac Rehab Consult needed: YesConfirmed administered medications: Yes jcallihan 03:04 PM Isovue 370 - 200ml,1 Bottle(s) used. jcallihan 03:06 PM HR=70 bpm, ICAG=204/68 mmhg, SpO2=94.0 %, Comment=nsr 03:07 PM At 15:07 the ACT was 230 seconds. jcallihan 03:09 PM Sheath left in place to be pulled on floor/holding areaV+Pad jcallihan 03:09 PM Estimated Blood Loss: less than 20cc jcallihan 03:09 PM Post ECG NSR jcallihan 03:09 PM Post Blood Pressure 119/68 jcallihan 03:10 PM 15:09 Post Pulses Bilateral DP 2+ jcallihan 03:10 PM Information taught Cardiac Cath and PCI jcallihan 03:10 PM Education needs Procedure, Plan of Care, and Responsibilities of Patient in Care jcallihan 03:10 PM Learning barriers :None jcallihan 03:10 PM Education Methods Verbal jcallihan 03:10 PM Education evaluation Able to repeat information jcallihan 03:10 PM Site status No bleeding/hematoma - Rt Groin as reported by Yessenia Cortez RT (R) at 15:10 jcallihan 03:10 PM Opsite applied jcallihan 03:10 PM Plavix, Effient or Brilinta given Yes jcallihan 03:11 PM Family placed in consult room. jcallihan 03:11 PM Complications: None jcallihan 03:11 PM Fluoro Time: 6.6 jcallihan 03:11 PM Isovue 370 - 200ml contrast 150 ml given by Bhavik Rosales. jcallihan 03:12 PM Radiation Dose 965 mGy jcallihan 03:12 PM Patient out of room: 15:12 jcallihan 03:21 PM Lesion found in Mid RCA. Pre Stenosis: 100 Pre TRA Flow: jcallihan 03:22 PM Lesion found in Proximal LAD. Pre Stenosis: 100 Pre TRA Flow: jcallihan 03:22 PM Proximal Left Anterior Descending Coronary Artery with 100% stenosis. If graft is supplying this territory, 0 % stenosis. jcallihan 03:28 PM Lesion found in Right PDA. Pre Stenosis: 95 Pre TRA Flow: jcallihan 03:35 PM Pulses and groin site re-checked by Ross Zafar RN. No issues noted. jcallihan 03:50 PM Report given to Sean CONNELLY Pt taken to 2N Room #12. 15:47 jcallihan Complications Complication None None Hemodynamics Pressures Site Systolic/A Wave Diastolic/V Wave Mean LV 101 3 5 LV 99 -3 6 AO 100 52 70 AO 109 55 78 AO 111 57 79 AO 127 66 91 AO 130 65 92 Post Procedure Information Blood Pressure: 119/68 mmHg Rhythm: NSR Post procedural instructions were given Site Checks Time Location Status Staff Sheath In? Note 03:10 PM Rt Groin No bleeding/hematoma Yessenia Cortez RT (R) Pulses Time Site Pre-Procedure Post-Procedure Note Bilateral DP 2+ Bilateral radial 2+ 3:09:00 PM Bilateral DP 2+ Updated by Jaguar Barker RN on 12/17/2017 4:03:11 PM electronically signed on 12/17/2017 4:03:53 PM with status of Final
--- NOTE | 2017-12-17 16:31 | Internal Med Progress Note ---
Date of Encounter: 12/17/17 Time of Encounter: 11:45 - Assessment and plan (1) Unstable angina pectoris Current Visit: Yes Status: Acute Assessment and plan: Patient presented with worsening retrosternal chest pain, associated with EKG changes. Serial troponins are negative. Continue telemetry monitoring. Continue IV nitroglycerin drip for chest pain, ACS protocol with IV heparin drip , aspirin, Plavix, beta vinay and statin. Cardiology consult appreciated, plan for left heart catheterization today. (2) CAD (coronary artery disease) Current Visit: Yes Status: Chronic Assessment and plan: Patient has history of CABG and multiple PCI's, the most recent one probably around 5 months ago at [facility]. Continue current medications, plan for left heart catheterization as mentioned above. Qualifiers: Coronary Disease-Associated Artery/Lesion type: bypass graft [place] vs. transplanted heart: [place] heart Associated angina: with stable angina Qualified Code(s): I25.708 - Atherosclerosis of coronary artery bypass graft(s) , unspecified, with other forms of angina pectoris (3) Systolic CHF Current Visit: Yes Status: Chronic Assessment and plan: Limited echocardiogram shows mildly reduced EF around 45%, mild global LV systolic dysfunction. Continue beta vinay. Qualifiers: Qualified Code(s): I50.22 - Chronic systolic (congestive) heart failure (4) HTN (hypertension) Current Visit: Yes Status: Chronic Qualifiers: Hypertension type: essential hypertension Qualified Code(s): I10 - Essential (primary) hypertension (5) COPD (chronic obstructive pulmonary disease) Current Visit: Yes Status: Chronic Qualifiers: COPD type: unspecified COPD Qualified Code(s): J44.9 - Chronic obstructive pulmonary disease, unspecified - Time Spent With Patient Total time spent is greater than 50% in coordination of care (as documented) at patient's floor/unit and/or counseling patient: - Subjective Interval history: Continues to report at least 4 out of 10 retrosternal chest pain, nonradiating, not associated with palpitations or shortness of breath or dizziness. Reports pain is mainly like a pressure-like sensation. On nitroglycerin drip. - Constitutional Vitals: Temp Pulse Resp BP Pulse Ox 98.1 F 64 17 110/65 92 12/17/17 16:14 12/17/17 16:14 12/17/17 16:14 12/17/17 16:14 12/17/17 16:14 General appearance: Present: A&O X 3, answers questions appropriately - Respiratory Respiratory exam: Present: CTAB. Absent: accessory muscle use, rales, rhonchi, wheezes - Cardiovascular Cardiovascular exam: Present: RRR, +S1, +S2. Absent: diastolic murmur, gallop, rubs, systolic murmur - GI/Abdominal GI/Abdominal exam: Present: normal bowel sounds, soft, no peritoneal signs. Absent: distended, tenderness - Extremities Exam Extremities exam: Present: full ROM, warm, radial pulses palpable and symmetrical. Absent: calf tenderness, cyanotic, pedal edema - Neurological Exam Neurological exam: Present: CN II-XII intact, oriented X3, no focal deficits. Absent: pronater drift, facial droop, speech deficit Internal Medicine: Result - Labs CBC & Chem 7: 12/16/17 21:24 12/17/17 03:24 Labs: Short CBC 12/16/17 Range/Units 21:24 WBC 8.0 (4.3-11.1) K/mcL Hgb 14.2 (12.9-16.9) g/dL Hct 42.1 (37.5-50.1) % Plt Count 257 (140-400) K/mcL Neutrophils # 3.8 (1.6-8.9) K/mcL BMP 12/16/17 12/17/17 21:24 03:24 Sodium 135 L 135 L Potassium 4.0 4.0 Chloride 104 107 Carbon Dioxide 24 23 BUN 22 21 Creatinine 1.11 1.12 Glucose 99 135 H Calcium 9.0 8.4 L Cardiac Enzymes 12/16/17 12/17/17 12/17/17 Range/Units 21:24 03:24 08:36 Troponin I < 0.03 < 0.03 < 0.03 (< 0.04) ng/mL - ABG Interpretation ABG results: PT/INR, D-dimer PT 12.0 Seconds (9.4-12.1) 12/16/17 21:24 Consult Discharge Plan - Plan Referrals: Isabelle Redman, MARKET DEVELOPMENT SPECIALIST [Primary Care Provider] -
[2017-12-17] MEDS ORDERED: *HR* Atropine Sulfate 1 MG/10 ML SYRINGE ONE (17:26)
[2017-12-18] MEDS: *HR* OxyCODONE Immed Rel 5 MG TABLET PO PRN ×2 (06:23→12:39)
[2017-12-18 08:00] LABS: BUN/Creatinine Ratio 16 (6-26); Blood Urea Nitrogen 14 mg/dL (8-23); Calcium 8.6 mg/dL (8.6-10.3); Carbon Dioxide 24 mEq/L (23-29); Chloride 107 mEq/L (98-107); Glucose 105 mg/dL (70-105); Osmolality,Calculated 283 (280-300); Potassium 4.2 mEq/L (3.5-5.1); Sodium 136 mEq/L (136-145); eGFR For African Americans > 60 (> 60); eGFR For Non-African Americans > 60 (> 60)
[2017-12-18 08:03] LABS: Basophils % 0.4 %; Eosinophils # 0.3 K/mcL (0.0-0.6); Eosinophils % 3.7 %; Hemoglobin 13.1 g/dL (12.9-16.9); Immature Granulocytes % 0.3 % (0-4); Lymphocytes # 1.8 K/mcL (0.6-4.6); Lymphocytes % 26.3 %; Mean Corpuscular HGB Conc 32.8 g/dL (31.6-35.5); Mean Corpuscular Hemoglobin 28.8 pg (28.0-33.3); Mean Corpuscular Volume 87.9 fL (83.0-100.0); Mean Platelet Volume 9.2 fL (9.4-12.4); Monocytes # 0.9 K/mcL (0.0-1.3); Monocytes % 13.2 %; Neutrophils # 3.8 K/mcL (1.6-8.9); Platelet Count 217 K/mcL (140-400); Red Blood Count 4.55 M/mcL (4.19-5.50); Red Cell Distribution Width 14.6 % (11.5-14.5); Segmented Neutrophils % 56.1 %
[2017-12-18] MEDS: 0.9 % Sodium Chloride 1,000 ML IVC SCH ×2 (08:36→08:46)
[2017-12-18] MEDS: Aspirin Enteric Coated 81 MG Tablet PO SCH (08:37)
[2017-12-18] MEDS: Ranolazine 500 MG TAB.ER.12H PO SCH (08:37)
[2017-12-18] MEDS: Venlafaxine XR (24 HR) 150 MG CAP.ER.24H PO SCH (08:38)
[2017-12-18] MEDS: OXYCODONE Oral CONC 10 MG/0.5 ML ORAL.SYG SL PRN (08:46)
[2017-12-18 11:21] VITALS: BP 122/81
--- NOTE | 2017-12-18 11:49 | Cardiology Progress Note ---
Date of Encounter: 12/18/17 Time of Encounter: 11:00 Assessment and Plan (1) Unstable angina pectoris Current Visit: Yes Status: Acute Per cardiology: -Symptoms concerning for unstable angina. -S/p LHC yesterday with unofficial report reviewed with PCI. -Chest pain free today. -Educated on dual anti-platelet therapy uninterrupted for at least one year. States understanding. -Right groin access site without hematoma or ecchymosis. Right groin access site management education reviewed with patient. States understanding. -Cardiology will sign off and will follow in otupatient setting. Follow up set. (2) Ischemic cardiomyopathy Current Visit: Yes Status: Resolved Per cardiology: -Known ICM. -TTE with LVEF 45%, global hypokinesis. -TTE 06/15/2017: LVEF 40%. Mildly dilated left surgical. Mild diastolic dysfunction. Atypical septal motion consistent with postoperative status. Normal RV size and function. The basal to mid inferior and inferolateral segments were hypokinetic. No significant valvular dysfunction. -ON BB. -Euvolemic on exam. -Will add low dose gio inhibitor. -CHF education reviewd with patient. (3) CAD (coronary artery disease) Current Visit: Yes Status: Chronic Per cardiology: -Known significant CAD history. -[facility] 07/01/2017 ([facility]): Severe 3V CAD. LAD ostial 100%. RCA mid 100%. OM1 proximal patent stent, then 100% stenosis. SVG to OM2 occluded. SVG to D1 occluded. SVG to dRCA patent with 95% in-stent restenosis of dRCA distal to SVG instertion. LVEDP nl. DENNY x1 in dRCA (final stenosis 0%). -On asa, statin, BB, plavix. Denies missed doses of asa or plavix. -S/p PCI yesterday. Qualifiers: Coronary Disease-Associated Artery/Lesion type: bypass graft [place] vs. transplanted heart: [place] heart Associated angina: with stable angina Qualified Code(s): I25.708 - Atherosclerosis of coronary artery bypass graft(s) , unspecified, with other forms of angina pectoris Discussion w patient/family: The assessment and plan as outlined above was discussed with the patient. Discussed and reviewed with . Subjective Principal diagnosis: unstable angina Interval history: Patient denies chest pain. Denies issues walking or using right leg. States he feels ready to go home. Objective Vital Signs, Last 4 Hours Temp Pulse Resp BP Pulse Ox 12/18/17 11:19 98.4 F 77 16 122/81 94 General: Conversant, No Apparent Distress HEENT: Atraumatic, Normocephaly, Mucus Membranes Moist Neck: No JVD, Normal carotid pulses Cardiac: Reg Rate and Rhythm, Normal S1 and S2, No Murmur Lungs: Normal Breath Sounds, No Wheeze, Rales, Rhonchi Neuro: Alert and responsive, No focal deficits noted Abdomen: Soft, Non-Tender Skin: No rashes noted on visualized skin, Other (Right groin acess site with hematoma or ecchymosis. ) Musculoskeletal: No Chest Wall Tenderness Extremities: No Clubbing, No Cyanosis, No Edema, Normal Pulses Results 12/18/17 07:12 12/18/17 07:12 Lab Results Impressions Echocardiogram Limited Views 12/16/17 16:45 Impressions: LVEF 45%. Mild global LV systolic dysfunction. Borderline mildly dilated left ventricle. Normal right ventricular structure and function. Left Ventricular Wall Motion: Rest Echo Findings The apex, apical inferior, mid inferior, basal inferior, apical anterior, mid anterior, basal anterior, apical septal, mid inferior septal, basal inferior septal, apical lateral, mid anterior lateral, basal anterior lateral, mid anterior septal, mid inferior lateral, basal anterior septal and basal inferior lateral issa were hypokinetic. Findings: Study Quality * Technically adequate exam. ECG Findings * Normal sinus rhythm. Left Ventricle * LVEF 45%. * Borderline mildly dilated left ventricle. Right Ventricle * Normal right ventricular structure and function. Aorta * Normally sized aortic root. Active Medications Acetaminophen (Tylenol) 650 mg PO Q4HR PRN PRN Reason: fever and mild pain Stop: 06/17/18 16:33 Last Admin: 12/17/17 12:46 Dose: 650 mg Albuterol/Ipratropium (Duoneb) 3 ml IH [id number] PRN; Protocol PRN Reason: Shortness Of Breath/Wheezing Stop: 06/17/18 16:33 Aspirin (Aspirin Ec) 81 mg PO DAILY TARAN Stop: 06/18/18 09:01 Last Admin: 12/18/17 08:37 Dose: 81 mg Atorvastatin Calcium (Lipitor) 80 mg PO HS TARAN Stop: 06/17/18 21:01 Last Admin: 12/17/17 21:51 Dose: 80 mg Carvedilol (Coreg) 12.5 mg PO BIDWM [facility] Stop: 06/17/18 18:01 Last Admin: 12/18/17 08:37 Dose: 12.5 mg Clopidogrel Bisulfate (Plavix) 75 mg PO DAILY [facility] Stop: 06/18/18 09:01 Last Admin: 12/18/17 08:38 Dose: 75 mg Sodium Chloride (0.9 % Sodium Chloride) 1,000 mls @ 100 mls/hr IVC .Q10H [facility] Stop: 06/18/18 15:16 Last Admin: 12/18/17 08:46 Dose: Not Given Naloxone HCl (Narcan) 0.4 mg IVP Q2MIN PRN PRN Reason: SEE COMMENTS Stop: 06/17/18 16:37 Omeprazole (Prilosec) 40 mg PO DAILY@0630 [facility] PRN Reason: Protocol Stop: 06/18/18 06:31 Last Admin: 12/18/17 06:22 Dose: 40 mg Ondansetron HCl (Zofran) 4 mg IVP Q8HR PRN PRN Reason: Nausea And Vomiting Stop: 06/17/18 16:37 Oxycodone HCl (Roxicodone) 10 mg PO TID PRN PRN Reason: Severe Pain Last Admin: 12/18/17 06:23 Dose: 10 mg Oxycodone HCl (Oxycodone Oral Conc) 5 mg SL Q4H PRN; Protocol PRN Reason: mild to moderate pain Stop: 06/17/18 16:37 Last Admin: 12/18/17 08:46 Dose: 5 mg Oxycodone HCl (Oxycodone Oral Conc) 10 mg SL Q4H PRN; Protocol PRN Reason: Severe Pain Stop: 06/17/18 16:37 Last Admin: 12/17/17 12:46 Dose: 10 mg Quetiapine Fumarate (Seroquel) 50 mg PO BID [facility] Stop: 06/17/18 21:01 Last Admin: 12/18/17 08:38 Dose: 50 mg Ranolazine (Ranexa) 1,000 mg PO BID [facility] Stop: 06/17/18 21:01 Last Admin: 12/18/17 08:37 Dose: 1,000 mg Venlafaxine HCl (Effexor Xr) 150 mg PO DAILY TARAN PRN Reason: Protocol Stop: 06/18/18 09:01 Last Admin: 12/18/17 08:38 Dose: 150 mg Laboratory Tests 12/18/17 12/18/17 07:12 07:12 Hgb 13.1 Creatinine 0.87 - Imaging and Cardiology Chest Xray: report reviewed Stress Test: report reviewed Echo: report reviewed Cardiac cath: report reviewed - EKG Interpretation EKG results cardiology: other (Telemetry reviewed with average HR previous 12 hours noted to be 69, SR. PVCs and PACs noted.) Consult Discharge Plan - Plan Instructions: Coronary Intravascular Stent Placement (DC) Referrals: Isabelle Redman, CUSTOMER SERVICE SALES ASSOCIATE [Primary Care Provider] -
--- NOTE | 2017-12-18 12:42 | Discharge Summary ---
- NOTES TO OUTPATIENT PROVIDER Notes to Outpatient Provider: chest pain, s/p LHC and PCI Orders not resulted at time of discharge: Pending orders 12/16/17 21:31 EKG [ECG 12 lead ECG] [ECG] Stat 12/17/17 13:26 CL Cardiac Catheterization [CL] Routine 12/17/17 15:14 ECG 12 lead ECG [ECG] Stat Date of Encounter: 12/18/17 Time of Encounter: 09:15 - Discharge Diagnosis (1) Unstable angina pectoris Priority: Primary Status: Acute (2) CAD (coronary artery disease) Priority: Secondary Status: Chronic Qualifiers: Coronary Disease-Associated Artery/Lesion type: bypass graft [place] vs. transplanted heart: [place] heart Associated angina: with stable angina Qualified Code(s): I25.708 - Atherosclerosis of coronary artery bypass graft(s) , unspecified, with other forms of angina pectoris (3) HTN (hypertension) Priority: Secondary Status: Chronic Qualifiers: Hypertension type: essential hypertension Qualified Code(s): I10 - Essential (primary) hypertension (4) COPD (chronic obstructive pulmonary disease) Priority: Secondary Status: Chronic Qualifiers: COPD type: unspecified COPD Qualified Code(s): J44.9 - Chronic obstructive pulmonary disease, unspecified (5) CHF (congestive heart failure) Priority: Secondary Status: Chronic Qualifiers: Heart failure type: systolic Heart failure chronicity: chronic Qualified Code(s): I50.22 - Chronic systolic (congestive) heart failure Hospital course: Mr. Blake is a 62 year old male with the above medical problems, who was admitted with worsening retrosternal chest pain. He was treated for unstable angina with IV heparin drip, aspirin, Plavix, statin, beta vinay and he was also given IV nitroglycerin drip for persistent chest pain. Limited echocardiogram showed EF 45%, mild global systolic dysfunction. Cardiology was consulted, patient underwent left heart catheterization and received PCI/stent, official report still pending. Patient is doing well today , hemodynamically stable, chest pain resolved. Cardiology has evaluated and cleared patient for discharge with outpatient follow-up. He does take aspirin and Plavix at home, which will be continued. Discharge discussed with: patient, nurse - Time Spent with Patient Total time spent providing and/or coordinating discharge services: Greater than 30 minutes (40 min) - Discharge Medications Prescriptions: Aspirin Enteric Coated [Aspirin EC] 81 mg PO DAILY #30 tablet. Home Medications: Atorvastatin [Lipitor] 40 mg PO HS 05/29/16 [History] Carvedilol 12.5 mg PO BID 05/29/16 [History] Clopidogrel [Plavix] 75 mg PO DAILY 05/29/16 [History] Lisinopril [Zestril] 10 mg PO DAILY 05/29/16 [History] Nitroglycerin [Nitrostat] 0.4 mg SL Q5M PRN 05/29/16 [History] OxyCODONE Immed Rel [Roxicodone 10 MG] 10 mg PO TID PRN 05/29/16 [History] Pantoprazole Sodium [Protonix] 40 mg PO BID 05/29/16 [History] Quetiapine Fumarate [Seroquel Xr] 50 mg PO BID 05/29/16 [History] Ranolazine [Ranexa] 1,000 mg PO BID 05/29/16 [History] Venlafaxine HCl [Venlafaxine HCl ER] 150 mg PO DAILY 05/29/16 [History] Aspirin Enteric Coated [Aspirin EC] 81 mg PO DAILY #30 tablet. 12/18/17 [Rx] Allergies/Adverse Reactions: 3 Allergy/AdvReac Type Severity Reaction Status Date / Time No Known Allergies Allergy Verified 10/07/17 11:12 Date of admission: 12/16/17 17:47 Primary care physician: Isabelle Redman CNP Consults: 12/17/17 15:14 Consult to Cardiac Rehabilitation-Phase1 [CONS] Routine Comment: Reason for Consult: AMI Call Completed: Yes Consult to Nurse Navigator [CONS] Routine Comment: Discharging clinician: Fabiola Ornelas Anticipated date of discharge: 12/18/17 - Constitutional Vitals: Temp Pulse Resp BP Pulse Ox 98.4 F 77 16 122/81 94 12/18/17 11:19 12/18/17 11:19 12/18/17 11:19 12/18/17 11:19 12/18/17 11:19 General appearance: Present: A&O X 3, answers questions appropriately - Cardiovascular Cardiovascular exam: Present: RRR, +S1, +S2. Absent: diastolic murmur, gallop, rubs, systolic murmur - Patient Status Disposition: Home, Self-Care Condition: Fair Functional capacity at discharge: independent ambulation Overall status at discharge: patient is progressing back to baseline - Discharge Instructions Instructions: Lisinopril (By mouth), Clopidogrel (By mouth), Coronary Intravascular Stent Placement (DC) Follow Up With: Isabelle Redman CNP [Primary Care Provider] - Forms: ED Satisfaction Letter Additional Instructions: F/up with PCP in 1-2 weeks F/up with Cardiology as scheduled - Diet and Activity Activity: resume usual activities as tolerated (post-cath restrictions per Cardiology) Diet: low fat, low cholesterol, low salt diet
--- NOTE | 2017-12-19 16:22 | Electrocardiograph Report ---
[place] [address] Test Date: 2017-12-16 Pat Name: Sagar Blake Department: 103 Room: 2N12 Gender: M Support Services Rep: SUREKHA : 1955 Requested By: Juan Luis King Order Number: [id number] Reading MD: Jakub Shabazz Measurements Intervals [place] Rate: 63 P: 22 ID: 144 QRS: -5 QRSD: 108 T: 192 QT: 398 QTc: 406 Interpretive Statements SINUS RHYTHM ST DEVIATION AND MODERATE T-WAVE ABNORMALITY, CONSIDER ANTEROLATERAL ISCHEMIA ST DEVIATION AND MODERATE T-WAVE ABNORMALITY, CONSIDER INFERIOR ISCHEMIA Electronically Signed On 12-19-2017 16:21:14 EDT by Jakub Shabazz
--- NOTE | 2017-12-20 15:52 | Electrocardiograph Report ---
[address] [place], [place] [address] Test Date: 2017-12-16 Pat Name: Sagar Blake Department: 111 Room: 2N12 Gender: M Wait Staff: RAW : 1955 Requested By: Edwar Irizarry Order Number: [id number] Reading MD: Steffen Collins Measurements Intervals [place] Rate: 77 P: 155 ME: 148 QRS: 202 QRSD: 107 T: 7 QT: 406 QTc: 438 Interpretive Statements SINUS RHYTHM ARM LEADS REVERSED ANTERIOR ISCHEMIA Electronically Signed On 12-20-2017 15:51:19 EDT by Steffen Collins
== END 2017-12-18 13:15 | disposition home or self-care (01) | DRG 247 ==
LOC: 2NENU 14:26 → EMEROO 14:26 → SUATTDRO 17:47 → 2NENU 18:54 → 2NNU 12-17 15:32
PROVIDERS: ADMIT Family Medicine; ATTEND Internal Medicine

== ENCOUNTER 2021-06-30 12:34 | Inpatient (IN) ==
[2021-06-30 13:38] LABS: Immature Granulocytes % 0.6 % (0-4); Mean Platelet Volume 9.7 fL (9.4-12.4)
[2021-06-30 13:40] LABS: Basophils % 0.3 %; Hematocrit 42.7 % (37.5-50.1); Hemoglobin 13.8 g/dL (12.9-16.9); Immature Platelets 3.6 % (1.1-6.1); Lymphocytes # 1.1 K/mcL (0.6-4.6); Lymphocytes % 31.4 %; Mean Corpuscular HGB Conc 32.3 g/dL (31.6-35.5); Mean Corpuscular Hemoglobin 29.7 pg (28.0-33.3); Monocytes # 0.3 K/mcL (0.0-1.3); Monocytes % 9.2 %; Platelet Count 113 K/mcL (140-400); Red Blood Count 4.64 M/mcL (4.19-5.50); Red Cell Distribution Width 13.4 % (11.5-14.5); Segmented Neutrophils % 58.5 %; White Blood Count 3.5 K/mcL (4.3-11.1)
[2021-06-30 14:05] LABS: Neutrophils # 2.1 K/mcL (1.6-8.9)
[2021-06-30 14:09] LABS: Calcium 8.7 mg/dL (8.6-10.3); Troponin I 0.24 ng/mL (< 0.04)
[2021-06-30] MEDS ORDERED: Aspirin 81 MG TAB.CHEW PO ONE (14:15)
[2021-06-30] MEDS ORDERED: 0.9 % Sodium Chloride 500 ML IVC ONE (14:15)
[2021-06-30] MEDS ORDERED: *HR* Heparin 5,000 UNIT/ML VIAL IVP PRN ×2 (14:41)
[2021-06-30] MEDS ORDERED: *HR* Heparin 5,000 UNIT/ML VIAL IVP ONE (14:41)
[2021-06-30 14:42] LABS: Albumin 3.8 g/dL (3.5-5.7); Albumin/Globulin Ratio 1.3 (1.1-2.2); Bilirubin,Direct 0.2 mg/dL (0.0-0.2); Bilirubin,Indirect 0.5 mg/dL (0.0-1.0); Bilirubin,Total 0.7 mg/dL (0.3-1.0); Globulin 2.9 g/dL (2.4-3.5); Total Protein 6.7 g/dL (6.4-8.9)
[2021-06-30] MEDS ORDERED: Isosorbide MONOnitrate (24 HR) 30 MG TAB.ER.24H PO ONE (14:42)
[2021-06-30] MEDS ORDERED: Heparin 25,000UNIT/250ML 1/2NS 25,000 UNIT/250 ML IV.SOLN IVC SCH (14:45)
[2021-06-30 15:38] LABS: Heparin anti-factor XA UFH < 0.04 IU/mL (0.30-0.70)
[2021-06-30 15:39] LABS: INR 1.1; Prothrombin Time 12.5 Seconds (9.4-12.1)
[2021-06-30 16:13] LABS: Influenza A PCR Negative (Negative); Influenza B PCR Negative (Negative); Resp. Syncytial Virus PCR Negative (Negative)
[2021-06-30 16:40] LABS: SARS-CoV-2 by PCR (In House) Positive (Negative)
[2021-06-30] MEDS ORDERED: Naloxone 0.4 MG/ML INJ IVP PRN (21:09)
[2021-06-30] MEDS ORDERED: Perflutren Lipid Microsphere 1.3 ML in 0.9 % Sodium Chloride 8.7 ML IVP PRN (21:54)
[2021-06-30] MEDS ORDERED: Fluticasone Propionate Nasal 50 MCG/SPRAY BOTTLE NS PRN (21:59)
[2021-06-30] MEDS: Morphine Sulfate 2 MG/ML SYRINGE IVP PRN (23:08)
[2021-07-01 00:27] LABS: Hematocrit 38.4 % (37.5-50.1); Hemoglobin 12.8 g/dL (12.9-16.9); Immature Platelets 2.5 % (1.1-6.1); Mean Corpuscular HGB Conc 33.3 g/dL (31.6-35.5); Mean Corpuscular Hemoglobin 30.1 pg (28.0-33.3); Mean Corpuscular Volume 90.4 fL (83.0-100.0); Mean Platelet Volume 9.7 fL (9.4-12.4); Red Blood Count 4.25 M/mcL (4.19-5.50); Red Cell Distribution Width 13.3 % (11.5-14.5); White Blood Count 2.8 K/mcL (4.3-11.1)
[2021-07-01 00:43] LABS: BUN/Creatinine Ratio 17 (6-26); Blood Urea Nitrogen 20 mg/dL (8-23); Calcium 7.7 mg/dL (8.6-10.3); Carbon Dioxide 20 mEq/L (23-29); Chloride 98 mEq/L (98-107); Glucose 138 mg/dL (70-105); Magnesium 1.6 mg/dL (1.6-2.6); Osmolality,Calculated 265 (280-300); Phosphorous 2.7 mg/dL (2.7-4.5); Sodium 125 mEq/L (136-145); eGFR For African Americans > 60 (> 60); eGFR For Non-African Americans > 60 (> 60)
[2021-07-01 00:59] LABS: Thyroid Stimulating Hormone 0.862 mcIU/mL (0.340-5.600)
[2021-07-01] MEDS: Morphine Sulfate 2 MG/ML SYRINGE IVP PRN ×3 (04:47→16:15)
[2021-07-01] MEDS ORDERED: Acetaminophen 325 MG TABLET PO PRN (08:00)
[2021-07-01] MEDS: Ranolazine 500 MG TAB.ER.12H PO SCH ×2 (09:10→20:17)
[2021-07-01] MEDS: Aspirin Enteric Coated 81 MG Tablet PO SCH (09:11)
[2021-07-01] MEDS: BuPROPion XL (24 HR) 150 MG TABLET PO SCH (09:11)
[2021-07-01] MEDS: Heparin 25,000 UNIT/250 ML 25,000 UNIT/250 ML IV.SOLN IVC SCH (13:01)
[2021-07-01] MEDS: Isosorbide MONOnitrate (24 HR) 30 MG TAB.ER.24H PO SCH (17:40)
[2021-07-01] MEDS: Melatonin 3 MG TABLET PO PRN (20:18)
[2021-07-01] MEDS: *HR* OxyCODONE Immed Rel 5 MG TABLET PO PRN (20:18)
[2021-07-02 06:10] LABS: Immature Granulocytes % 0.7 % (0-4)
[2021-07-02 06:11] LABS: Hematocrit 38.1 % (37.5-50.1); Hemoglobin 12.6 g/dL (12.9-16.9); Immature Platelets 2.7 % (1.1-6.1); Lymphocytes # 0.7 K/mcL (0.6-4.6); Lymphocytes % 25.8 %; Mean Corpuscular HGB Conc 33.1 g/dL (31.6-35.5); Mean Corpuscular Hemoglobin 29.8 pg (28.0-33.3); Mean Corpuscular Volume 90.1 fL (83.0-100.0); Mean Platelet Volume 9.3 fL (9.4-12.4); Monocytes # 0.2 K/mcL (0.0-1.3); Monocytes % 5.5 %; Neutrophils # 1.9 K/mcL (1.6-8.9); Platelet Count 103 K/mcL (140-400); Red Blood Count 4.23 M/mcL (4.19-5.50); Red Cell Distribution Width 13.4 % (11.5-14.5); White Blood Count 2.8 K/mcL (4.3-11.1)
[2021-07-02 06:32] LABS: Platelet Estimate Decreased (Normal)
[2021-07-02 06:47] LABS: BUN/Creatinine Ratio 18 (6-26); Blood Urea Nitrogen 18 mg/dL (8-23); Carbon Dioxide 21 mEq/L (23-29); Chloride 100 mEq/L (98-107); Glucose 104 mg/dL (70-105); Osmolality,Calculated 270 (280-300); Potassium 4.3 mEq/L (3.5-5.1); Sodium 129 mEq/L (136-145); eGFR For African Americans > 60 (> 60); eGFR For Non-African Americans > 60 (> 60)
[2021-07-02] MEDS: Aspirin Enteric Coated 81 MG Tablet PO SCH (09:00)
[2021-07-02] MEDS: BuPROPion XL (24 HR) 150 MG TABLET PO SCH (09:01)
[2021-07-02] MEDS: Ranolazine 500 MG TAB.ER.12H PO SCH ×2 (09:02→20:02)
[2021-07-02] MEDS: Isosorbide MONOnitrate (24 HR) 30 MG TAB.ER.24H PO SCH (09:06)
[2021-07-02] MEDS: *HR* OxyCODONE Immed Rel 5 MG TABLET PO PRN ×2 (13:01→23:27)
[2021-07-02] MEDS: Heparin 25,000 UNIT/250 ML 25,000 UNIT/250 ML IV.SOLN IVC SCH (15:43)
[2021-07-02] MEDS: carvediloL 6.25 MG TABLET PO SCH (16:16)
[2021-07-02] MEDS: Melatonin 3 MG TABLET PO PRN (20:03)
[2021-07-03 06:29] LABS: Basophils % 0.4 %; Hemoglobin 12.3 g/dL (12.9-16.9); Mean Corpuscular Volume 89.6 fL (83.0-100.0)
[2021-07-03 06:30] LABS: Hematocrit 36.9 % (37.5-50.1); Immature Granulocytes % 0.4 % (0-4); Lymphocytes # 0.8 K/mcL (0.6-4.6); Mean Corpuscular HGB Conc 33.3 g/dL (31.6-35.5); Mean Corpuscular Hemoglobin 29.9 pg (28.0-33.3); Monocytes # 0.2 K/mcL (0.0-1.3); Monocytes % 6.3 %; Neutrophils # 1.7 K/mcL (1.6-8.9); Platelet Count 111 K/mcL (140-400); Red Blood Count 4.12 M/mcL (4.19-5.50); Red Cell Distribution Width 13.5 % (11.5-14.5); Segmented Neutrophils % 61.9 %; White Blood Count 2.7 K/mcL (4.3-11.1)
[2021-07-03 06:47] LABS: BUN/Creatinine Ratio 17 (6-26); Blood Urea Nitrogen 15 mg/dL (8-23); Carbon Dioxide 24 mEq/L (23-29); Chloride 95 mEq/L (98-107); Glucose 98 mg/dL (70-105); Osmolality,Calculated 261 (280-300); Potassium 4.3 mEq/L (3.5-5.1); Sodium 125 mEq/L (136-145); eGFR For African Americans > 60 (> 60); eGFR For Non-African Americans > 60 (> 60)
[2021-07-03] MEDS: Ranolazine 500 MG TAB.ER.12H PO SCH ×2 (08:48→20:12)
[2021-07-03] MEDS: BuPROPion XL (24 HR) 150 MG TABLET PO SCH (08:48)
[2021-07-03] MEDS: Aspirin Enteric Coated 81 MG Tablet PO SCH (08:49)
[2021-07-03] MEDS: carvediloL 6.25 MG TABLET PO SCH ×2 (08:49→17:57)
[2021-07-03] MEDS: Isosorbide MONOnitrate (24 HR) 30 MG TAB.ER.24H PO SCH (08:49)
[2021-07-03 09:10] LABS: Alanine Aminotransferase 30 Units/L (7-52); Albumin 3.2 g/dL (3.5-5.7); Albumin/Globulin Ratio 1.1 (1.1-2.2); Alkaline Phosphatase 52 Units/L (34-104); Aspartate Amino Transferase 49 Units/L (13-39); Bilirubin,Direct 0.3 mg/dL (0.0-0.2); Bilirubin,Indirect 0.4 mg/dL (0.0-1.0); Bilirubin,Total 0.7 mg/dL (0.3-1.0); Globulin 2.8 g/dL (2.4-3.5)
[2021-07-03 09:23] LABS: Bilirubin,Urine Negative (Negative); Blood,Urine Negative (Negative); Clarity,Urine Clear (Clear); Color,Urine Yellow (Yellow); Glucose,Urine (UA) Normal (Normal); Ketones,Urine Negative (Negative); Leukocyte Esterase,Urine Negative (Negative); Nitrite,Urine Negative (Negative); Protein,Urine Trace mg/dL (Neg-Trace); Specific Gravity,Urine 1.019 (1.010-1.025)
[2021-07-03 09:24] LABS: Sodium, Urine 28.1 mEq/L
[2021-07-03] MEDS: Ipratropium 1 PUFF INHALER IH SCH ×4 (10:03→20:50)
[2021-07-03] MEDS ORDERED: Remdesivir 200 MG in 0.9 % Sodium Chloride 100 ML IVPB ONE (10:15)
[2021-07-03] MEDS: *HR* OxyCODONE Immed Rel 5 MG TABLET PO PRN (15:21)
[2021-07-03] MEDS: Melatonin 3 MG TABLET PO PRN (20:12)
[2021-07-04] MEDS: Ipratropium 1 PUFF INHALER IH SCH ×6 (00:02→21:05)
[2021-07-04] MEDS: Ranolazine 500 MG TAB.ER.12H PO SCH ×2 (09:35→20:26)
[2021-07-04] MEDS: Aspirin Enteric Coated 81 MG Tablet PO SCH (09:35)
[2021-07-04] MEDS: carvediloL 6.25 MG TABLET PO SCH ×2 (09:36→18:35)
[2021-07-04] MEDS: *HR* OxyCODONE Immed Rel 5 MG TABLET PO PRN (09:36)
[2021-07-04] MEDS: Isosorbide MONOnitrate (24 HR) 30 MG TAB.ER.24H PO SCH (09:36)
[2021-07-04] MEDS: BuPROPion XL (24 HR) 150 MG TABLET PO SCH (09:36)
[2021-07-04 12:32] LABS: Basophils % 0.1 %
[2021-07-04 12:38] LABS: Hematocrit 37.4 % (37.5-50.1); Mean Platelet Volume 9.8 fL (9.4-12.4); Monocytes % 8.8 %
[2021-07-04 12:40] LABS: Hemoglobin 12.5 g/dL (12.9-16.9); Immature Granulocytes % 1.2 % (0-4); Lymphocytes # 0.6 K/mcL (0.6-4.6); Lymphocytes % 8.4 %; Mean Corpuscular HGB Conc 33.4 g/dL (31.6-35.5); Mean Corpuscular Hemoglobin 29.6 pg (28.0-33.3); Mean Corpuscular Volume 88.4 fL (83.0-100.0); Monocytes # 0.7 K/mcL (0.0-1.3); Platelet Count 166 K/mcL (140-400); Red Blood Count 4.23 M/mcL (4.19-5.50); Red Cell Distribution Width 13.5 % (11.5-14.5); Segmented Neutrophils % 81.5 %; White Blood Count 7.4 K/mcL (4.3-11.1)
[2021-07-04 17:14] LABS: Alanine Aminotransferase 103 Units/L (7-52); Albumin 3.2 g/dL (3.5-5.7); Alkaline Phosphatase 64 Units/L (34-104); Aspartate Amino Transferase 141 Units/L (13-39); BUN/Creatinine Ratio 25 (6-26); Bilirubin,Total 0.8 mg/dL (0.3-1.0); Blood Urea Nitrogen 23 mg/dL (8-23); Calcium 8.3 mg/dL (8.6-10.3); Carbon Dioxide 21 mEq/L (23-29); Chloride 96 mEq/L (98-107); Globulin 3.1 g/dL (2.4-3.5); Glucose 135 mg/dL (70-105); Osmolality,Calculated 270 (280-300); Potassium 4.5 mEq/L (3.5-5.1); Sodium 127 mEq/L (136-145); Total Protein 6.3 g/dL (6.4-8.9); eGFR For African Americans > 60 (> 60); eGFR For Non-African Americans > 60 (> 60)
[2021-07-04] MEDS: Remdesivir 100 MG in 0.9 % Sodium Chloride 100 ML IVPB SCH (18:35)
[2021-07-05] MEDS: Ipratropium 1 PUFF INHALER IH SCH ×9 (00:08→23:50)
[2021-07-05] MEDS: Isosorbide MONOnitrate (24 HR) 30 MG TAB.ER.24H PO SCH (09:47)
[2021-07-05] MEDS: carvediloL 6.25 MG TABLET PO SCH ×2 (09:47→17:19)
[2021-07-05] MEDS: Aspirin Enteric Coated 81 MG Tablet PO SCH (09:47)
[2021-07-05] MEDS: BuPROPion XL (24 HR) 150 MG TABLET PO SCH (09:47)
[2021-07-05] MEDS: Ranolazine 500 MG TAB.ER.12H PO SCH ×2 (09:47→21:05)
[2021-07-05] MEDS: *HR* OxyCODONE Immed Rel 5 MG TABLET PO PRN (09:47)
[2021-07-05 13:58] LABS: Basophils % 0.1 %; Hematocrit 36.5 % (37.5-50.1); Hemoglobin 12.5 g/dL (12.9-16.9); Lymphocytes # 0.7 K/mcL (0.6-4.6); Lymphocytes % 9.9 %; Mean Corpuscular HGB Conc 34.2 g/dL (31.6-35.5); Mean Corpuscular Hemoglobin 30.4 pg (28.0-33.3); Mean Corpuscular Volume 88.8 fL (83.0-100.0); Mean Platelet Volume 9.4 fL (9.4-12.4); Monocytes # 0.5 K/mcL (0.0-1.3); Monocytes % 7.1 %; Neutrophils # 5.6 K/mcL (1.6-8.9); Platelet Count 185 K/mcL (140-400); Red Blood Count 4.11 M/mcL (4.19-5.50); Red Cell Distribution Width 13.4 % (11.5-14.5); Segmented Neutrophils % 81.9 %; White Blood Count 6.8 K/mcL (4.3-11.1)
[2021-07-05 14:18] LABS: Alanine Aminotransferase 101 Units/L (7-52); Albumin 3.3 g/dL (3.5-5.7); Albumin/Globulin Ratio 1.1 (1.1-2.2); Alkaline Phosphatase 71 Units/L (34-104); Aspartate Amino Transferase 108 Units/L (13-39); BUN/Creatinine Ratio 28 (6-26); Blood Urea Nitrogen 23 mg/dL (8-23); Calcium 8.5 mg/dL (8.6-10.3); Carbon Dioxide 24 mEq/L (23-29); Chloride 101 mEq/L (98-107); Globulin 2.9 g/dL (2.4-3.5); Glucose 120 mg/dL (70-105); Osmolality,Calculated 281 (280-300); Potassium 4.2 mEq/L (3.5-5.1); Sodium 133 mEq/L (136-145); Total Protein 6.2 g/dL (6.4-8.9); eGFR For African Americans > 60 (> 60); eGFR For Non-African Americans > 60 (> 60)
[2021-07-05] MEDS: Remdesivir 100 MG in 0.9 % Sodium Chloride 100 ML IVPB SCH (17:17)
[2021-07-06 02:03] LABS: Hematocrit 36.5 % (37.5-50.1); Hemoglobin 12.4 g/dL (12.9-16.9); Mean Corpuscular Hemoglobin 29.9 pg (28.0-33.3); Mean Platelet Volume 9.3 fL (9.4-12.4); Platelet Count 191 K/mcL (140-400); Red Blood Count 4.15 M/mcL (4.19-5.50); Red Cell Distribution Width 13.5 % (11.5-14.5); White Blood Count 6.1 K/mcL (4.3-11.1)
[2021-07-06 02:21] LABS: Alanine Aminotransferase 93 Units/L (7-52); Albumin 3.2 g/dL (3.5-5.7); Albumin/Globulin Ratio 1.1 (1.1-2.2); Alkaline Phosphatase 67 Units/L (34-104); Aspartate Amino Transferase 84 Units/L (13-39); BUN/Creatinine Ratio 29 (6-26); Bilirubin,Direct 0.3 mg/dL (0.0-0.2); Bilirubin,Indirect 0.7 mg/dL (0.0-1.0); Blood Urea Nitrogen 24 mg/dL (8-23); Calcium 8.3 mg/dL (8.6-10.3); Carbon Dioxide 22 mEq/L (23-29); Chloride 103 mEq/L (98-107); Glucose 110 mg/dL (70-105); Osmolality,Calculated 281 (280-300); Potassium 4.2 mEq/L (3.5-5.1); Sodium 133 mEq/L (136-145); Total Protein 6.2 g/dL (6.4-8.9); eGFR For African Americans > 60 (> 60); eGFR For Non-African Americans > 60 (> 60)
[2021-07-06] MEDS: Ipratropium 1 PUFF INHALER IH SCH ×5 (04:18→20:44)
[2021-07-06] MEDS: *HR* Enoxaparin 40 MG/0.4 ML SYRINGE SQ SCH (05:33)
[2021-07-06] MEDS: Ranolazine 500 MG TAB.ER.12H PO SCH ×2 (09:12→21:26)
[2021-07-06] MEDS: Aspirin Enteric Coated 81 MG Tablet PO SCH (09:12)
[2021-07-06] MEDS: carvediloL 6.25 MG TABLET PO SCH ×2 (09:12→17:18)
[2021-07-06] MEDS: Isosorbide MONOnitrate (24 HR) 30 MG TAB.ER.24H PO SCH (09:12)
[2021-07-06] MEDS: BuPROPion XL (24 HR) 150 MG TABLET PO SCH (09:12)
[2021-07-06] MEDS: Remdesivir 100 MG in 0.9 % Sodium Chloride 100 ML IVPB SCH (12:05)
[2021-07-06] MEDS: Acetaminophen 325 MG TABLET PO PRN (12:50)
[2021-07-06] MEDS: *HR* OxyCODONE Immed Rel 5 MG TABLET PO PRN ×2 (12:50→21:38)
[2021-07-06] MEDS ORDERED: Isovue-370 500 ML BOTTLE IVP ONE (13:38)
[2021-07-06] MEDS: ALPRAZolam 0.25 MG TABLET PO PRN (13:50)
[2021-07-07] MEDS: Ipratropium 1 PUFF INHALER IH SCH ×6 (00:07→21:10)
[2021-07-07 06:10] LABS: Hematocrit 36.9 % (37.5-50.1); Mean Corpuscular HGB Conc 35.2 g/dL (31.6-35.5); Mean Corpuscular Hemoglobin 31.1 pg (28.0-33.3); Mean Corpuscular Volume 88.3 fL (83.0-100.0); Mean Platelet Volume 9.4 fL (9.4-12.4); Platelet Count 222 K/mcL (140-400); Red Blood Count 4.18 M/mcL (4.19-5.50); Red Cell Distribution Width 13.5 % (11.5-14.5); White Blood Count 6.4 K/mcL (4.3-11.1)
[2021-07-07 06:26] LABS: BUN/Creatinine Ratio 30 (6-26); Blood Urea Nitrogen 24 mg/dL (8-23); Calcium 8.4 mg/dL (8.6-10.3); Carbon Dioxide 22 mEq/L (23-29); Chloride 103 mEq/L (98-107); Glucose 94 mg/dL (70-105); Osmolality,Calculated 278 (280-300); Potassium 4.3 mEq/L (3.5-5.1); Sodium 132 mEq/L (136-145); eGFR For African Americans > 60 (> 60); eGFR For Non-African Americans > 60 (> 60)
[2021-07-07] MEDS: *HR* Enoxaparin 40 MG/0.4 ML SYRINGE SQ SCH (06:28)
[2021-07-07] MEDS: Aspirin Enteric Coated 81 MG Tablet PO SCH (08:59)
[2021-07-07] MEDS: Ranolazine 500 MG TAB.ER.12H PO SCH ×2 (08:59→20:20)
[2021-07-07] MEDS: carvediloL 6.25 MG TABLET PO SCH ×2 (08:59→18:08)
[2021-07-07] MEDS: Isosorbide MONOnitrate (24 HR) 30 MG TAB.ER.24H PO SCH (08:59)
[2021-07-07] MEDS: BuPROPion XL (24 HR) 150 MG TABLET PO SCH (09:00)
[2021-07-07] MEDS: Remdesivir 100 MG in 0.9 % Sodium Chloride 100 ML IVPB SCH (09:01)
[2021-07-07] MEDS: ALPRAZolam 0.25 MG TABLET PO PRN ×2 (09:15→18:09)
[2021-07-07] MEDS: *HR* OxyCODONE Immed Rel 5 MG TABLET PO PRN ×2 (09:15→18:08)
[2021-07-08] MEDS: Ipratropium 1 PUFF INHALER IH SCH ×5 (00:23→20:51)
[2021-07-08 02:06] LABS: Hematocrit 37.7 % (37.5-50.1); Hemoglobin 12.5 g/dL (12.9-16.9); Mean Corpuscular HGB Conc 33.2 g/dL (31.6-35.5); Mean Corpuscular Hemoglobin 29.8 pg (28.0-33.3); Mean Corpuscular Volume 89.8 fL (83.0-100.0); Mean Platelet Volume 9.5 fL (9.4-12.4); Platelet Count 209 K/mcL (140-400); Red Cell Distribution Width 13.5 % (11.5-14.5); White Blood Count 7.4 K/mcL (4.3-11.1)
[2021-07-08 02:21] LABS: BUN/Creatinine Ratio 31 (6-26); Blood Urea Nitrogen 25 mg/dL (8-23); Calcium 8.1 mg/dL (8.6-10.3); Carbon Dioxide 21 mEq/L (23-29); Chloride 104 mEq/L (98-107); Glucose 103 mg/dL (70-105); Osmolality,Calculated 273 (280-300); Potassium 4.6 mEq/L (3.5-5.1); Sodium 129 mEq/L (136-145); eGFR For African Americans > 60 (> 60); eGFR For Non-African Americans > 60 (> 60)
[2021-07-08] MEDS: *HR* Enoxaparin 40 MG/0.4 ML SYRINGE SQ SCH (05:29)
[2021-07-08] MEDS: *HR* OxyCODONE Immed Rel 5 MG TABLET PO PRN ×2 (08:16→20:02)
[2021-07-08] MEDS: ALPRAZolam 0.25 MG TABLET PO PRN (08:16)
[2021-07-08] MEDS: Aspirin Enteric Coated 81 MG Tablet PO SCH (08:17)
[2021-07-08] MEDS: Ranolazine 500 MG TAB.ER.12H PO SCH ×2 (08:17→20:02)
[2021-07-08] MEDS: BuPROPion XL (24 HR) 150 MG TABLET PO SCH (08:17)
[2021-07-08] MEDS: Isosorbide MONOnitrate (24 HR) 30 MG TAB.ER.24H PO SCH (08:17)
[2021-07-08] MEDS: carvediloL 6.25 MG TABLET PO SCH ×2 (08:17→15:58)
[2021-07-08] MEDS: ALPRAZolam 0.25 MG TABLET PO SCH ×2 (14:30→20:02)
[2021-07-09] MEDS: Ipratropium 1 PUFF INHALER IH SCH ×2 (03:49→09:17)
[2021-07-09 03:53] VITALS: BP 120/60; PULSE 66; TEMP 97.7
[2021-07-09] MEDS: *HR* Enoxaparin 40 MG/0.4 ML SYRINGE SQ SCH (05:27)
[2021-07-09] MEDS: Ranolazine 500 MG TAB.ER.12H PO SCH (08:56)
[2021-07-09] MEDS: Isosorbide MONOnitrate (24 HR) 30 MG TAB.ER.24H PO SCH (08:56)
[2021-07-09] MEDS: BuPROPion XL (24 HR) 150 MG TABLET PO SCH (08:56)
[2021-07-09] MEDS: carvediloL 6.25 MG TABLET PO SCH (08:57)
[2021-07-09] MEDS: ALPRAZolam 0.25 MG TABLET PO SCH (08:57)
[2021-07-09] MEDS: Aspirin Enteric Coated 81 MG Tablet PO SCH (08:57)
[2021-07-09] MEDS ORDERED: Furosemide 20 MG/2 ML VIAL IVP SCH (09:00)
[2021-07-09] MEDS: Acetaminophen 325 MG TABLET PO PRN (11:40)
[2021-07-09 14:07] VITALS: O2SAT 92
== END 2021-07-09 15:55 | disposition home health service (06) | DRG 280 ==
LOC: EMEROOARM 12:34 → 3ANU 12:34 → SUATTDRO 20:11 → 3ANU 21:00 → SUATTDRO 07-02 14:34
PROVIDERS: ADMIT Internal Medicine; ATTEND Internal Medicine